=== PATIENT | female | born 1955 | race Caucasian/White ===

== ENCOUNTER 2021-07-24 16:37 | Inpatient (IN) | payer MEDICARE, MEDICAID, SELFPAY ==
[2021-07-24] VITALS (7 sets, daily range): BP systolic 102–121; BP diastolic 60–79; PULSE 76–122; RESP 16–24; TEMP 36.6–37.1; O2SAT 95–99; BMI 30.9
--- NOTE | 2021-07-24 | ECG_ITS ---
Test Reason : CHEST PAIN Blood Pressure : / mmHG Vent. Rate : 113 BPM Atrial Rate : 000 BPM P-R Int : 000 ms QRS Dur : 142 ms QT Int : 312 ms P-R-T Axes : 000 -24 240 degrees QTc Int : 427 ms Atrial fibrillation with rapid ventricular response with premature ventricular or aberrantly conducted complexes Left bundle branch block Abnormal ECG Electronic ventricular pacemaker is no longer evident QRS duration has increased Referred By: Generic ED Physician Electronically Signed By:JENNIFER TUTTLE MD
--- NOTE | ~2021-07-24 | XR_ITS ---
EXAMINATION: XR CHEST CLINICAL INFORMATION: Shortness of breath COMPARISON: 11/29/2016 and priors TECHNIQUE: AP portable upright view of the chest was obtained. FINDINGS: Left 3-lead AICD unchanged. Grossly stable heart and mediastinum. The central vessels are less well-defined than on prior. There are bilateral pleural effusions. Favor mild interstitial edema. There is a more dense right retrocardiac opacity which could represent focal consolidation such as pneumonia. Nonobstructive gas pattern. Stable degenerative spine disease. XR/XR chest 1V IMPRESSION: 1. Suspect pulmonary edema with indistinct prominent central vessels and small bilateral effusions. 2. Abnormal focal opacity in the medial right base, possibly pneumonia.
--- NOTE | 2021-07-24 17:18 | ED.SOB ---
HPI - SOB/Dyspnea General Chief Complaint: Dyspnea Stated Complaint: sob, chest tightness Time Seen by Provider: 07/24/21 17:15 Source: patient Mode of arrival: ambulatory Limitations: no limitations History of Present Illness HPI Narrative: Patient with history of congestive heart failure status post pacemaker placement negative cardiac catheterization few years ago negative stress test 6 months ago with history of atrial fibrillation in 2011 on baby aspirin comes here for 4 days of increased shortness of breath and palpitation with chest tightness noticed to have a heart rate of 122 beats per minute irregular. Patient never had similar complaints in the past denies any increased leg swelling patient does remember that she was told that she had AFib in 2011 when she had a pacemaker placed but she refused to take Eliquis Related Data Home Medications Medication Instructions Recorded Confirmed aspirin 81 mg chewable tablet 81 mg PO DAILY 07/24/21 07/24/21 biotin 125 mg PO DAILY 07/24/21 07/24/21 calcium carbonate 500 mg calcium 500 mg PO DAILY 07/24/21 07/24/21 (1,250 mg) tablet (Calcium 500) carvedilol 25 mg tablet 25 mg PO BID 07/24/21 07/24/21 cholecalciferol (vitamin D3) 125 125 mcg PO BID 07/24/21 07/24/21 mcg (5,000 unit) tablet (Vitamin D3) folic acid 1 mg tablet 1 mg PO SUMOTUTHFRSA 07/24/21 07/24/21 lisinopril 2.5 mg tablet 2.5 mg PO BEDTIME 07/24/21 07/24/21 methotrexate sodium 2.5 mg tablet 5 tab PO WE 07/24/21 07/24/21 multivitamin 1 tab PO DAILY 07/24/21 07/24/21 simvastatin 20 mg tablet 20 mg PO BEDTIME 07/24/21 07/24/21 Allergies Allergy/AdvReac Type Severity Reaction Status Date / Time erythromycin base Allergy Unknown NAUSEA Verified 07/24/21 16:52 [ERYTHROMYCIN BASE] indomethacin [Indomethacin] Allergy Unknown STOMACH Verified 07/24/21 16:52 UPSET & HEADACHE Sulfa (Sulfonamide Allergy Unknown Hives Verified 07/24/21 16:52 Antibiotics) sulfamethoxazole Allergy Unknown HIVES Verified 07/24/21 16:52 [From BACTRIM] trimethoprim [From BACTRIM] Allergy Unknown HIVES Verified 07/24/21 16:52 azithromycin [From Zithromax] AdvReac Unknown NAUSEA & Verified 07/24/21 16:52 VOMITTING Pt states no known food Allergy Unknown Hives Uncoded 07/24/21 16:52 allerg Review of Systems Review of Systems: Yes all other systems are reviewed and are negative [facility] Social History Social History Smoked in Last 30 Days: No Use of substances other than those prescribed or required for medical reasons: No Advance Directives: No Advance Directives Information Provided: No Physical Exam Vital Signs: Vital Signs: Last Vital Signs Temp 98.7 F 07/24/21 19:22 Pulse 121 H 07/24/21 19:51 Resp 17 07/24/21 19:22 BP 102/66 07/24/21 19:51 Pulse Ox 98 07/24/21 19:22 Body Mass Index 30.9 Appearance: Alert. Oriented X3. No acute distress. Eyes: No pallor or icterus ENT: Pharynx normal. Oral Mucosa moist Neck: Normal inspection. Neck supple. CVS: Irregular irregular heart rate no murmur or gallop Pulses normal. Respiratory: No respiratory distress. Equal air entry bilateral, no wheezing/rales/rhonchi Abdomen: Soft and nontender. Bowel sounds are present, no mass palpable, no CVA tenderness Skin: Skin warm and dry. Normal skin color. Normal skin turgor. Extremities: No lower extremity edema. No calf tenderness Neuro: Oriented X 3. No focal deficit MDM - SOB/Dyspnea MDM Narrative Medical decision making narrative: Patient with remote history of atrial fibrillation came with increased shortness of breath with palpitation noticed to be in atrial fibrillation with fast ventricular rate with CHF responded to Cardizem and lasix, 2 sets of cardiac enzymes negative for any delta change will start patient on Eliquis for chads score of 3 will admit patient for further evaluation Lab Data Attestation: I reviewed the patient's lab results. Result diagrams: 07/24/21 17:58 07/24/21 17:58 Labs: Lab Results 07/24/21 07/24/21 07/24/21 Range/Units 17:55 17:58 17:58 WBC 5.4 (4.8-10.8) X10*3/uL RBC 3.51 L (4.20-5.50) X10*6/uL Hgb 10.9 L (12.0-16.0) g/dl Hct 34.1 L (37.0-47.0) % MCV 97.2 (80.0-98.0) fL MCH 31.1 (27.0-33.0) pg MCHC 32.0 (31.0-35.0) g/dl RDW 14.4 (11.0-16.0) % Plt Count 214 (160-400) X10*3/uL MPV 10.5 (9.4-12.3) fL Immature Gran % (Auto) 0.4 (0.0-0.4) % Neut % (Auto) 70.9 (45-73) % Lymph % (Auto) 17.5 L (20-40) % [place] % (Auto) 8.4 (2-11) % Eos % (Auto) 2.2 (0-4) % Baso % (Auto) 0.6 (0-2) % Lymph # (Auto) 0.9 L (1.2-4.9) X10*3/uL [place] # (Auto) 0.5 (0.1-1.2) X10*3/uL Eos # (Auto) 0.1 (0.0-0.4) X10*3/uL Baso # (Auto) 0.0 (0.0-0.2) X10*3/uL Abs Immat Gran (auto) 0.02 (0.00-0.03) X10*3/uL Absolute Neuts (auto) 3.82 (2.0-8.3) x10*3/uL Absolute Nucleated RBC 0.000 (0.0-0.012) X10*3/uL Nucleated RBC % (auto) 0.0 (0.0-0.2) /100WBC PT (9.9-13.0) SEC INR (0.9-1.1) APTT (24.1-38.0) SEC Sodium 138 (135-145) mmol/L Potassium 4.7 (3.3-5.1) mmol/L Chloride 109 H (96-108) mmol/L Carbon Dioxide 22 (22-29) mmol/L Anion Gap 12 (12-20) BUN 17 H (9-16) mg/dL Creatinine 1.02 (0.5-1.4) mg/dL Estim Creat Clear Calc 56.0 Estimated GFR 54 Random Glucose 113 (60-115) mg/dL Calcium 8.8 (8.4-10.2) mg/dL Magnesium 1.9 (1.6-2.6) mg/dL Total Bilirubin 0.9 (0.0-1.0) mg/dL Direct Bilirubin 0.4 (0.0-0.5) mg/dL AST 19 (5-31) U/L ALT 17 (0-31) U/L Alkaline Phosphatase 83 (39-117) U/L Troponin I High Sens (<3.5-17.0) ng/L B-Natriuretic Peptide (<100) pg/mL Total Protein 6.0 L (6.5-8.0) g/dL Albumin 3.6 (3.5-5.0) g/dL COVID-19 (CHIDI) Negative (Negative) COVID-19 Clin Com See Note 07/24/21 07/24/21 07/24/21 Range/Units 17:58 18:22 20:21 WBC (4.8-10.8) X10*3/uL RBC (4.20-5.50) X10*6/uL Hgb (12.0-16.0) g/dl Hct (37.0-47.0) % MCV (80.0-98.0) fL MCH (27.0-33.0) pg MCHC (31.0-35.0) g/dl RDW (11.0-16.0) % Plt Count (160-400) X10*3/uL MPV (9.4-12.3) fL Immature Gran % (Auto) (0.0-0.4) % Neut % (Auto) (45-73) % Lymph % (Auto) (20-40) % [place] % (Auto) (2-11) % Eos % (Auto) (0-4) % Baso % (Auto) (0-2) % Lymph # (Auto) (1.2-4.9) X10*3/uL [place] # (Auto) (0.1-1.2) X10*3/uL Eos # (Auto) (0.0-0.4) X10*3/uL Baso # (Auto) (0.0-0.2) X10*3/uL Abs Immat Gran (auto) (0.00-0.03) X10*3/uL Absolute Neuts (auto) (2.0-8.3) x10*3/uL Absolute Nucleated RBC (0.0-0.012) X10*3/uL Nucleated RBC % (auto) (0.0-0.2) /100WBC PT 15.9 H (9.9-13.0) SEC INR 1.4 H (0.9-1.1) APTT 31.1 (24.1-38.0) SEC Sodium (135-145) mmol/L Potassium (3.3-5.1) mmol/L Chloride (96-108) mmol/L Carbon Dioxide (22-29) mmol/L Anion Gap (12-20) BUN (9-16) mg/dL Creatinine (0.5-1.4) mg/dL Estim Creat Clear Calc Estimated GFR Random Glucose (60-115) mg/dL Calcium (8.4-10.2) mg/dL Magnesium (1.6-2.6) mg/dL Total Bilirubin (0.0-1.0) mg/dL Direct Bilirubin (0.0-0.5) mg/dL AST (5-31) U/L ALT (0-31) U/L Alkaline Phosphatase (39-117) U/L Troponin I High Sens 18.5 H* 20.2 H* (<3.5-17.0) ng/L B-Natriuretic Peptide 603 H (<100) pg/mL Total Protein (6.5-8.0) g/dL Albumin (3.5-5.0) g/dL COVID-19 (CHIDI) (Negative) COVID-19 Clin Com ECG Data Attestation: I personally reviewed and interpreted this ECG as follows: Interpretation: Atrial fibrillation with heart rate 113 beats per minute left bundle branch block unifocal PVCs no acute ischemic event Discharge Plan Discharge Clinical Impression: Atrial fibrillation with RVR Congestive heart failure Qualifiers: Heart failure type: systolic Heart failure chronicity: acute on chronic Qualified Code(s): I50.23 - Acute on chronic systolic (congestive) heart failure Patient Disposition: Admitted As Inpatient
[2021-07-24] MEDS: dilTIAZem HCL 50 MG/10 ML VIAL 10 MG IVPUSH ×2 (18:01→19:48)
[2021-07-24 18:05] LABS: MANUAL DIFF FLAG NO
[2021-07-24 18:19] LABS: COVID-19 Test Negative (Negative); IDNOW Serial# 9DD0AD1C
[2021-07-24 18:21] LABS: Alanine Aminotransferase 17 U/L (0-31); Albumin Level 3.6 g/dL (3.5-5.0); Alkaline Phosphatase 83 U/L (39-117); Anion Gap 12 (12-20); Aspartate Amino Transferase 19 U/L (5-31); Bilirubin Direct 0.4 mg/dL (0.0-0.5); Bilirubin Total 0.9 mg/dL (0.0-1.0); Blood Urea Nitrogen 17 mg/dL (9-16); Calcium 8.8 mg/dL (8.4-10.2); Carbon Dioxide 22 mmol/L (22-29); Chloride 109 mmol/L (96-108); Estimated Glomerular Filt Rate 54; Glucose Random 113 mg/dL (60-115); Magnesium 1.9 mg/dL (1.6-2.6); Potassium 4.7 mmol/L (3.3-5.1); Sodium 138 mmol/L (135-145)
[2021-07-24 18:32] LABS: Basophils Percent Auto 0.6 % (0-2); Eosinophils Absolute Auto 0.1 X10*3/uL (0.0-0.4); Eosinophils Percent Auto 2.2 % (0-4); Hematocrit 34.1 % (37.0-47.0); Hemoglobin 10.9 g/dl (12.0-16.0); Imm Gran Abs Auto 0.02 X10*3/uL (0.00-0.03); Imm Gran Pct Auto 0.4 % (0.0-0.4); Lymphocytes Absolute Auto 0.9 X10*3/uL (1.2-4.9); Lymphocytes Percent Auto 17.5 % (20-40); Mean Corpuscular Hemoglobin 31.1 pg (27.0-33.0); Mean Corpuscular Volume 97.2 fL (80.0-98.0); Mean Platelet Volume 10.5 fL (9.4-12.3); Monocytes Absolute Auto 0.5 X10*3/uL (0.1-1.2); Monocytes Percent Auto 8.4 % (2-11); Neutrophils Absolute Auto 3.82 x10*3/uL (2.0-8.3); Neutrophils Percent Auto 70.9 % (45-73); Platelet Count 214 X10*3/uL (160-400); Red Blood Count 3.51 X10*6/uL (4.20-5.50); Red Cell Distribution Width 14.4 % (11.0-16.0); White Blood Count 5.4 X10*3/uL (4.8-10.8)
[2021-07-24 18:34] LABS: B Type Natriuretic Peptide 603 pg/mL (<100); Troponin-I High Sensitivity 18.5 ng/L (<3.5-17.0)
[2021-07-24] MEDS: Furosemide 20 MG/2 ML VIAL IVPUSH (18:36)
[2021-07-24 18:37] LABS: INTERNATIONAL NORM RATIO 1.4 (0.9-1.1); Prothrombin Time 15.9 SEC (9.9-13.0)
[2021-07-24 18:39] LABS: Partial Thromboplastin Time 31.1 SEC (24.1-38.0)
[2021-07-24] MEDS: Apixaban 5 MG TABLET PO (19:24)
--- NOTE | 2021-07-24 19:25 | PHA.MEDREC ---
Pharmacy Consult ? Medication Reconciliation Pharmacy has completed the medication reconciliation. There are no remarkable issues for provider's attention. Patient had a list of medications that match fill history. Destini Blackburn, CodiD
[2021-07-24] MEDS: dilTIAZem HCL CD 120 MG CAP.ER.DEG PO (19:51)
--- NOTE | 2021-07-24 21:33 | P.HPHOSP_ITS ---
History of Present Illness Date of Service: 07/24/21 Chief Complaint: SOB 66-year-old female with past medical history of CHF, status post defibrillator/pacemaker, history of atrial fibrillation, rheumatoid arthritis who presents to the hospital with complaints of shortness of breath as well as chest pain. Patient reports that she started having symptoms about 5 days ago where she developed dyspnea worsened on exertion, orthopnea, PND, she denies any leg swelling, no cough or sputum production. She also developed left-sided chest pain that is not radiating, chest pain feels like tightness in the chest, constant, midsternal, nonradiating, associated with a lot of activity around the house as the patient is trying to sell her house, 03/31, not relieved by rest. No 6 [place] exacerbate soni. Patient reports that she is selling her house therefore she has been doing a lot of cleaning and moving in going up and down 3 stories of stairs throughout the day and has been feeling a lot of stress lately. She denies any fever or chills, no dizziness, no headache, no palpitations, no nausea or vomiting, no change in vision, no abdominal pain, no diarrhea or constipation, no urinary symptoms. No numbness tingling or weakness Stable with temp of 98.7?, heart rate was found to be around 110 to 120s, r espiratory rate of 17, blood pressure 102/66 on room air Labs are significant for hemoglobin of 10.9, PT of 15.9, INR of 1.4, BUN of 17 with a creatinine of 1.02, troponin of 18.5 with a repeat of 20.2, BNP of 603 Suspect pulmonary edema with indistinct prominent central vessels and small bilateral effusions EKG showed AFib with RVR, LBB, no previous for comparison. reports that she has history of AFib but refused to take anticoagulation as she was afraid of the risks but is willing to start taking anticoagulation now Patient given 1 dose of Eliquis in the ED, Cardizem IV push and will be admitted for further management Review of Systems Review of Systems: Yes all other systems are reviewed and are negative [facility] Medical History (Updated 07/25/21 @ 06:05 by Chloe Dukes MD) Atrial fibrillation Blind left eye CHF (congestive heart failure) H/O cardiac pacemaker Rheumatoid arthritis Pertinent family history: Denies family history Surgical History (Updated 07/25/21 @ 06:05 by Chloe Dukes MD) No pertinent past surgical history Social History Household Members: Significant Other Housing: House Do you presently have visiting nurse or other home services: No Patient Tobacco Use Status: Former Tobacco user Quit Date: 2010 Tobacco use type: Cigarette Cigarette Packs Per Day: 1 Cigarettes Per Day: 20.0 Smoked in Last 30 Days: No Second Hand Smoke Exposure: No Use of substances other than those prescribed or required for medical reasons: No Currently Displaying Signs/Symptoms of Drug Intoxication Withdrawal: No Have you been hit, kicked, punched, or otherwise hurt by someone within the past year? If so, by whom?: No Do you feel safe in your current relationship?: Yes Is there a partner from a previous relationship who is making you feel unsafe now?: No Are you made to feel afraid or neglected: No Advance Directives: No Advance Directives Information Provided: No Do you have thoughts of harming others: None Do you have a plan to hurt others: No Plan Recently lost weight without trying: No Nutrition Risks: No Nutritional Risk Patient : No : No Poor oral hygiene: No Meds Allergies Allergy/AdvReac Type Severity Reaction Status Date / Time erythromycin base Allergy Unknown NAUSEA Verified 07/24/21 16:52 [ERYTHROMYCIN BASE] indomethacin [Indomethacin] Allergy Unknown STOMACH Verified 07/24/21 16:52 UPSET & HEADACHE Sulfa (Sulfonamide Allergy Unknown Hives Verified 07/24/21 16:52 Antibiotics) sulfamethoxazole Allergy Unknown HIVES Verified 07/24/21 16:52 [From BACTRIM] trimethoprim [From BACTRIM] Allergy Unknown HIVES Verified 07/24/21 16:52 azithromycin [From Zithromax] AdvReac Unknown NAUSEA & Verified 07/24/21 16:52 VOMITTING Pt states no known food Allergy Unknown Hives Uncoded 07/24/21 16:52 allerg Active Medications: Current Medications Pharmacy Consult (Consult Rx Perform Med Rec) 1 each MISCELLANE ONCE PRN PRN Reason: Consult order Home Medications Medication Instructions Recorded Confirmed Last Taken Type aspirin 81 mg chewable tablet 81 mg PO DAILY 07/24/21 07/24/21 07/24/21 History biotin 125 mg PO DAILY 07/24/21 07/24/21 07/24/21 History calcium carbonate 500 mg calcium 500 mg PO DAILY 07/24/21 07/24/21 07/24/21 History (1,250 mg) tablet (Calcium 500) carvedilol 25 mg tablet 25 mg PO BID 07/24/21 07/24/21 07/24/21 History cholecalciferol (vitamin D3) 125 125 mcg PO BID 07/24/21 07/24/21 07/24/21 History mcg (5,000 unit) tablet (Vitamin D3) folic acid 1 mg tablet 1 mg PO SUMOTUTHFRSA 07/24/21 07/24/21 07/24/21 History lisinopril 2.5 mg tablet 2.5 mg PO BEDTIME 07/24/21 07/24/21 07/23/21 History methotrexate sodium 2.5 mg tablet 5 tab PO WE 07/24/21 07/24/21 07/18/21 History multivitamin 1 tab PO DAILY 07/24/21 07/24/21 07/24/21 History simvastatin 20 mg tablet 20 mg PO BEDTIME 07/24/21 07/24/21 07/23/21 History Physical Exam Vital Signs and Narrative: Vital Signs: Last Vital Signs Temp 98.7 F 07/24/21 19:22 Pulse 121 H 07/24/21 19:51 Resp 17 07/24/21 19:22 BP 102/66 07/24/21 19:51 Pulse Ox 98 07/24/21 19:22 Body Mass Index 30.9 Const: General: cooperative and no acute distress Orientation/consciousness: patient oriented x3 Eyes: General: appearance normal, both eyes and all related structures Pupils: Equal, round and reactive pupils present Resp: Effort & Inspection: normal respiratory effort Auscultation: clear to auscultation bilaterally Cardio: Other: Tachycardia, irregular rhythm GI: Palpation (GI): Soft to palpation Auscultation: normal bowel sounds Skin: General skin exam: no rashes or lesions noted Neuro: General: patient oriented x3 Cranial nerves: Yes Equal, round and reactive pupils present Cognition (Neuro): normal cognition Extrem: General: Yes normal to inspection and Yes no pedal edema Results Labs CBC and Chem 7: 07/24/21 17:58 07/24/21 17:58 Labs: Laboratory Results - last 24 hr 07/24/21 07/24/21 07/24/21 17:55 17:58 17:58 MCV 97.2 MCH 31.1 MCHC 32.0 RDW 14.4 Plt Count 214 MPV 10.5 Immature Gran % (Auto) 0.4 Neut % (Auto) 70.9 Lymph % (Auto) 17.5 L [place] % (Auto) 8.4 Eos % (Auto) 2.2 Baso % (Auto) 0.6 Lymph # (Auto) 0.9 L [place] # (Auto) 0.5 Eos # (Auto) 0.1 Baso # (Auto) 0.0 Abs Immat Gran (auto) 0.02 Absolute Neuts (auto) 3.82 Absolute Nucleated RBC 0.000 Nucleated RBC % (auto) 0.0 PT INR APTT Anion Gap 12 Estim Creat Clear Calc 56.0 Estimated GFR 54 Random Glucose 113 Calcium 8.8 Magnesium 1.9 Total Bilirubin 0.9 Direct Bilirubin 0.4 AST 19 ALT 17 Alkaline Phosphatase 83 Troponin I High Sens B-Natriuretic Peptide Total Protein 6.0 L Albumin 3.6 COVID-19 (CHIDI) Negative COVID-19 Clin Com See Note 07/24/21 07/24/21 07/24/21 17:58 18:22 20:21 MCV MCH MCHC RDW Plt Count MPV Immature Gran % (Auto) Neut % (Auto) Lymph % (Auto) [place] % (Auto) Eos % (Auto) Baso % (Auto) Lymph # (Auto) [place] # (Auto) Eos # (Auto) Baso # (Auto) Abs Immat Gran (auto) Absolute Neuts (auto) Absolute Nucleated RBC Nucleated RBC % (auto) PT 15.9 H INR 1.4 H APTT 31.1 Anion Gap Estim Creat Clear Calc Estimated GFR Random Glucose Calcium Magnesium Total Bilirubin Direct Bilirubin AST ALT Alkaline Phosphatase Troponin I High Sens 18.5 H* 20.2 H* B-Natriuretic Peptide 603 H Total Protein Albumin COVID-19 (CHIDI) COVID-19 Clin Com ECG Interpretation: AFib with RVR with LBBB Imaging Radiologist's Impressions: Impressions Chest X-Ray 07/24/21 17:42 IMPRESSION: 1. Suspect pulmonary edema with indistinct prominent central vessels and small bilateral effusions. 2. Abnormal focal opacity in the medial right base, possibly pneumonia. Assessment and Plan (1) CHF exacerbation: Status: Acute (2) Atrial fibrillation with RVR: Status: Acute (3) Chest pain: Status: Acute (4) Elevated troponin: Status: Acute This is a 66-year-old female with past medical history of congestive heart failure as well as AFib who presents to the hospital with shortness of breath found to have CHF exacerbation and AFib with RVR # dyspnea - most likely secondary to CHF exacerbation, unlikely to be secondary to pneumonia, or PE - chest x-ray shows pulmonary edema with possible consolidation - patient has no leukocytosis, afebrile, tachycardia in the setting of AFib with RVR, no tachypnea and no other evidence of infection - will treat CHF as below - at this time will hold off on starting antibiotics as the x-ray finding of foci opacity most likely secondary to pulmonary congestion on less likely to be infectious unless patient develops fever or has leukocytosis # acute CHF exacerbation - patient has history of CHF but denies being on any diuretic - no hypoxia, has elevated BNP, chest x-ray evidence of pulmonary edema - will start on Lasix 40 IV b.i.d. - strict I&O, low-sodium diet, daily weight - echocardiogram - cardiology consult - trend troponin # AFib with RVR - ChadSVASc score of 3 - metoprolol IV push p.r.n. for heart rate above 110 - resume carvedilol - start on Eliquis # chest pain with elevated troponin - possibly type 2 in the setting of AFib with RVR as well as CHF - no EKG changes suggestive of ACS although has LBBB with no previous EKG for comparison - at this time will trend troponin - echocardiogram - consult cardiology # rheumatoid arthritis - continue methotrexate # HLD - continue statin DVT prophylaxis: Eliquis Quality Stroke Does the patient have a stroke diagnosis?: No VTE Prior VTE?: No VTE Risk Level:: Medical - moderate - high VTE Device Contraindication: Treatment Not Indicated VTE Drug Contraindication: N/A - Med Ordered
[2021-07-25] VITALS (12 sets, daily range): BP systolic 91–137; BP diastolic 52–74; PULSE 76–110; RESP 18–19; TEMP 35.9–37.1; O2SAT 91–97; BMI 32.3; BMI 32.4
[2021-07-25] MEDS: carvediloL 25 MG TABLET PO (01:10)
[2021-07-25] MEDS: 0.9 % Sodium Chloride Flush 3 ML SYRINGE IVFLUSH ×4 (01:10→20:22)
[2021-07-25] MEDS: Furosemide 40 MG/4 ML VIAL IVPUSH ×2 (06:15→17:12)
[2021-07-25 06:42] LABS: MANUAL DIFF FLAG NO
[2021-07-25 06:46] LABS: Basophils Percent Auto 0.2 % (0-2); Eosinophils Absolute Auto 0.3 X10*3/uL (0.0-0.4); Eosinophils Percent Auto 8.1 % (0-4); Hematocrit 32.1 % (37.0-47.0); Hemoglobin 10.4 g/dl (12.0-16.0); Imm Gran Abs Auto 0.01 X10*3/uL (0.00-0.03); Imm Gran Pct Auto 0.2 % (0.0-0.4); Lymphocytes Absolute Auto 1.1 X10*3/uL (1.2-4.9); Lymphocytes Percent Auto 26.4 % (20-40); Mean Corpuscular HGB Conc 32.4 g/dl (31.0-35.0); Mean Corpuscular Hemoglobin 30.4 pg (27.0-33.0); Mean Corpuscular Volume 93.9 fL (80.0-98.0); Mean Platelet Volume 10.3 fL (9.4-12.3); Monocytes Absolute Auto 0.4 X10*3/uL (0.1-1.2); Monocytes Percent Auto 10.2 % (2-11); Neutrophils Absolute Auto 2.31 x10*3/uL (2.0-8.3); Neutrophils Percent Auto 54.9 % (45-73); Platelet Count 191 X10*3/uL (160-400); Red Blood Count 3.42 X10*6/uL (4.20-5.50); White Blood Count 4.2 X10*3/uL (4.8-10.8)
[2021-07-25 07:11] LABS: Anion Gap 9 (12-20); Blood Urea Nitrogen 17 mg/dL (9-16); Calcium 8.5 mg/dL (8.4-10.2); Carbon Dioxide 27 mmol/L (22-29); Chloride 106 mmol/L (96-108); Creatinine Clr Calc Pharmacy 63.7; Estimated Glomerular Filt Rate > 60; Glucose Random 99 mg/dL (60-115); Potassium 4.3 mmol/L (3.3-5.1); Sodium 138 mmol/L (135-145)
[2021-07-25 07:41] LABS: Troponin-I High Sensitivity 19.5 ng/L (<3.5-17.0)
[2021-07-25] MEDS: Aspirin 81 MG TAB.CHEW PO (08:51)
[2021-07-25] MEDS: Apixaban 5 MG TABLET PO ×2 (08:51→20:22)
[2021-07-25] MEDS: Multivitamin TABLET 1 TAB PO (08:51)
[2021-07-25] MEDS: Cholecalciferol (Vitamin D3) 25 MCG TABLET 125 MCG PO ×2 (08:51→20:22)
[2021-07-25] MEDS: metHOTREXate sodium 2.5 MG TABLET 12.5 MG PO (08:52)
--- NOTE | 2021-07-25 10:55 | P.CONCA_ITS ---
History of Present Illness History of Present Illness Date of Service: 07/25/21 Requesting physician: [facility] Consult reason: atrial fibrillation and congestive heart failure Chief complaint: A Fib w RVR, CHF Narrative: I was requested to see Naz in cardiology consultation today for congestive heart failure as well as atrial fibrillation. She is a pleasant 66-year-old woman, however not very well aware of her prior cardiac history. 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 She had a left bundle-branch block and at that time was seen by EPS for evaluation for biventricular ICD. However subsequent to that she switched her care to Cardiology in [facility]. She had a [employer] biventricular ICD placed in . She is not very aware of further history including her most recent LV ejection fraction. However she says she was diagnosed with congestive heart failure in 2010 and subsequently had led to the diagnosis of cardiomyopathy and coronary artery disease. She has never required revascularization for coronary artery disease and has not had myocardial infarction as per her. Recently her tube turner's office has been recommending her to be on Eliquis, she was not sure as to why but on further questioning said that she this was probably for atrial fibrillation. Not sure with the patient persistent atrial fibrillation or intermittent paroxysmal atrial fibrillation, however this was detected only on the device as per her. She did not have any symptoms of palpitation. For about few weeks she has been very stressed as she is planning to move to [place] as in the process of selling her house. She was cleaning her house and having ataxia and was very busy last got acutely short of breath, and blamed it on stress and may be over exertion. However she continued to get progressively worse with shortness of breath minimal activity as well as orthopnea as well as leg edema. Eventually she decided to come to the emergency room yesterday. She was noted in pulmonary edema in a BNP was elevated in the 600 range. She was also noted to be in atrial fibrillation with rapid ventricular response. She does not recall in the near past that she had admission for heart failure. She has been taking all medications including carvedilol, lisinopril, aspirin, simvastatin. She is extremely active for her age and her diagnosis of rheumatoid arthritis as per her maintains activity of daily living without any restriction. She says she feels a lot better compared to when she came in the hospital. She was also noted to have minimal troponin elevation. EKG shows atrial fibrillation with left bundle-branch block, monitor shows atrial fibrillation which is persistent with intermittent pacing now that her heart rate is better controlled. Review of Systems Constitutional: Constitutional: Reports no additional constitutional complaints Eyes: Eyes: Reports no additional eye complaints Cardiovascular: Cardiovascular: Denies chest pain, Reports leg edema, Denies lightheadedness, Denies Loss of Consciousness, Denies palpitations, Reports dyspnea on exertion, Reports orthopnea and Reports paroxysmal nocturnal dyspnea Respiratory: Respiratory: Reports no additional respiratory complaints and Reports dyspnea on exertion Gastrointestinal: Gastrointestinal: Reports no additional gastrointestinal complaints Genitourinary: Genitourinary: Reports no additional female genitourinary complaints Musculoskeletal: Musculoskeletal: Reports no additional musculoskeletal complaints Integumentary/Breasts: Skin/Breast: Reports system reviewed and no additional complaints, except as docu Neurologic: Reports system reviewed and no additional complaints, except as documented Psychiatric: Psychiatric: Reports no additional psychiatric complaints Endocrine: Endocrine: Reports no additional endocrine complaints and Denies palpitations Hematologic/Lymphatic: Hematologic/Lymphatic: Reports no additional hematologic/lymphatic complaints Allergic/Immunologic: Allergic/Immunologic: Reports no additional allergic/immunologic complaints [facility] Past Medical History Medical History (Updated 07/25/21 @ 11:07 by Chris Saxena MD) Atrial fibrillation Biventricular ICD (implantable cardioverter-defibrillator) in place Blind left eye CAD (coronary artery disease) CHF (congestive heart failure) H/O cardiac pacemaker Nonischemic cardiomyopathy Rheumatoid arthritis Surgical History Surgical History No pertinent past surgical history Social History Social History Household Members: Significant Other Housing: House Do you presently have visiting nurse or other home services: No Patient Tobacco Use Status: Former Tobacco user Quit Date: 2010 Tobacco use type: Cigarette Cigarette Packs Per Day: 1 Cigarettes Per Day: 20.0 Smoked in Last 30 Days: No Second Hand Smoke Exposure: No Use of substances other than those prescribed or required for medical reasons: No Currently Displaying Signs/Symptoms of Drug Intoxication Withdrawal: No Have you been hit, kicked, punched, or otherwise hurt by someone within the past year? If so, by whom?: No Do you feel safe in your current relationship?: Yes Is there a partner from a previous relationship who is making you feel unsafe now?: No Are you made to feel afraid or neglected: No Advance Directives: No Advance Directives Information Provided: No Do you have thoughts of harming others: None Do you have a plan to hurt others: No Plan Recently lost weight without trying: No Nutrition Risks: No Nutritional Risk Patient : No : No Poor oral hygiene: No Meds Allergies Allergy/AdvReac Type Severity Reaction Status Date / Time erythromycin base Allergy Unknown NAUSEA Verified 07/24/21 16:52 [ERYTHROMYCIN BASE] indomethacin [Indomethacin] Allergy Unknown STOMACH Verified 07/24/21 16:52 UPSET & HEADACHE Sulfa (Sulfonamide Allergy Unknown Hives Verified 07/24/21 16:52 Antibiotics) sulfamethoxazole Allergy Unknown HIVES Verified 07/24/21 16:52 [From BACTRIM] trimethoprim [From BACTRIM] Allergy Unknown HIVES Verified 07/24/21 16:52 azithromycin [From Zithromax] AdvReac Unknown NAUSEA & Verified 07/24/21 16:52 VOMITTING Pt states no known food Allergy Unknown Hives Uncoded 07/24/21 16:52 allerg Active Medications: Current Medications Acetaminophen (Acetaminophen 325 Mg Tablet) 650 mg PO Q6H PRN PRN Reason: Pain, Mild (Pain Scale 1-3) Apixaban (Apixaban 5 Mg Tablet) 5 mg PO BID [facility] Last Admin: 07/25/21 08:51 Dose: 5 mg Documented by: Aspirin (Aspirin 81 Mg Tab.Chew) 81 mg PO DAILY [facility] Last Admin: 07/25/21 08:51 Dose: 81 mg Documented by: Atorvastatin Calcium (Atorvastatin Calcium 10 Mg Tablet) 10 mg PO BEDTIME [facility] Carvedilol (Carvedilol 25 Mg Tablet) 25 mg PO BID [facility]; Protocol Last Admin: 07/25/21 08:52 Dose: Not Given Documented by: Docusate Sodium (Docusate Sodium 100 Mg Capsule) 100 mg PO DAILY PRN PRN Reason: Constipation Folic Acid (Folic Acid 1 Mg Tablet) 1 mg [facility] Last Admin: 07/25/21 00:30 Dose: Not Given Documented by: Furosemide (Furosemide 40 Mg/4 Ml Vial) 40 mg IVPUSH Q12H [facility]; Protocol Last Admin: 07/25/21 06:15 Dose: 40 mg Documented by: Lisinopril (Lisinopril 2.5 Mg Tablet) 2.5 mg PO BEDTIME [facility]; Protocol Methotrexate (Methotrexate Sodium 2.5 Mg Tablet) 12.5 mg PO We@0900 [facility] Last Admin: 07/25/21 08:52 Dose: 12.5 mg Documented by: Metoprolol Tartrate (Metoprolol Tartrate 5 Mg/5 Ml Vial) 2.5 mg IVPUSH Q6H PRN PRN Reason: HR>110 Multivitamins/Vitamin C (Multivitamin Tablet) 1 tab PO DAILY [facility] Last Admin: 07/25/21 08:51 Dose: 1 tab Documented by: Ondansetron HCl (Ondansetron Hcl 4 Mg/2 Ml Vial) 4 mg IVPUSH Q8H PRN PRN Reason: Nausea and Vomiting Pharmacy Consult (Consult Rx Perform Med Rec) 1 each MISCELLANE ONCE PRN PRN Reason: Consult order Sodium Chloride (0.9 % Sodium Chloride Flush 3 Ml Syringe) 3 ml IVFLUSH QSHIFT [facility] Last Admin: 07/25/21 08:52 Dose: 3 ml Documented by: Vitamin D (Cholecalciferol (Vitamin D3) 25 Mcg Tablet) 125 mcg PO BID [facility] Last Admin: 07/25/21 08:51 Dose: 125 mcg Documented by: Home Medications Medication Instructions Recorded Confirmed Last Taken Type aspirin 81 mg chewable tablet 81 mg PO DAILY 07/24/21 07/24/21 07/24/21 History biotin 125 mg PO DAILY 07/24/21 07/24/21 07/24/21 History calcium carbonate 500 mg calcium 500 mg PO DAILY 07/24/21 07/24/21 07/24/21 History (1,250 mg) tablet (Calcium 500) carvedilol 25 mg tablet 25 mg PO BID 07/24/21 07/24/21 07/24/21 History cholecalciferol (vitamin D3) 125 125 mcg PO BID 07/24/21 07/24/21 07/24/21 History mcg (5,000 unit) tablet (Vitamin D3) folic acid 1 mg tablet 1 mg PO SUMOTUTHFRSA 07/24/21 07/24/21 07/24/21 History lisinopril 2.5 mg tablet 2.5 mg PO BEDTIME 07/24/21 07/24/21 07/23/21 History methotrexate sodium 2.5 mg tablet 5 tab PO WE 07/24/21 07/24/21 07/18/21 History multivitamin 1 tab PO DAILY 07/24/21 07/24/21 07/24/21 History simvastatin 20 mg tablet 20 mg PO BEDTIME 07/24/21 07/24/21 07/23/21 History Physical Exam Vital Signs: Vital Signs: Last Vital Signs Temp 96.6 F L 07/25/21 07:10 Pulse 76 07/25/21 08:52 Resp 18 07/25/21 07:10 BP 91/56 L 07/25/21 08:52 Pulse Ox 95 07/25/21 07:10 Body Mass Index 32.4 Const: General: cooperative, comfortable, no acute distress, alert and awake Nutritional Appearance: overweight Orientation/consciousness: patient oriented x3 Limitations: no limitations HENMT: Head: Yes normocephalic and Yes atraumatic Neck: Neck: Yes trachea midline, Yes supple and Yes JVD Resp: Effort & Inspection: normal respiratory effort Auscultation: rales bilateral 1/[address] up Cardio: Jugular venous distension: JVD Rate: regular rate Rhythm: abnormal rhythm irregularly irregular Heart sounds: S1 normal heart sound present, S2 normal heart sound present, no click, no gallops, no murmurs and no rubs GI: Auscultation: normal bowel sounds Skin: General skin exam: no rashes or lesions noted Neuro: General: patient oriented x3 and no focal motor deficits Extrem: General: No clubbing, No cyanosis and Yes edema Psych: Appearance: grossly normal Results Labs and Meds Result diagrams: 07/25/21 06:37 07/25/21 06:37 Lab results: Laboratory Results - last 24 hr 07/24/21 07/24/21 07/24/21 17:55 17:58 17:58 WBC 5.4 RBC 3.51 L Hgb 10.9 L Hct 34.1 L MCV 97.2 MCH 31.1 MCHC 32.0 RDW 14.4 Plt Count 214 MPV 10.5 Immature Gran % (Auto) 0.4 Neut % (Auto) 70.9 Lymph % (Auto) 17.5 L [place] % (Auto) 8.4 Eos % (Auto) 2.2 Baso % (Auto) 0.6 Lymph # (Auto) 0.9 L [place] # (Auto) 0.5 Eos # (Auto) 0.1 Baso # (Auto) 0.0 Abs Immat Gran (auto) 0.02 Absolute Neuts (auto) 3.82 Absolute Nucleated RBC 0.000 Nucleated RBC % (auto) 0.0 PT INR APTT Sodium 138 Potassium 4.7 Chloride 109 H Carbon Dioxide 22 Anion Gap 12 BUN 17 H Creatinine 1.02 Estim Creat Clear Calc 56.0 Estimated GFR 54 Random Glucose 113 Calcium 8.8 Magnesium 1.9 Total Bilirubin 0.9 Direct Bilirubin 0.4 AST 19 ALT 17 Alkaline Phosphatase 83 Troponin I High Sens B-Natriuretic Peptide Total Protein 6.0 L Albumin 3.6 COVID-19 (CHIDI) Negative COVID-19 Clin Com See Note 07/24/21 07/24/21 07/24/21 17:58 18:22 20:21 WBC RBC Hgb Hct MCV MCH MCHC RDW Plt Count MPV Immature Gran % (Auto) Neut % (Auto) Lymph % (Auto) [place] % (Auto) Eos % (Auto) Baso % (Auto) Lymph # (Auto) [place] # (Auto) Eos # (Auto) Baso # (Auto) Abs Immat Gran (auto) Absolute Neuts (auto) Absolute Nucleated RBC Nucleated RBC % (auto) PT 15.9 H INR 1.4 H APTT 31.1 Sodium Potassium Chloride Carbon Dioxide Anion Gap BUN Creatinine Estim Creat Clear Calc Estimated GFR Random Glucose Calcium Magnesium Total Bilirubin Direct Bilirubin AST ALT Alkaline Phosphatase Troponin I High Sens 18.5 H* 20.2 H* B-Natriuretic Peptide 603 H Total Protein Albumin COVID-19 (CHIDI) COVID-19 Clin Com 07/25/21 07/25/21 07/25/21 06:37 06:37 06:37 WBC 4.2 L RBC 3.42 L Hgb 10.4 L Hct 32.1 L MCV 93.9 MCH 30.4 MCHC 32.4 RDW 14.0 Plt Count 191 MPV 10.3 Immature Gran % (Auto) 0.2 Neut % (Auto) 54.9 Lymph % (Auto) 26.4 [place] % (Auto) 10.2 Eos % (Auto) 8.1 H Baso % (Auto) 0.2 Lymph # (Auto) 1.1 L [place] # (Auto) 0.4 Eos # (Auto) 0.3 Baso # (Auto) 0.0 Abs Immat Gran (auto) 0.01 Absolute Neuts (auto) 2.31 Absolute Nucleated RBC 0.000 Nucleated RBC % (auto) 0.0 PT INR APTT Sodium 138 Potassium 4.3 Chloride 106 Carbon Dioxide 27 Anion Gap 9 L BUN 17 H Creatinine 0.92 Estim Creat Clear Calc 63.7 Estimated GFR > 60 Random Glucose 99 Calcium 8.5 Magnesium Total Bilirubin Direct Bilirubin AST ALT Alkaline Phosphatase Troponin I High Sens 19.5 H* B-Natriuretic Peptide Total Protein Albumin COVID-19 (CHIDI) COVID-19 Clin Com Imaging Radiologist's impression: Impressions Chest X-Ray 07/24/21 17:42 IMPRESSION: 1. Suspect pulmonary edema with indistinct prominent central vessels and small bilateral effusions. 2. Abnormal focal opacity in the medial right base, possibly pneumonia. Assessment and Plan (1) CHF exacerbation: Status: Acute Acute onset congestive heart failure in this middle-aged woman with prior history of nonischemic cardiomyopathy as well as coronary artery disease with biventricular ICD in place, suspect related to development of persistent atrial fibrillation with loss of AV synchrony. Clinically still in heart failure with bilateral rales. Continue IV diuresis. Will evaluate her echocardiogram which was already done. Continue carvedilol therapy. Avoid Cardizem therapy due to her low ejection fraction. If need be for rate control use p.r.n. metoprolol and also can use IV digoxin. See below for further management of atrial fibrillation. Will switch her lisinopril to valsartan therapy and eventually switch to Entresto therapy. Also will add Aldactone 12.5 mg to her regimen. Strict intake and output chart needs to be pursued. Trend BMP. Replace electrolytes as needed. (2) Atrial fibrillation with RVR: Status: Acute Persistent atrial fibrillation rapid ventricular response, most likely cause for her decompensation. I think she would benefit with rhythm control approach. Will evaluate her echocardiogram and biatrial chamber size. However given unknown duration of atrial fibrillation will require JEREMI guided cardioversion. This was discussed with her. She is agreeable to this management plan. This will be scheduled once her heart failure is better compensated. Probably in 2 days. Continue carvedilol meanwhile for rate control. If rate becomes difficult control can use digoxin therapy as well. CHADSVASc score of at least 4. Strongly recommend oral anticoagulation therapy. Sanchez is a good choice. She is agreeable to continue this in the long run. (3) Elevated troponin: Status: Acute Elevated troponin which is most likely due to decompensated heart failure setting of AFib with rapid ventricular response and underlying coronary artery disease. Not suggestive acute coronary syndrome. No need for additional treatment. (4) Biventricular ICD (implantable cardioverter-defibrillator) in place: Status: Acute Biventricular ICD in place. Working well but under sensing her atrial fibrillation. This will need to be reprogrammed 1 she has converted to sinus rhythm. She is also close to [facility], may need pulse generator replacement in the near future prior to her moving to [place] (5) CAD (coronary artery disease): Status: Acute Known history of CAD with prior RCA occlusion with collaterals. Not sure if she has progressive coronary artery disease causing her congestive heart failure. This may be evaluated with ischemic testing, can probably done as outpatient. Continue statin therapy would consider switching her to atorvastatin 80 mg. She is now on full oral anticoagulation and aspirin can be discontinued to reduce bleeding risk. Spent greater than 45 minutes in managing her care. Thank you for allowing me to partake in her care Procedures Date of Service Date of Service: 07/25/21 Cardiac Device Check Cardiac Device Check Details: [employer] biventricular ICD in place. Noted to be in atrial fibrillation, however this was not detected by the device due to undersensing of atrial fibrillation. RV and LV pacing thresholds were not evaluated on this study. Biventricular pacing 87% of the time. Battery life is at MARIA D. Pacing and shock lead impedance is stable. Noted on impedance monitoring significantly lowering impedance for about 2 weeks consistent with her symptoms [id number]-AM Cardiac Device Check, multi lead implantable defibrillator Procedure code (CPT) selection complete
--- NOTE | 2021-07-25 11:14 | MHC.CM.PN ---
pt lives in a home c her s.o. , she reports that she is independent in her care. her s.o. can help her c any needs she may have, this will include a ride home at dc. pt denies the need for vna at dc. dc plan is home no svcs. cm to cont. to follow.
[2021-07-25] MEDS: Spironolactone 25 MG TABLET 12.5 MG PO (12:11)
--- NOTE | 2021-07-25 12:26 | HO.PM.IMPN ---
Subjective Subjective Date of Service: 07/25/21 Interval History: f/u on afib, heart failure .. she seems better, still sob some, no palpitation Review of Systems no fever sob Physical Exam Vital Signs: Vital Signs: Last Vital Signs Temp 97.4 F 07/25/21 11:01 Pulse 87 07/25/21 12:11 Resp 18 07/25/21 11:01 BP 103/53 L 07/25/21 12:11 Pulse Ox 93 07/25/21 11:01 Body Mass Index 32.4 General: AO X 3, no acute distress Resp: CTA bilateral CVS: S1,S2, iregular iregualr GI: +BS, NT, no distention Skin: No rash Neuro: motor grossly intact Psych: appropriate affect Objective Data Active Medications Acetaminophen (Acetaminophen 325 Mg Tablet) 650 mg PO Q6H PRN PRN Reason: Pain, Mild (Pain Scale 1-3) Apixaban (Apixaban 5 Mg Tablet) 5 mg PO BID [facility] Atorvastatin Calcium (Atorvastatin Calcium 10 Mg Tablet) 10 mg PO BEDTIME [facility] Carvedilol (Carvedilol 25 Mg Tablet) 25 mg PO BID [facility]; Protocol Last Admin: 07/25/21 08:52 Dose: Not Given Documented by: RODO Non-Admin Reason: Patient Condition Contraindication Docusate Sodium (Docusate Sodium 100 Mg Capsule) 100 mg PO DAILY PRN PRN Reason: Constipation Folic Acid (Folic Acid 1 Mg Tablet) 1 mg PO SUMOTUTHFRSA [facility] Last Admin: 07/25/21 00:30 Dose: Not Given Documented by: ÁLVARO Non-Admin Reason: Not In Room Furosemide (Furosemide 40 Mg/4 Ml Vial) 40 mg IVPUSH Q12H [facility]; Protocol Last Admin: 07/25/21 06:15 Dose: 40 mg Documented by: ÁLVARO Methotrexate (Methotrexate Sodium 2.5 Mg Tablet) 12.5 mg PO We@0900 [facility] Last Admin: 07/25/21 08:52 Dose: 12.5 mg Documented by: RODO Metoprolol Tartrate (Metoprolol Tartrate 5 Mg/5 Ml Vial) 2.5 mg IVPUSH Q6H PRN PRN Reason: HR>110 Multivitamins/Vitamin C (Multivitamin Tablet) 1 tab PO DAILY [facility] Last Admin: 07/25/21 08:51 Dose: 1 tab Documented by: RODO Ondansetron HCl (Ondansetron Hcl 4 Mg/2 Ml Vial) 4 mg IVPUSH Q8H PRN PRN Reason: Nausea and Vomiting Pharmacy Consult (Consult Rx Perform Med Rec) 1 each MISCELLANE ONCE PRN PRN Reason: Consult order Sodium Chloride (0.9 % Sodium Chloride Flush 3 Ml Syringe) 3 ml IVFLUSH QSHIFT [facility] Last Admin: 07/25/21 08:52 Dose: 3 ml Documented by: RODO Spironolactone (Spironolactone 25 Mg Tablet) 12.5 mg PO DAILY [facility]; Protocol Last Admin: 07/25/21 12:11 Dose: 12.5 mg Documented by: RODO Valsartan (Valsartan 40 Mg Tablet) 20 mg PO BID [facility]; Protocol Vitamin D (Cholecalciferol (Vitamin D3) 25 Mcg Tablet) 125 mcg PO BID [facility] Last Admin: 07/25/21 08:51 Dose: 125 mcg Documented by: RODO Labs CBC & Chem 7: 07/25/21 06:37 07/25/21 06:37 Labs: Laboratory Results - last 24 hr 07/24/21 07/24/21 07/24/21 17:55 17:58 17:58 MCV 97.2 MCH 31.1 MCHC 32.0 RDW 14.4 Plt Count 214 MPV 10.5 Immature Gran % (Auto) 0.4 Neut % (Auto) 70.9 Lymph % (Auto) 17.5 L [place] % (Auto) 8.4 Eos % (Auto) 2.2 Baso % (Auto) 0.6 Lymph # (Auto) 0.9 L [place] # (Auto) 0.5 Eos # (Auto) 0.1 Baso # (Auto) 0.0 Abs Immat Gran (auto) 0.02 Absolute Neuts (auto) 3.82 Absolute Nucleated RBC 0.000 Nucleated RBC % (auto) 0.0 PT INR APTT Anion Gap 12 Estim Creat Clear Calc 56.0 Estimated GFR 54 Random Glucose 113 Calcium 8.8 Magnesium 1.9 Total Bilirubin 0.9 Direct Bilirubin 0.4 AST 19 ALT 17 Alkaline Phosphatase 83 Troponin I High Sens B-Natriuretic Peptide Total Protein 6.0 L Albumin 3.6 COVID-19 (CHIDI) Negative COVID-Clinical Ink See Note 07/24/21 07/24/21 07/24/21 17:58 18:22 20:21 MCV MCH MCHC RDW Plt Count MPV Immature Gran % (Auto) Neut % (Auto) Lymph % (Auto) [place] % (Auto) Eos % (Auto) Baso % (Auto) Lymph # (Auto) [place] # (Auto) Eos # (Auto) Baso # (Auto) Abs Immat Gran (auto) Absolute Neuts (auto) Absolute Nucleated RBC Nucleated RBC % (auto) PT 15.9 H INR 1.4 H APTT 31.1 Anion Gap Estim Creat Clear Calc Estimated GFR Random Glucose Calcium Magnesium Total Bilirubin Direct Bilirubin AST ALT Alkaline Phosphatase Troponin I High Sens 18.5 H* 20.2 H* B-Natriuretic Peptide 603 H Total Protein Albumin COVID-19 (CHIDI) gamigo 07/25/21 07/25/21 07/25/21 06:37 06:37 06:37 MCV 93.9 MCH 30.4 MCHC 32.4 RDW 14.0 Plt Count 191 MPV 10.3 Immature Gran % (Auto) 0.2 Neut % (Auto) 54.9 Lymph % (Auto) 26.4 [place] % (Auto) 10.2 Eos % (Auto) 8.1 H Baso % (Auto) 0.2 Lymph # (Auto) 1.1 L [place] # (Auto) 0.4 Eos # (Auto) 0.3 Baso # (Auto) 0.0 Abs Immat Gran (auto) 0.01 Absolute Neuts (auto) 2.31 Absolute Nucleated RBC 0.000 Nucleated RBC % (auto) 0.0 PT INR APTT Anion Gap 9 L Estim Creat Clear Calc 63.7 Estimated GFR > 60 Random Glucose 99 Calcium 8.5 Magnesium Total Bilirubin Direct Bilirubin AST ALT Alkaline Phosphatase Troponin I High Sens 19.5 H* B-Natriuretic Peptide Total Protein Albumin COVID-19 (CHIDI) [email or web address] Assessment and Plan (1) CHF exacerbation: Status: Acute (2) Atrial fibrillation with RVR: Status: Acute Assessment and Plan: ?a 66-year-old female with past medical history of congestive heart failure as well as AFib who presents to the hospital with shortness of breath found to have CHF exacerbation and AFib with RVR # Dyspena d/t heart failure, better # acute CHF exacerbation--EF is unknown at this point unbable to further classify -probably decompensated d/t AFIB with RVR -continue IV Lasix, monitor I/O, treated underlying AFIB per cardio guidance -Echo to assess EF -continue coreg, aldactone,diovan # AFib with RVR--rate is better - ChadSVASc score of 3 -continue coreg -continue eliquis -Cardiology is planning cardioversion proably tomorrow # chest pain with mild elevated troponin--no evidence of acute ischemica, likely demand myocardial injury from afib with RVR # rheumatoid arthritis - continue methotrexate # HLD #CAD/ischemic cardiomyopathy has AICD, statin, BB, no ASA d/t eliquis - continue statin Quality Stroke Does the patient have a stroke diagnosis?: No VTE Prior VTE?: No VTE Risk Level:: Medical - moderate - high VTE Device Contraindication: Treatment Not Indicated VTE Drug Contraindication: N/A - Med Ordered
[2021-07-25] MEDS: Atorvastatin Calcium 10 MG TABLET PO (20:22)
--- NOTE | 2021-07-25 23:44 | CA_ITS ---
Transthoracic Echocardiogram Patient (Last, First, Middle): Naz Barrios, Gender: Female Date of : 1955 Age: 66 Procedure Date: 07/25/2021 Procedure Type: Transthoracic Echocardiogram Location: [facility] [place] Height: 162.56 cm Weight: 85.28 kg BSA: 1.91 m2 Heart Rate: bpm BP: 103 / 56 mmHg Revenue Field Agent: Referring MD: Chloe Dukes MD Etl Analyst: Chris Saxena MD Symptoms: CHF, A fib Study Quality: Fair ECG Rhythm: Atrial Fibrillation Conclusions: - 1. Severe LV systolic dysfunction with LVEF of 20-25% with restrictive filling pattern 2. Severely dilated left atrium 3. Mild aortic regurgitation 4. [id number] mitral regurgitation 5. Normal RV systolic pressure with mildly elevated right atrial pressures 6. No gross pericardial effusion Findings Procedure Information Contrast agent, definity, is being given per protocol without apparent complications. Left Ventricle Normal left ventricular cavity size. There is normal left ventricular wall thickness. The left ventricular systolic function is severely decreased. The visually estimated ejection fraction is between 20-25%. There is severe global hypokinesis. There is paradoxical septal motion consistent with a left bundle branch block. Spectral Doppler is indicative of a restrictive filling pattern. Right Ventricle Normal right ventricular cavity size. There is low normal right ventricular systolic function. There is an ICD wire seen in the right ventricle. Atria The left atrium is severely dilated. There is no evidence of interatrial shunt. The right atrium is mildly dilated. Aortic Valve Normal aortic valve structure and function. There is no aortic valve stenosis. There is mild aortic valve regurgitation. Mitral Valve There is mild anterior and posterior mitral leaflet thickening. There is mild to moderate mitral valve regurgitation. There is no mitral valve stenosis. Tricuspid Valve Likely normal tricuspid valve structure and function. There is mild to moderate tricuspid valve regurgitation. The right ventricular systolic pressure is 28 mmHg. Mildly elevated right atrial pressure. There is no evidence of pulmonary hypertension. Great Vessels All visible segments of the aorta are normal in size. The pulmonary artery was not well visualized. Venous The inferior vena cava is moderately dilated and collapses less than 50% with inspiration. Pericardium/Pleural There is no evidence of pericardial effusion. Prior Study Comparison No previous study in the last 5 years for comparison Measurements 2D Linear Measurements IVSd: 1.06 0.6-0.9/0.6-1.0 cm LVIDd: 5.14 3.9-5.3/4.2-5.9 cm LVIDd Index: 2.69 2.4-3.2/2.2-3.1 cm/m2 LVIDs: 4.47 2.0-3.6 cm LVPWd: 1.02 0.7-1.1 cm Ao Root: 3.60 2.1-3.5 cm LA Diam: 4.30 2.7-3.8/3.0-4.0 cm LAIDs Index: 2.25 1.5-2.3 cm/m2 LV Mass: 250.19 67-162/88-224 g LV Mass Index: 130.99 43-95/49-115 g/m2 LVOT Diam: 2.30 3.0+(-)1.3 cm 2D Systolic Function EF 4C: 14.40 >55% EF 2C: 26.20 >55% EF BiP: 20.90 >55% Mitral Valve MV Pk E: 1.20 MV Decel Time: 260.00 E'Lateral: 14.10 E'Medial: 6.20 E/E' Med: 19.40 E/E' Lat: 8.50 PHT: 76.00 MVA PHT: 2.89 Decel [place]: 4.64 MR Vol - PW Dopp: 48.67 MR VTI: 1.57 MR ERO: 31.00 MR Alias Richardson: 0.60 MR RAD: 0.60 Aortic Valve AoV Pk Richardson: 1.31 AoV Mn Richardson: 0.87 AoV VTI: 0.26 AoV Pk Grad: 7.00 Aov Mn Grad: 4.00 VALENTINO Cont.VTI: 2.48 AI Pk Richardson: 3.70 AI [place]: 1.65 LVOT LVOT Pk Richardson: 0.75 LVOT Mn Richardson: 0.49 LVOT VTI: 0.16 LVOT Pk Grad: 2.00 LVOT Mn Grad: 1.00 LVOT Diam: 2.30 LVOT Area: 4.15 Diastolic Function MV Pk E: 1.20 E'Medial: 6.20 E/E' Med: 19.40 E' Laterial: 14.10 E/E' Lat: 8.50 Tricuspid Valve TR Pk Richardson: 2.21 TR Pk Grad: 20.00 RA Press: 8.00 RVSP: 28.00 Great Vessels Aorta Ao Root-2D: 3.60 2.0-3.7 cm Ao Asc: 3.30 2.1-3.4 cm Pulmonary Valve PV Pk Richardson: 0.92 Peak PV Grad: 3.00 Updated in Other Vendor System with Status of Final Chris Saxena MD electronically signed on 07/25/2021 12:19:35 PM with status of Final
[2021-07-26] VITALS (14 sets, daily range): BP systolic 83–110; BP diastolic 51–70; PULSE 71–140; RESP 16–18; TEMP 36.6–37.2; O2SAT 91–98; BMI 32.1
[2021-07-26] MEDS: Furosemide 40 MG/4 ML VIAL IVPUSH (06:14)
[2021-07-26] MEDS: 0.9 % Sodium Chloride Flush 3 ML SYRINGE IVFLUSH ×2 (09:08→14:46)
[2021-07-26] MEDS: Apixaban 5 MG TABLET PO ×2 (09:08→19:37)
[2021-07-26] MEDS: Cholecalciferol (Vitamin D3) 25 MCG TABLET 125 MCG PO ×2 (09:08→19:37)
[2021-07-26] MEDS: Folic Acid 1 MG TABLET PO (09:11)
[2021-07-26] MEDS: Multivitamin TABLET 1 TAB PO (09:20)
--- NOTE | 2021-07-26 10:00 | PM.PNCARD ---
Subjective Subjective Date of Service: 07/26/21 Principal diagnosis: Congestive heart failure, atrial fibrillation Interval history: Patient says today she is not feeling as well. Feeling more tired and short of breath. Noted to be in atrial fibrillation with rapid ventricular response this morning while doing minimal activity. Denies palpitations, lightheadedness. Blood pressure is on the lower side. Review of Systems Constitutional: Reports no additional constitutional complaints Cardiovascular: Denies chest pain, Reports rapid heart rate, Denies lightheadedness, Denies palpitations, Reports dyspnea and Reports dyspnea on exertion Respiratory: Reports no additional respiratory complaints, Reports dyspnea and Reports dyspnea on exertion Gastrointestinal: Reports no additional gastrointestinal complaints Genitourinary: Reports no additional female genitourinary complaints Skin/Breast: Reports system reviewed and no additional complaints, except as docu Reports system reviewed and no additional complaints, except as documented Psychiatric: Reports no additional psychiatric complaints Endocrine: Reports no additional endocrine complaints and Denies palpitations Hematologic/Lymphatic: Reports no additional hematologic/lymphatic complaints Allergic/Immunologic: Reports no additional allergic/immunologic complaints Physical Exam Vital Signs: Last Vital Signs Temp 98.8 F 07/26/21 07:50 Pulse 98 07/26/21 07:50 Resp 18 07/26/21 07:50 BP 94/56 L 07/26/21 09:53 Pulse Ox 94 07/26/21 07:50 Body Mass Index 32.1 Const General: cooperative, comfortable, in distress mild and respiratory and anxious Nutritional Appearance: overweight Orientation/consciousness: patient oriented x3 Neck Neck: Yes trachea midline, Yes supple and Yes JVD Resp Effort & Inspection: normal respiratory effort Auscultation: rales and diminished lung sounds Cardio Jugular venous distension: JVD Rate: tachycardic Rhythm: abnormal rhythm irregularly irregular Heart sounds: S1 normal heart sound present, S2 normal heart sound present, no click and no gallops GI Auscultation: normal bowel sounds Skin General skin exam: no rashes or lesions noted Neuro General: patient oriented x3 and no focal motor deficits Extrem General: Yes no clubbing, cyanosis or edema Results Labs and Meds Result diagrams: 07/25/21 06:37 07/25/21 06:37 Progress Note: A&P Assessment and plan (1) CHF exacerbation: Status: Acute Assessment and Plan: Patient with persistent significant symptoms and heart failure. Responding therapy with lead to IV Lasix. Will switch to Lasix drip at 10 mg an hour. Better rate control, see below. Continue carvedilol therapy. Given her low blood pressure will hold her spironolactone and valsartan today. Will definitely benefit from rhythm control and attempt at synchronized cardioversion, see below. Strict intake and output chart needs to be pursued. Continue oxygen replacement therapy. (2) Atrial fibrillation with RVR: Status: Acute Assessment and Plan: Atrial fibrillation rapid ventricular response, difficult control. Continue carvedilol therapy. Will add digoxin load for rate control 0.25 mg x 3 doses every 6 hours. Adequate CHF management of CHF is better controlled by tomorrow will perform JEREMI guided cardioversion. Discussed with the patient the risks, benefits, alternatives 2nd opinion procedure. She understands and agrees. Will follow with you Fall Risk Details Current Medications: Current Medications Acetaminophen (Acetaminophen 325 Mg Tablet) 650 mg PO Q6H PRN PRN Reason: Pain, Mild (Pain Scale 1-3) Apixaban (Apixaban 5 Mg Tablet) 5 mg PO BID [facility] Last Admin: 07/26/21 09:08 Dose: 5 mg Documented by: Atorvastatin Calcium (Atorvastatin Calcium 10 Mg Tablet) 10 mg PO BEDTIME [facility] Last Admin: 07/25/21 20:22 Dose: 10 mg Documented by: Carvedilol (Carvedilol 25 Mg Tablet) 25 mg PO BID [facility]; Protocol Last Admin: 07/26/21 09:19 Dose: Not Given Documented by: Docusate Sodium (Docusate Sodium 100 Mg Capsule) 100 mg PO DAILY PRN PRN Reason: Constipation Folic Acid (Folic Acid 1 Mg Tablet) [facility] Last Admin: 07/26/21 09:11 Dose: 1 mg Documented by: Furosemide (Furosemide 40 Mg/4 Ml Vial) 40 mg IVPUSH Q12H [facility]; Protocol Last Admin: 07/26/21 06:14 Dose: 40 mg Documented by: Methotrexate (Methotrexate Sodium 2.5 Mg Tablet) 12.5 mg PO We@0900 [facility] Last Admin: 07/25/21 08:52 Dose: 12.5 mg Documented by: Metoprolol Tartrate (Metoprolol Tartrate 5 Mg/5 Ml Vial) 2.5 mg IVPUSH Q6H PRN PRN Reason: HR>110 Multivitamins/Vitamin C (Multivitamin Tablet) 1 tab PO DAILY [facility] Last Admin: 07/26/21 09:20 Dose: 1 tab Documented by: Ondansetron HCl (Ondansetron Hcl 4 Mg/2 Ml Vial) 4 mg IVPUSH Q8H PRN PRN Reason: Nausea and Vomiting Pharmacy Consult (Consult Rx Perform Med Rec) 1 each MISCELLANE ONCE PRN PRN Reason: Consult order Sodium Chloride (0.9 % Sodium Chloride Flush 3 Ml Syringe) 3 ml IVFLUSH QSHIFT [facility] Last Admin: 07/26/21 09:08 Dose: 3 ml Documented by: Spironolactone (Spironolactone 25 Mg Tablet) 12.5 mg PO DAILY [facility]; Protocol Last Admin: 07/26/21 09:20 Dose: Not Given Documented by: Valsartan (Valsartan 40 Mg Tablet) 20 mg PO BID [facility]; Protocol Last Admin: 07/26/21 09:21 Dose: Not Given Documented by: Vitamin D (Cholecalciferol (Vitamin D3) 25 Mcg Tablet) 125 mcg PO BID [facility] Last Admin: 07/26/21 09:08 Dose: 125 mcg Documented by: Time Spent With Patient Time: Total time spent is greater than 50% in coordination of care (as documented) at patient's floor/unit and/or counseling patient: Time with patient: 25 - 35 minutes Progress Note: Quality Stroke Does the patient have a stroke diagnosis?: No Procedures Date of Service Date of Service: 07/26/21
--- NOTE | 2021-07-26 10:47 | P.PNIM_ITS ---
Subjective Subjective Date of Service: 07/26/21 Interval History: f/u on afib, heart failure .. still sob, feels tired, BP was in 80s and improved shortly thereafter, remains in RVR, hold divovan and aldactone Review of Systems no fever sob Physical Exam Vital Signs: Vital Signs: Last Vital Signs Temp 98.8 F 07/26/21 07:50 Pulse 98 07/26/21 07:50 Resp 18 07/26/21 07:50 BP 94/56 L 07/26/21 09:53 Pulse Ox 94 07/26/21 07:50 Body Mass Index 32.1 Const: Other: General: AO X 3, no acute distress Resp: rales at bases CVS: iregular, tachy GI: +BS, NT, no distention Skin: No rash Neuro: motor grossly intact Psych: appropriate affect Objective Data Active Medications Acetaminophen (Acetaminophen 325 Mg Tablet) 650 mg PO Q6H PRN PRN Reason: Pain, Mild (Pain Scale 1-3) Apixaban (Apixaban 5 Mg Tablet) 5 mg PO BID [facility] Last Admin: 07/26/21 09:08 Dose: 5 mg Documented by: RODO Atorvastatin Calcium (Atorvastatin Calcium 10 Mg Tablet) 10 mg PO BEDTIME [facility] Last Admin: 07/25/21 20:22 Dose: 10 mg Documented by: MARTHA Carvedilol (Carvedilol 25 Mg Tablet) 25 mg PO BID [facility]; Protocol Last Admin: 07/26/21 09:19 Dose: Not Given Documented by: RODO Non-Admin Reason: LOW BP Docusate Sodium (Docusate Sodium 100 Mg Capsule) 100 mg PO DAILY PRN PRN Reason: Constipation Folic Acid (Folic Acid 1 Mg Tablet) 1 mg PO SUMOTUTHFRSA [facility] Last Admin: 07/26/21 09:11 Dose: 1 mg Documented by: RODO Furosemide 200 mg/ Sodium (Chloride) 100 mls @ 5 mls/hr IVCONT .Q20H [facility] Methotrexate (Methotrexate Sodium 2.5 Mg Tablet) 12.5 mg PO We@0900 [facility] Last Admin: 07/25/21 08:52 Dose: 12.5 mg Documented by: RODO Metoprolol Tartrate (Metoprolol Tartrate 5 Mg/5 Ml Vial) 2.5 mg IVPUSH Q6H PRN PRN Reason: HR>110 Multivitamins/Vitamin C (Multivitamin Tablet) 1 tab PO DAILY [facility] Last Admin: 07/26/21 09:20 Dose: 1 tab Documented by: RODO Ondansetron HCl (Ondansetron Hcl 4 Mg/2 Ml Vial) 4 mg IVPUSH Q8H PRN PRN Reason: Nausea and Vomiting Pharmacy Consult (Consult Rx Perform Med Rec) 1 each MISCELLANE ONCE PRN PRN Reason: Consult order Sodium Chloride (0.9 % Sodium Chloride Flush 3 Ml Syringe) 3 ml IVFLUSH QSHIFT [facility] Last Admin: 07/26/21 09:08 Dose: 3 ml Documented by: RODO Spironolactone (Spironolactone 25 Mg Tablet) 12.5 mg PO DAILY [facility]; Protocol Last Admin: 07/26/21 09:20 Dose: Not Given Documented by: RODO Non-Admin Reason: LOW BP Valsartan (Valsartan 40 Mg Tablet) 20 mg PO BID [facility]; Protocol Last Admin: 07/26/21 09:21 Dose: Not Given Documented by: RODO Non-Admin Reason: LOW BP Vitamin D (Cholecalciferol (Vitamin D3) 25 Mcg Tablet) 125 mcg PO BID [facility] Last Admin: 07/26/21 09:08 Dose: 125 mcg Documented by: RODO Labs CBC & Chem 7: 07/25/21 06:37 07/25/21 06:37 Assessment and Plan (1) CHF exacerbation: Status: Acute (2) Atrial fibrillation with RVR: Status: Acute Assessment and Plan: ?a 66-year-old female with past medical history of congestive heart failure as well as AFib who presents to the hospital with shortness of breath found to have CHF exacerbation and AFib with RVR # Dyspena d/t heart failure, better but not optimal # Acute HFrEF---LVEF of 20-25% ? ? +posistive fluid balance ? -remains decompensated d/t AFIB with RVR -changing to IV Lasix drip toay 07/26, -continue coreg, holding aldactone and diovan b/c of low BP -check BNP, BMP tomorrow # AFib with RVR--persistent - ChadSVASc score of 3 -continue coreg -continue eliquis -Cardiology is planning cardioversion once heart failure improves # chest pain with mild elevated troponin--no evidence of acute ischemica, likely demand myocardial injury from afib with RVR # rheumatoid arthritis - continue methotrexate # HLD #CAD/ischemic cardiomyopathy has AICD, statin, BB, no ASA d/t eliquis - continue statin DVT p, eliquis Quality Stroke Does the patient have a stroke diagnosis?: No VTE Prior VTE?: No VTE Risk Level:: Medical - moderate - high VTE Device Contraindication: Treatment Not Indicated VTE Drug Contraindication: N/A - Med Ordered
[2021-07-26] MEDS: Furosemide 200 MG in 0.9 % Sodium Chloride 80 ML IVCONT (11:56)
--- NOTE | 2021-07-26 12:45 | MHC.CM.PN ---
Per ROUNDS discussion, a Lasix Drip will be started today, and Patient is not yet medically cleared for dc. Home is the goal for dc and CM will follow for possible need to adjust the dc plan.
[2021-07-26] MEDS: Metoprolol Tartrate 5 MG/5 ML VIAL 2.5 MG IVPUSH (13:02)
[2021-07-26] MEDS: Digoxin 0.5 MG/2 ML AMPUL 0.25 MG IVPUSH ×2 (14:46→19:38)
[2021-07-26] MEDS: carvediloL 25 MG TABLET PO (17:32)
--- NOTE | 2021-07-26 18:17 | PC.NURSE ---
Patient's BP medications held this AM per hospitalist d/t BP in the 80s systolically. Patient's HR began to increase to 120s/130s, occasionally increasing to 160s. Patient reports feeling slight fluttering in her chest, otherwise stable. Hospitalist notified, PRN IVP metoprolol given with minimal effect. Digoxin ordered and administered with minimal effect. PM dose of carveidolol given early per inventory planner with minimal effect. 2nd dose of digoxin due to be given around 1999. Patient also scheduled for JEREMI cardioversion tomorrow. Will pass to oncoming RN.
[2021-07-26] MEDS: Atorvastatin Calcium 10 MG TABLET PO (19:37)
--- NOTE | 2021-07-26 21:09 | PC.NURSE ---
Pt's HR 120's(afib). Gave HS medications (including cardiac meds) early with good effect. Rate now 90's. Will continue to monitor.
[2021-07-27] VITALS (12 sets, daily range): BP systolic 83–126; BP diastolic 33–74; PULSE 78–94; RESP 14–20; TEMP 36.4–36.7; O2SAT 92–99; BMI 26.7
[2021-07-27] MEDS: Furosemide 200 MG in 0.9 % Sodium Chloride 80 ML IVCONT ×2 (03:16→23:49)
--- NOTE | 2021-07-27 05:30 | PC.NURSE ---
Pt states she slept comfortably. VSS, BP remains soft. Telemetry Afib with BBB-rate controlled. Lasix drip infusing as ordered. No c/o pain/sob. Plan: NPO for JEREMI cardioversion. Will continue to monitor.
[2021-07-27 06:52] LABS: Anion Gap 14 (12-20); Blood Urea Nitrogen 17 mg/dL (9-16); Carbon Dioxide 32 mmol/L (22-29); Chloride 97 mmol/L (96-108); Creatinine Clr Calc Pharmacy 49.8; Estimated Glomerular Filt Rate 51; Glucose Random 104 mg/dL (60-115); Potassium 3.4 mmol/L (3.3-5.1); Sodium 140 mmol/L (135-145)
[2021-07-27] MEDS: Multivitamin TABLET 1 TAB PO (08:24)
[2021-07-27] MEDS: Cholecalciferol (Vitamin D3) 25 MCG TABLET 125 MCG PO ×2 (08:24→21:43)
[2021-07-27] MEDS: carvediloL 25 MG TABLET PO ×2 (08:24→21:44)
[2021-07-27] MEDS: Apixaban 5 MG TABLET PO ×2 (08:25→21:44)
[2021-07-27] MEDS: Folic Acid 1 MG TABLET PO (08:34)
--- NOTE | 2021-07-27 10:02 | P.PNIM_ITS ---
Subjective Subjective Date of Service: 07/27/21 Interval History: f/u on afib, heart failure .. she is feeling much better today, less sob, HR is better controlled, still in AFib, for cardioversion at 11.30 Review of Systems no fever sob Physical Exam Vital Signs: Vital Signs: Last Vital Signs Temp 97.6 F 07/27/21 07:37 Pulse 86 07/27/21 08:24 Resp 18 07/27/21 07:37 BP 99/54 L 07/27/21 08:24 Pulse Ox 94 07/27/21 07:37 Body Mass Index 26.7 Const: Other: General: AO X 3, no acute distress Resp: rales at bases CVS: iregular, tachy GI: +BS, NT, no distention Skin: No rash Neuro: motor grossly intact Psych: appropriate affect Objective Data Active Medications Acetaminophen (Acetaminophen 325 Mg Tablet) 650 mg PO Q6H PRN PRN Reason: Pain, Mild (Pain Scale 1-3) Apixaban (Apixaban 5 Mg Tablet) 5 mg PO BID [facility] Last Admin: 07/27/21 08:25 Dose: 5 mg Documented by: OC Atorvastatin Calcium (Atorvastatin Calcium 10 Mg Tablet) 10 mg PO BEDTIME [facility] Last Admin: 07/26/21 19:37 Dose: 10 mg Documented by: KASEY Carvedilol (Carvedilol 25 Mg Tablet) 25 mg PO BID [facility]; Protocol Last Admin: 07/27/21 08:24 Dose: 25 mg Documented by: OC Docusate Sodium (Docusate Sodium 100 Mg Capsule) 100 mg PO DAILY PRN PRN Reason: Constipation Folic Acid (Folic Acid 1 Mg Tablet) 1 mg PO SUMOTUTHFRSA [facility] Last Admin: 07/27/21 08:34 Dose: 1 mg Documented by: OC Furosemide 200 mg/ Sodium (Chloride) 100 mls @ 5 mls/hr IVCONT .Q20H [facility] Last Admin: 07/27/21 03:16 Dose: 10 mg/hr, 5 mls/hr Documented by: KASEY Methotrexate (Methotrexate Sodium 2.5 Mg Tablet) 12.5 mg PO We@0900 [facility] Last Admin: 07/25/21 08:52 Dose: 12.5 mg Documented by: RODO Metoprolol Tartrate (Metoprolol Tartrate 5 Mg/5 Ml Vial) 2.5 mg IVPUSH Q6H PRN PRN Reason: HR>110 Last Admin: 07/26/21 13:02 Dose: 2.5 mg Documented by: RODO Multivitamins/Vitamin C (Multivitamin Tablet) 1 tab PO DAILY [facility] Last Admin: 07/27/21 08:24 Dose: 1 tab Documented by: OC Ondansetron HCl (Ondansetron Hcl 4 Mg/2 Ml Vial) 4 mg IVPUSH Q8H PRN PRN Reason: Nausea and Vomiting Pharmacy Consult (Consult Rx Perform Med Rec) 1 each MISCELLANE ONCE PRN PRN Reason: Consult order Sodium Chloride (0.9 % Sodium Chloride Flush 3 Ml Syringe) 3 ml IVFLUSH QSHIFT [facility] Last Admin: 07/27/21 08:28 Dose: Not Given Documented by: OC Non-Admin Reason: IV Running Spironolactone (Spironolactone 25 Mg Tablet) 12.5 mg PO DAILY [facility]; Protocol Last Admin: 07/26/21 09:20 Dose: Not Given Documented by: RODO Non-Admin Reason: LOW BP Valsartan (Valsartan 40 Mg Tablet) 20 mg PO BID [facility]; Protocol Last Admin: 07/26/21 09:21 Dose: Not Given Documented by: RODO Non-George Reason: LOW BP Vitamin D (Cholecalciferol (Vitamin D3) 25 Mcg Tablet) 125 mcg PO BID [facility] Last Admin: 07/27/21 08:24 Dose: 125 mcg Documented by: OC Labs CBC & Chem 7: 07/25/21 06:37 07/27/21 05:44 Labs: Laboratory Results - last 24 hr 07/27/21 05:44 Anion Gap 14 Estim Creat Clear Calc 49.8 Estimated GFR 51 Random Glucose 104 Calcium 9.0 Assessment and Plan (1) CHF exacerbation: Status: Acute (2) Atrial fibrillation with RVR: Status: Acute Assessment and Plan: ?a 66-year-old female with past medical history of congestive heart failure as well as AFib who presents to the hospital with shortness of breath found to have CHF exacerbation and AFib with RVR # Dyspena d/t heart failure, better but not optimal # Acute HFrEF---LVEF of 20-25% ? ? +still posistive fluid balance ? -remains decompensated d/t AFIB with RVR -continue IV Lasix drip -continue coreg, holding aldactone and diovan b/c of low BP -check BNP, BMP tomorrow # AFib with RVR--persistent - ChadSVASc score of 3 -continue coreg -continue eliquis -Cardiology is planning cardioversion today # chest pain with mild elevated troponin--no evidence of acute ischemica, likely demand myocardial injury from afib with RVR # rheumatoid arthritis - continue methotrexate # HLD #CAD/ischemic cardiomyopathy has AICD, statin, BB, no ASA d/t eliquis - continue statin DVT p, eliquis Quality Stroke Does the patient have a stroke diagnosis?: No VTE Prior VTE?: No VTE Risk Level:: Medical - moderate - high VTE Device Contraindication: Treatment Not Indicated VTE Drug Contraindication: N/A - Med Ordered
--- NOTE | 2021-07-27 11:00 | CA_ITS ---
Transesophageal Echocardiogram Patient (Last, First, Middle): Naz Barrios, Gender: Female Date of : 1955 Age: 66 Procedure Date: 07/27/2021 Procedure Type: Transesophageal Echocardiogram Location: [facility] [place] Height: 170.18 cm Weight: kg Preservative Filler Machine Operator: OLENA Referring MD: Chris Saxena MD Business Case Analyst: Chris Saxena MD Symptoms: Pre cardioversion for AFib Conclusion: ??? 1. Severe LV systolic dysfunction with LVEF of around 20% 2. No intracardiac masses, thrombi or vegetations 3. Severely dilated left atrium 4. Mild aortic and mitral regurgitation 5. [id number] tricuspid regurgitation 6. Small amount of pericardial effusion on the left atrium and the right atrium and trivial around the left ventricle 7. Normal ascending aortic size Findings Procedure Information Consent was obtained prior to the procedure. Pre JEREMI oral cavity was checked and revealed no overcrowding. The adult 3D probe was passed with no difficulty. Left Ventricle Mildly increased left ventricular cavity size. There is normal left ventricular wall thickness. The left ventricular systolic function is severely decreased. The visually estimated ejection fraction is between 15 20%. There is severe global hypokinesis. Diastolic function is indeterminate on the basis of available data. Right Ventricle Mildly increased right ventricular cavity size. There is borderline right ventricular systolic function. There is an ICD wire seen in the right ventricle. Atria The left atrium is severely dilated. There is no evidence of interatrial shunt. There is no evidence of a patent foramen ovale. There is no evidence of thrombus or mass in the left atrium. Left atrial appendage was identified in multiple views and including explain. Due to small pericardial effusion the transverse sinus as well as around the left atrial appendage, there was a question about left atrial appendage thrombus. We then used definity contrast to identify for any filling defect. Definity contrast completely OPC for I had the left atrial appendage and there was no filling defects consistent with thrombus. The left atrial appendage velocity is significantly reduced. The smoke formation seen with the left atrium as well as the left atrial appendage. The left upper, right upper and right lower pulmonary veins were draining normally into the left atrium. The right atrium is mildly dilated. A pacemaker wire is identified in the right atrium. There is no evidence of thrombus or mass in the right atrium. The IVC and SVC drain normally into the right atrium. Aortic Valve There is mild calcification of the aortic valve. There is no aortic valve stenosis. There is no evidence of a mass on the aortic valve. There is mild aortic valve regurgitation. Mitral Valve There is mild anterior and posterior mitral leaflet thickening. There is no mitral valve prolapse. There is mild mitral valve regurgitation. There is no mitral valve stenosis. There is no mass noted on the mitral valve. Pulmonic Valve The pulmonic valve is likely normal. There is trace pulmonic valve regurgitation. Tricuspid Valve Normal tricuspid valve structure. There is mild to moderate tricuspid valve regurgitation. Great Vessels All visible segments of the aorta are normal in size. The pulmonary artery was not well visualized. Pericardium/Pleural There is a small loculated pericardial effusion overlying the left atrium and right atrium. Updated by Chris Saxena on 03:43 PM with Status of Final Chris Saxena MD electronically signed on 07/27/2021 3:43:11 PM with status of Final
--- NOTE | 2021-07-27 11:34 | MHC.CM.PN ---
Per ROUNDS discussion, Patient is not yet medically clear for dc (Cardioversion today). Home is the goal for dc and CM will follow for possible need to adjust the dc plan.
[2021-07-27] MEDS: Lactated Ringers 1,000 ML 50 ML IVCONT (12:30)
--- NOTE | 2021-07-27 12:42 | P.CONAN_ITS ---
Documented by User: Amarilis Siddiqui MD 07/27/21 12:43 HPI - Anesthesia Eval Consult details Narrative: 66 yo female patient for JEREMI, Cardioversion PMF Active Problems Active Problems: All Active Problems (Updated 07/25/21 @ 11:07 by Chris Saxena MD) CAD (coronary artery disease) (Acute) Nonischemic cardiomyopathy (Acute) Biventricular ICD (implantable cardioverter-defibrillator) in place (Acute) Elevated troponin (Acute) Elevated troponin (Acute) Chest pain (Acute) CHF exacerbation (Acute) Congestive heart failure (Acute) Atrial fibrillation with RVR (Acute) Past Medical History Medical History Atrial fibrillation Biventricular ICD (implantable cardioverter-defibrillator) in place Blind left eye CAD (coronary artery disease) CHF (congestive heart failure) H/O cardiac pacemaker Nonischemic cardiomyopathy Rheumatoid arthritis Surgical History Surgical History No pertinent past surgical history Social History Social History Household Members: Significant Other Housing: House Do you presently have visiting nurse or other home services: No Patient Tobacco Use Status: Former Tobacco user Quit Date: 2010 Tobacco use type: Cigarette Cigarette Packs Per Day: 1 Cigarettes Per Day: 20.0 Smoked in Last 30 Days: No Second Hand Smoke Exposure: No Use of substances other than those prescribed or required for medical reasons: No Currently Displaying Signs/Symptoms of Drug Intoxication Withdrawal: No Have you been hit, kicked, punched, or otherwise hurt by someone within the past year? If so, by whom?: No Do you feel safe in your current relationship?: Yes Is there a partner from a previous relationship who is making you feel unsafe now?: No Are you made to feel afraid or neglected: No Are you DNR?: No Advance Directives: No Advance Directives Information Provided: No Do you have thoughts of harming others: None Do you have a plan to hurt others: No Plan Recently lost weight without trying: No Nutrition Risks: No Nutritional Risk Patient : No : No Poor oral hygiene: No service: No Current occupational status: retired Meds Allergies Allergy/AdvReac Type Severity Reaction Status Date / Time erythromycin base Allergy Unknown NAUSEA Verified 07/24/21 16:52 [ERYTHROMYCIN BASE] indomethacin Allergy Unknown STOMACH Verified 07/24/21 16:52 [Indomethacin] UPSET & HEADACHE Sulfa (Sulfonamide Allergy Unknown Hives Verified 07/24/21 16:52 Antibiotics) sulfamethoxazole Allergy Unknown HIVES Verified 07/24/21 16:52 [From BACTRIM] trimethoprim [From Allergy Unknown HIVES Verified 07/24/21 16:52 BACTRIM] azithromycin [From AdvReac Unknown NAUSEA & Verified 07/24/21 16:52 Zithromax] VOMITTING Pt states no known food Allergy Unknown Hives Uncoded 07/24/21 16:52 allerg Active Medications: Current Medications Acetaminophen (Acetaminophen 325 Mg Tablet) 650 mg PO Q6H PRN PRN Reason: Pain, Mild (Pain Scale 1-3) Apixaban (Apixaban 5 Mg Tablet) 5 mg PO BID [facility] Last Admin: 07/27/21 08:25 Dose: 5 mg Documented by: Atorvastatin Calcium (Atorvastatin Calcium 10 Mg Tablet) 10 mg PO BEDTIME [facility] Last Admin: 07/26/21 19:37 Dose: 10 mg Documented by: Carvedilol (Carvedilol 25 Mg Tablet) 25 mg PO BID [facility]; Protocol Last Admin: 07/27/21 08:24 Dose: 25 mg Documented by: Docusate Sodium (Docusate Sodium 100 Mg Capsule) 100 mg PO DAILY PRN PRN Reason: Constipation Folic Acid (Folic Acid 1 Mg Tablet) 1 [facility] Last Admin: 07/27/21 08:34 Dose: 1 mg Documented by: Furosemide 200 mg/ Sodium (Chloride) 100 mls @ 5 mls/hr IVCONT .Q20H [facility] Last Admin: 07/27/21 03:16 Dose: 10 mg/hr, 5 mls/hr Documented by: Lactated Ringer's (Lr) 1,000 mls @ 50 mls/hr IVCONT .Q20H [facility] Methotrexate (Methotrexate Sodium 2.5 Mg Tablet) 12.5 mg PO We@0900 [facility] Last Admin: 07/25/21 08:52 Dose: 12.5 mg Documented by: Metoprolol Tartrate (Metoprolol Tartrate 5 Mg/5 Ml Vial) 2.5 mg IVPUSH Q6H PRN PRN Reason: HR>110 Last Admin: 07/26/21 13:02 Dose: 2.5 mg Documented by: Multivitamins/Vitamin C (Multivitamin Tablet) 1 tab PO DAILY [facility] Last Admin: 07/27/21 08:24 Dose: 1 tab Documented by: Ondansetron HCl (Ondansetron Hcl 4 Mg/2 Ml Vial) 4 mg IVPUSH Q8H PRN PRN Reason: Nausea and Vomiting Pharmacy Consult (Consult Rx Perform Med Rec) 1 each MISCELLANE ONCE PRN PRN Reason: Consult order Sodium Chloride (0.9 % Sodium Chloride Flush 3 Ml Syringe) 3 ml IVFLUSH QSHIFT [facility] Last Admin: 07/27/21 11:15 Dose: Not Given Documented by: Spironolactone (Spironolactone 25 Mg Tablet) 12.5 mg PO DAILY [facility]; Protocol Last Admin: 07/26/21 09:20 Dose: Not Given Documented by: Valsartan (Valsartan 40 Mg Tablet) 20 mg PO BID [facility]; Protocol Last Admin: 07/26/21 09:21 Dose: Not Given Documented by: Vitamin D (Cholecalciferol (Vitamin D3) 25 Mcg Tablet) 125 mcg PO BID [facility] Last Admin: 07/27/21 08:24 Dose: 125 mcg Documented by: Home Medications Medication Instructions Recorded Confirmed Last Taken Type aspirin 81 mg 81 mg PO DAILY 07/24/21 07/24/21 07/24/21 History chewable tablet biotin 125 mg PO DAILY 07/24/21 07/24/21 07/24/21 History calcium carbonate 500 mg PO DAILY 07/24/21 07/24/21 07/24/21 History 500 mg calcium (1,250 mg) tablet (Calcium 500) carvedilol 25 mg 25 mg PO BID 07/24/21 07/24/21 07/24/21 History tablet cholecalciferol 125 mcg PO BID 07/24/21 07/24/21 07/24/21 History (vitamin D3) 125 mcg (5,000 unit) tablet (Vitamin D3) folic acid 1 mg 1 mg PO 07/24/21 07/24/21 07/24/21 History tablet SUMOTUTHFRSA lisinopril 2.5 mg 2.5 mg PO 07/24/21 07/24/21 07/23/21 History tablet BEDTIME methotrexate 5 tab PO WE 07/24/21 07/24/21 07/18/21 History sodium 2.5 mg tablet multivitamin 1 tab PO DAILY 07/24/21 07/24/21 07/24/21 History simvastatin 20 mg 20 mg PO BEDTIME 07/24/21 07/24/21 07/23/21 History tablet Exam Exam Date and Time: July 27, 2021 1242 Height,Weight and Vital Signs: Height 5 ft 4 in Weight 70.7 kg Last Vital Signs Temp 98.0 F 07/27/21 12:12 Pulse 94 07/27/21 12:12 Resp 16 07/27/21 12:12 BP 99/74 07/27/21 12:12 Pulse Ox 95 07/27/21 12:12 Pertinent Lab Results Pertinent Lab Results: Laboratory Tests 07/24/21 07/24/21 07/24/21 17:55 17:58 17:58 WBC 5.4 RBC 3.51 L Hgb 10.9 L Hct 34.1 L MCV 97.2 MCH 31.1 MCHC 32.0 RDW 14.4 Plt Count 214 MPV 10.5 Immature Gran % (Auto) 0.4 Neut % (Auto) 70.9 Lymph % (Auto) 17.5 L [place] % (Auto) 8.4 Eos % (Auto) 2.2 Baso % (Auto) 0.6 Lymph # (Auto) 0.9 L [place] # (Auto) 0.5 Eos # (Auto) 0.1 Baso # (Auto) 0.0 Abs Immat Gran (auto) 0.02 Absolute Neuts (auto) 3.82 Absolute Nucleated RBC 0.000 Nucleated RBC % (auto) 0.0 PT INR APTT Sodium 138 Potassium 4.7 Chloride 109 H Carbon Dioxide 22 Anion Gap 12 BUN 17 H Creatinine 1.02 Estim Creat Clear Calc 56.0 Estimated GFR 54 Random Glucose 113 Calcium 8.8 Magnesium 1.9 Total Bilirubin 0.9 Direct Bilirubin 0.4 AST 19 ALT 17 Alkaline Phosphatase 83 Troponin I High Sens B-Natriuretic Peptide Total Protein 6.0 L Albumin 3.6 COVID-19 ([facility]) Negative COVID-19 Clin Com See Note 07/24/21 07/24/21 07/24/21 17:58 18:22 20:21 WBC RBC Hgb Hct MCV MCH MCHC RDW Plt Count MPV Immature Gran % (Auto) Neut % (Auto) Lymph % (Auto) [place] % (Auto) Eos % (Auto) Baso % (Auto) Lymph # (Auto) [place] # (Auto) Eos # (Auto) Baso # (Auto) Abs Immat Gran (auto) Absolute Neuts (auto) Absolute Nucleated RBC Nucleated RBC % (auto) PT 15.9 H INR 1.4 H APTT 31.1 Sodium Potassium Chloride Carbon Dioxide Anion Gap BUN Creatinine Estim Creat Clear Calc Estimated GFR Random Glucose Calcium Magnesium Total Bilirubin Direct Bilirubin AST ALT Alkaline Phosphatase Troponin I High Sens 18.5 H* 20.2 H* B-Natriuretic Peptide 603 H Total Protein Albumin COVID-19 ([facility]) [facility] 07/25/21 07/25/21 07/25/21 06:37 06:37 06:37 WBC 4.2 L RBC 3.42 L Hgb 10.4 L Hct 32.1 L MCV 93.9 MCH 30.4 MCHC 32.4 RDW 14.0 Plt Count 191 MPV 10.3 Immature Gran % (Auto) 0.2 Neut % (Auto) 54.9 Lymph % (Auto) 26.4 [place] % (Auto) 10.2 Eos % (Auto) 8.1 H Baso % (Auto) 0.2 Lymph # (Auto) 1.1 L [place] # (Auto) 0.4 Eos # (Auto) 0.3 Baso # (Auto) 0.0 Abs Immat Gran (auto) 0.01 Absolute Neuts (auto) 2.31 Absolute Nucleated RBC 0.000 Nucleated RBC % (auto) 0.0 PT INR APTT Sodium 138 Potassium 4.3 Chloride 106 Carbon Dioxide 27 Anion Gap 9 L BUN 17 H Creatinine 0.92 Estim Creat Clear Calc 63.7 Estimated GFR > 60 Random Glucose 99 Calcium 8.5 Magnesium Total Bilirubin Direct Bilirubin AST ALT Alkaline Phosphatase Troponin I High Sens 19.5 H* B-Natriuretic Peptide Total Protein Albumin COVID-19 ([facility]) [facility] 07/27/21 05:44 WBC RBC Hgb Hct MCV MCH MCHC RDW Plt Count MPV Immature Gran % (Auto) Neut % (Auto) Lymph % (Auto) [place] % (Auto) Eos % (Auto) Baso % (Auto) Lymph # (Auto) [place] # (Auto) Eos # (Auto) Baso # (Auto) Abs Immat Gran (auto) Absolute Neuts (auto) Absolute Nucleated RBC Nucleated RBC % (auto) PT INR APTT Sodium 140 Potassium 3.4 D Chloride 97 Carbon Dioxide 32 H Anion Gap 14 BUN 17 H Creatinine 1.07 Estim Creat Clear Calc 49.8 Estimated GFR 51 Random Glucose 104 Calcium 9.0 Magnesium Total Bilirubin Direct Bilirubin AST ALT Alkaline Phosphatase Troponin I High Sens B-Natriuretic Peptide Total Protein Albumin COVID-19 ([facility]) COVID-19 Clin Com Documented by User: Ebony Keller MD 07/27/21 13:17 ON LICENSE OF [facility] Past Medical History Medical History Atrial fibrillation Biventricular ICD (implantable cardioverter-defibrillator) in place Blind left eye CAD (coronary artery disease) CHF (congestive heart failure) H/O cardiac pacemaker Nonischemic cardiomyopathy Rheumatoid arthritis Family History Family history of problems with anesthesia: No Surgical History Surgical History No pertinent past surgical history History of Problems with Anesthesia: No Social History Social History Household Members: Significant Other Housing: House Do you presently have visiting nurse or other home services: No Patient Tobacco Use Status: Former Tobacco user Quit Date: 2010 Tobacco use type: Cigarette Cigarette Packs Per Day: 1 Cigarettes Per Day: 20.0 Smoked in Last 30 Days: No Second Hand Smoke Exposure: No Use of substances other than those prescribed or required for medical reasons: No Currently Displaying Signs/Symptoms of Drug Intoxication Withdrawal: No Have you been hit, kicked, punched, or otherwise hurt by someone within the past year? If so, by whom?: No Do you feel safe in your current relationship?: Yes Is there a partner from a previous relationship who is making you feel unsafe now?: No Are you made to feel afraid or neglected: No Are you DNR?: No Advance Directives: No Advance Directives Information Provided: No Do you have thoughts of harming others: None Do you have a plan to hurt others: No Plan Recently lost weight without trying: No Nutrition Risks: No Nutritional Risk Patient : No : No Poor oral hygiene: No service: No Current occupational status: retired Meds Allergies Allergy/AdvReac Type Severity Reaction Status Date / Time erythromycin base Allergy Unknown NAUSEA Verified 07/24/21 16:52 [ERYTHROMYCIN BASE] indomethacin Allergy Unknown STOMACH Verified 07/24/21 16:52 [Indomethacin] UPSET & HEADACHE Sulfa (Sulfonamide Allergy Unknown Hives Verified 07/24/21 16:52 Antibiotics) sulfamethoxazole Allergy Unknown HIVES Verified 07/24/21 16:52 [From BACTRIM] trimethoprim [From Allergy Unknown HIVES Verified 07/24/21 16:52 BACTRIM] azithromycin [From AdvReac Unknown NAUSEA & Verified 07/24/21 16:52 Zithromax] VOMITTING Pt states no known food Allergy Unknown Hives Uncoded 07/24/21 16:52 allerg Home Medications Medication Instructions Recorded Confirmed Last Taken Type aspirin 81 mg 81 mg PO DAILY 07/24/21 07/24/21 07/24/21 History chewable tablet biotin 125 mg PO DAILY 07/24/21 07/24/21 07/24/21 History calcium carbonate 500 mg PO DAILY 07/24/21 07/24/21 07/24/21 History 500 mg calcium (1,250 mg) tablet (Calcium 500) carvedilol 25 mg 25 mg PO BID 07/24/21 07/24/21 07/24/21 History tablet cholecalciferol 125 mcg PO BID 07/24/21 07/24/21 07/24/21 History (vitamin D3) 125 mcg (5,000 unit) tablet (Vitamin D3) folic acid 1 mg 1 mg PO 07/24/21 07/24/21 07/24/21 History tablet SUMOTUTHFRSA lisinopril 2.5 mg 2.5 mg PO 07/24/21 07/24/21 07/23/21 History tablet BEDTIME methotrexate 5 tab PO WE 07/24/21 07/24/21 07/18/21 History sodium 2.5 mg tablet multivitamin 1 tab PO DAILY 07/24/21 07/24/21 07/24/21 History simvastatin 20 mg 20 mg PO BEDTIME 07/24/21 07/24/21 07/23/21 History tablet Exam Airway Mallampati Class: III TM Dist: >3cm Neck ROM: Full Heart: irreg Lungs: cta Assessment and Plan Assessment Anesthesia Assessment: Anesthesia Plan Discussed and Chart Reviewed Final Anesthetic Review Family History of Problems with Anesthesia: No History of Problems with Anesthesia: No NPO: Yes ASA Class: III Final Preanesthetic Review: No Changes in Pt Med Stat, Meds/Allgs Chart Reviewed and Consent Obtained/Reviewed Patient Risk: Intermediate Procedure Risk: Intermediate Anesthetic Plan Anesthetic Plan: MAC: Disposition: Standard PACU Documented by User: Genia Minor MD 07/28/21 11:53 ON LICENSE OF [facility] Past Medical History Medical History Atrial fibrillation Biventricular ICD (implantable cardioverter-defibrillator) in place Blind left eye CAD (coronary artery disease) CHF (congestive heart failure) H/O cardiac pacemaker Nonischemic cardiomyopathy Rheumatoid arthritis Functional capacity: independent ambulation Patient : No Surgical History Surgical History No pertinent past surgical history Social History Social History Household Members: Significant Other Housing: House Do you presently have visiting nurse or other home services: No Patient Tobacco Use Status: Former Tobacco user Quit Date: 2010 Tobacco use type: Cigarette Cigarette Packs Per Day: 1 Cigarettes Per Day: 20.0 Smoked in Last 30 Days: No Second Hand Smoke Exposure: No Use of substances other than those prescribed or required for medical reasons: No Currently Displaying Signs/Symptoms of Drug Intoxication Withdrawal: No Have you been hit, kicked, punched, or otherwise hurt by someone within the past year? If so, by whom?: No Do you feel safe in your current relationship?: Yes Is there a partner from a previous relationship who is making you feel unsafe now?: No Are you made to feel afraid or neglected: No Are you DNR?: No Advance Directives: No Advance Directives Information Provided: No Do you have thoughts of harming others: None Do you have a plan to hurt others: No Plan Recently lost weight without trying: No Nutrition Risks: No Nutritional Risk Patient : No : No Poor oral hygiene: No service: No Current occupational status: retired Meds Allergies Allergy/AdvReac Type Severity Reaction Status Date / Time erythromycin base Allergy Unknown NAUSEA Verified 07/24/21 16:52 [ERYTHROMYCIN BASE] indomethacin Allergy Unknown STOMACH Verified 07/24/21 16:52 [Indomethacin] UPSET & HEADACHE Sulfa (Sulfonamide Allergy Unknown Hives Verified 07/24/21 16:52 Antibiotics) sulfamethoxazole Allergy Unknown HIVES Verified 07/24/21 16:52 [From BACTRIM] trimethoprim [From Allergy Unknown HIVES Verified 07/24/21 16:52 BACTRIM] azithromycin [From AdvReac Unknown NAUSEA & Verified 07/24/21 16:52 Zithromax] VOMITTING Pt states no known food Allergy Unknown Hives Uncoded 07/24/21 16:52 allerg Home Medications Medication Instructions Recorded Confirmed Last Taken Type aspirin 81 mg 81 mg PO DAILY 07/24/21 07/24/21 07/24/21 History chewable tablet biotin 125 mg PO DAILY 07/24/21 07/24/21 07/24/21 History calcium carbonate 500 mg PO DAILY 07/24/21 07/24/21 07/24/21 History 500 mg calcium (1,250 mg) tablet (Calcium 500) carvedilol 25 mg 25 mg PO BID 07/24/21 07/24/21 07/24/21 History tablet cholecalciferol 125 mcg PO BID 07/24/21 07/24/21 07/24/21 History (vitamin D3) 125 mcg (5,000 unit) tablet (Vitamin D3) folic acid 1 mg 1 mg PO 07/24/21 07/24/21 07/24/21 History tablet SUMOTUTHFRSA lisinopril 2.5 mg 2.5 mg PO 07/24/21 07/24/21 07/23/21 History tablet BEDTIME methotrexate 5 tab PO WE 07/24/21 07/24/21 07/18/21 History sodium 2.5 mg tablet multivitamin 1 tab PO DAILY 07/24/21 07/24/21 07/24/21 History simvastatin 20 mg 20 mg PO BEDTIME 07/24/21 07/24/21 07/23/21 History tablet
--- NOTE | 2021-07-27 12:55 | P.PNCA_ITS ---
Subjective Subjective Date of Service: 07/27/21 Principal diagnosis: Congestive heart failure, atrial fibrillation Interval history: Patient feeling a lot better today. Has diuresed overnight. Again output charts are not adequately maintained. Heart rate is much better control today after getting her Coreg yesterday. Blood pressure is still in the 90s. No lightheadedness, syncope. Review of Systems Constitutional: Reports no additional constitutional complaints Cardiovascular: Reports no additional cardiovascular complaints Respiratory: Reports no additional respiratory complaints Gastrointestinal: Reports no additional gastrointestinal complaints Genitourinary: Reports no additional female genitourinary complaints Musculoskeletal: Reports no additional musculoskeletal complaints Skin/Breast: Reports system reviewed and no additional complaints, except as docu Reports system reviewed and no additional complaints, except as documented Psychiatric: Reports no additional psychiatric complaints Endocrine: Reports no additional endocrine complaints Physical Exam Vital Signs: Last Vital Signs Temp 98.0 F 07/27/21 12:12 Pulse 94 07/27/21 12:12 Resp 16 07/27/21 12:12 BP 99/74 07/27/21 12:12 Pulse Ox 95 07/27/21 12:12 Body Mass Index 26.7 Const General: cooperative, comfortable, no acute distress, alert and awake Nutritional Appearance: average body habitus Orientation/consciousness: patient oriented x3 Limitations: no limitations Neck Neck: Yes trachea midline, Yes supple and Yes no JVD Resp Effort & Inspection: normal respiratory effort Auscultation: clear to auscultation bilaterally Cardio Jugular venous distension: no JVD Rhythm: abnormal rhythm irregularly irregular Heart sounds: S1 normal heart sound present, S2 normal heart sound present, no click, no gallops and no murmurs GI Auscultation: normal bowel sounds Skin General skin exam: no rashes or lesions noted Neuro General: patient oriented x3 and no focal motor deficits Extrem General: Yes no clubbing, cyanosis or edema Results Labs and Meds Result diagrams: 07/25/21 06:37 07/27/21 05:44 Lab results: Laboratory Results - last 24 hr 07/27/21 05:44 Sodium 140 Potassium 3.4 D Chloride 97 Carbon Dioxide 32 H Anion Gap 14 BUN 17 H Creatinine 1.07 Estim Creat Clear Calc 49.8 Estimated GFR 51 Random Glucose 104 Calcium 9.0 Progress Note: A&P Assessment and plan (1) CHF exacerbation: Status: Acute Assessment and Plan: Congestive heart failure exacerbation due to persistent and rapid atrial fibrillation. Rate is better controlled. Symptoms have improved with IV Lasix drip. Continue IV Lasix drip for 1 more day. Continue strict intake and output chart. Unfortunately this has not been well maintained. Continue neurohormonal modulation with carvedilol. Her valsartan and Aldactone are withheld currently due to lower blood pressure. Will continue to monitor post cardioversion to see if he can add these vital neurohormonal modulation prior to discharge. (2) Atrial fibrillation with RVR: Status: Acute Assessment and Plan: Atrial fibrillation rapid ventricular response on admission. Doing much better with digoxin load. Continue carvedilol therapy. Plan for rhythm control after JEREMI guided cardioversion later this afternoon. Risks and benefits were discussed with her. She understands agrees. Continue Eliquis therapy. May require antiarrhythmic drug. Will follow with the patient Fall Risk Details Current Medications: Current Medications Acetaminophen (Acetaminophen 325 Mg Tablet) 650 mg PO Q6H PRN PRN Reason: Pain, Mild (Pain Scale 1-3) Apixaban (Apixaban 5 Mg Tablet) 5 mg PO BID [facility] Last Admin: 07/27/21 08:25 Dose: 5 mg Documented by: Atorvastatin Calcium (Atorvastatin Calcium 10 Mg Tablet) 10 mg PO BEDTIME [facility] Last Admin: 07/26/21 19:37 Dose: 10 mg Documented by: Carvedilol (Carvedilol 25 Mg Tablet) 25 mg PO BID [facility]; Protocol Last Admin: 07/27/21 08:24 Dose: 25 mg Documented by: Docusate Sodium (Docusate Sodium 100 Mg Capsule) 100 mg PO DAILY PRN PRN Reason: Constipation Folic Acid (Folic Acid 1 Mg Tablet) 1 mg PO SUMOTUTHFRSA [facility] Last Admin: 07/27/21 08:34 Dose: 1 mg Documented by: Furosemide 200 mg/ Sodium (Chloride) 100 mls @ 5 mls/hr IVCONT .Q20H [facility] Last Admin: 07/27/21 03:16 Dose: 10 mg/hr, 5 mls/hr Documented by: Lactated Ringer's (Lr) 1,000 mls @ 50 mls/hr IVCONT .Q20H [facility] Methotrexate (Methotrexate Sodium 2.5 Mg Tablet) 12.5 mg PO We@0900 [facility] Last Admin: 07/25/21 08:52 Dose: 12.5 mg Documented by: Metoprolol Tartrate (Metoprolol Tartrate 5 Mg/5 Ml Vial) 2.5 mg IVPUSH Q6H PRN PRN Reason: HR>110 Last Admin: 07/26/21 13:02 Dose: 2.5 mg Documented by: Multivitamins/Vitamin C (Multivitamin Tablet) 1 tab PO DAILY [facility] Last Admin: 07/27/21 08:24 Dose: 1 tab Documented by: Ondansetron HCl (Ondansetron Hcl 4 Mg/2 Ml Vial) 4 mg IVPUSH Q8H PRN PRN Reason: Nausea and Vomiting Pharmacy Consult (Consult Rx Perform Med Rec) 1 each MISCELLANE ONCE PRN PRN Reason: Consult order Sodium Chloride (0.9 % Sodium Chloride Flush 3 Ml Syringe) 3 ml IVFLUSH QSHIFT [facility] Last Admin: 07/27/21 11:15 Dose: Not Given Documented by: Spironolactone (Spironolactone 25 Mg Tablet) 12.5 mg PO DAILY [facility]; Protocol Last Admin: 07/26/21 09:20 Dose: Not Given Documented by: Valsartan (Valsartan 40 Mg Tablet) 20 mg PO BID [facility]; Protocol Last Admin: 07/26/21 09:21 Dose: Not Given Documented by: Vitamin D (Cholecalciferol (Vitamin D3) 25 Mcg Tablet) 125 mcg PO BID [facility] Last Admin: 07/27/21 08:24 Dose: 125 mcg Documented by: Time Spent With Patient Time: Total time spent is greater than 50% in coordination of care (as documented) at patient's floor/unit and/or counseling patient: Time with patient: 25 - 35 minutes Progress Note: Quality Stroke Does the patient have a stroke diagnosis?: No Procedures Date of Service Date of Service: 07/27/21
--- NOTE | 2021-07-27 14:57 | HO.CARDIVERS ---
Cardioversion Procedure Note Cardioversion Date of Procedure: 07/27/2021 Ordering Provider: Myself Performing Provider: Myself Indication for Procedure: Persistent atrial fibrillation with heart failure Pre-Op Diagnosis: Same Post-Op Diagnosis: Persistent atrial fibrillation Performed with Transesophageal Echo: Yes JEREMI findings (if JEREMI Performed): No left atrial appendage clot. Reduced left atrial appendage velocity. Smoke formation seen with the left atrium. Left atrium is significantly enlarged. LV is severely depressed History: See my consult Consent: Verbal and Written consent was obtained from the patient before starting and confirming oral anticoagulant use The patient was made aware of the risk of synchronized cardioversion including risks, benefits, alternatives and 2nd opinion to procedure. Procedure: After consent obtained, cardioversion pads were attached AP configuration and the patient was sedated by the anesthesia team. Once adequate sedation achieved, patient was delivered 200 joules of biphasic synchronized energy in anteroposterior configuration. This was done 2 times Complications: None Impression: Failed synchronized cardioversion Recommendations: 1. Start IV amiodarone drip with loading dose of 150 mg over 10 minutes 2. Plan synchronized cardioversion after adequate loading tomorrow again 3. ICD was reprogrammed to VVIR to prevent inappropriate atrial pacing 4. Continue oral anticoagulation
[2021-07-27] MEDS: Amiodarone HCL 900 MG in 0.9 % Sodium Chloride 500 ML 34.53 MG IVCONT (17:04)
[2021-07-27] MEDS: Atorvastatin Calcium 10 MG TABLET PO (21:44)
[2021-07-28] VITALS (19 sets, daily range): BP systolic 89–105; BP diastolic 35–64; PULSE 73–88; RESP 15–20; TEMP 36.2–36.8; O2SAT 92–988; BMI 29.7
--- NOTE | 2021-07-28 04:09 | PC.NURSE ---
CARE ASSUMED 23:15...AWAKE..ALERT..ORIENTED X3...REMAINS ATRIAL FIB WITH RARE PACED BEATS...AMIODARONE DRIP 0.5 MG.MIN...LASIX DRIP 10 MG/HR....OOB TO BR TO VOID BUT EITHER WILL NOT UTILIZE HAT TO MEASURE AND/OR EMPTIES DESPITE INSTRUCTIONS...SBP SOFT BUT ASYMPTOMATIC..DENIES DIZZYNESS...RESTFUL OVERNIGHT...DENIES/OFFERS NO COMPLAINTS
[2021-07-28] MEDS: carvediloL 25 MG TABLET PO ×2 (08:06→20:23)
[2021-07-28] MEDS: Multivitamin TABLET 1 TAB PO (08:06)
[2021-07-28] MEDS: Cholecalciferol (Vitamin D3) 25 MCG TABLET 125 MCG PO ×2 (08:06→20:20)
[2021-07-28] MEDS: Apixaban 5 MG TABLET PO ×2 (08:06→20:23)
[2021-07-28 08:07] LABS: Anion Gap 16 (12-20); Blood Urea Nitrogen 19 mg/dL (9-16); Calcium 8.9 mg/dL (8.4-10.2); Carbon Dioxide 31 mmol/L (22-29); Chloride 95 mmol/L (96-108); Creatinine Clr Calc Pharmacy 47.9; Estimated Glomerular Filt Rate 46; Glucose Random 95 mg/dL (60-115); Potassium 3.4 mmol/L (3.3-5.1); Sodium 139 mmol/L (135-145)
[2021-07-28] MEDS: Folic Acid 1 MG TABLET PO (08:07)
[2021-07-28] MEDS: 0.9 % Sodium Chloride Flush 3 ML SYRINGE IVFLUSH ×3 (08:08→20:24)
--- NOTE | 2021-07-28 12:16 | HO.ANESPROP2 ---
[facility] Active Problems Active Problems: All Active Problems (Updated 07/25/21 @ 11:07 by Chris Saxena MD) CAD (coronary artery disease) (Acute) Nonischemic cardiomyopathy (Acute) Biventricular ICD (implantable cardioverter-defibrillator) in place (Acute) Elevated troponin (Acute) Elevated troponin (Acute) Chest pain (Acute) CHF exacerbation (Acute) Congestive heart failure (Acute) Atrial fibrillation with RVR (Acute) Past Medical History Medical History Atrial fibrillation Biventricular ICD (implantable cardioverter-defibrillator) in place Blind left eye CAD (coronary artery disease) CHF (congestive heart failure) H/O cardiac pacemaker Nonischemic cardiomyopathy Rheumatoid arthritis Functional capacity: independent ambulation Family History Family history of problems with anesthesia: No Surgical History Surgical History No pertinent past surgical history History of Problems with Anesthesia: No Social History Social History Household Members: Significant Other Housing: House Do you presently have visiting nurse or other home services: No Patient Tobacco Use Status: Former Tobacco user Quit Date: 2010 Tobacco use type: Cigarette Cigarette Packs Per Day: 1 Cigarettes Per Day: 20.0 Smoked in Last 30 Days: No Second Hand Smoke Exposure: No Use of substances other than those prescribed or required for medical reasons: No Currently Displaying Signs/Symptoms of Drug Intoxication Withdrawal: No Have you been hit, kicked, punched, or otherwise hurt by someone within the past year? If so, by whom?: No Do you feel safe in your current relationship?: Yes Is there a partner from a previous relationship who is making you feel unsafe now?: No Are you made to feel afraid or neglected: No Are you DNR?: No Advance Directives: No Advance Directives Information Provided: No Do you have thoughts of harming others: None Do you have a plan to hurt others: No Plan Recently lost weight without trying: No Nutrition Risks: No Nutritional Risk Patient : No : No Poor oral hygiene: No service: No Current occupational status: retired Meds Allergies Allergy/AdvReac Type Severity Reaction Status Date / Time erythromycin base Allergy Unknown NAUSEA Verified 07/24/21 16:52 [ERYTHROMYCIN BASE] indomethacin [Indomethacin] Allergy Unknown STOMACH Verified 07/24/21 16:52 UPSET & HEADACHE Sulfa (Sulfonamide Allergy Unknown Hives Verified 07/24/21 16:52 Antibiotics) sulfamethoxazole Allergy Unknown HIVES Verified 07/24/21 16:52 [From BACTRIM] trimethoprim [From BACTRIM] Allergy Unknown HIVES Verified 07/24/21 16:52 azithromycin [From Zithromax] AdvReac Unknown NAUSEA & Verified 07/24/21 16:52 VOMITTING Pt states no known food Allergy Unknown Hives Uncoded 07/24/21 16:52 allerg Active Medications: Current Medications Acetaminophen (Acetaminophen 325 Mg Tablet) 650 mg PO Q6H PRN PRN Reason: Pain, Mild (Pain Scale 1-3) Apixaban (Apixaban 5 Mg Tablet) 5 mg PO BID [facility] Last Admin: 07/28/21 08:06 Dose: 5 mg Documented by: Atorvastatin Calcium (Atorvastatin Calcium 10 Mg Tablet) 10 mg PO BEDTIME [facility] Last Admin: 07/27/21 21:44 Dose: 10 mg Documented by: Carvedilol (Carvedilol 25 Mg Tablet) 25 mg PO BID [facility]; Protocol Last Admin: 07/28/21 08:06 Dose: 25 mg Documented by: Docusate Sodium (Docusate Sodium 100 Mg Capsule) 100 mg PO DAILY PRN PRN Reason: Constipation Folic Acid (Folic Acid 1 Mg Tablet) 1 mg PO SUMOTUTHFRSA [facility] Last Admin: 07/28/21 08:07 Dose: 1 mg Documented by: Furosemide (Furosemide 40 Mg Tablet) 40 mg PO BID@0900,1800 [facility]; Protocol Amiodarone HCl 900 mg/ Sodium (Chloride) 518 mls @ 34.533 mls/hr IVCONT .Q15H1M [facility]; Protocol Last Admin: 07/28/21 06:25 Dose: Not Given Documented by: Methotrexate (Methotrexate Sodium 2.5 Mg Tablet) 12.5 mg PO We@0900 [facility] Last Admin: 07/25/21 08:52 Dose: 12.5 mg Documented by: Metoprolol Tartrate (Metoprolol Tartrate 5 Mg/5 Ml Vial) 2.5 mg IVPUSH Q6H PRN PRN Reason: HR>110 Last Admin: 07/26/21 13:02 Dose: 2.5 mg Documented by: Multivitamins/Vitamin C (Multivitamin Tablet) 1 tab PO DAILY [facility] Last Admin: 07/28/21 08:06 Dose: 1 tab Documented by: Ondansetron HCl (Ondansetron Hcl 4 Mg/2 Ml Vial) 4 mg IVPUSH Q8H PRN PRN Reason: Nausea and Vomiting Pharmacy Consult (Consult Rx Perform Med Rec) 1 each MISCELLANE ONCE PRN PRN Reason: Consult order Sodium Chloride (0.9 % Sodium Chloride Flush 3 Ml Syringe) 3 ml IVFLUSH QSHIFT [facility] Last Admin: 07/28/21 08:08 Dose: 3 ml Documented by: Spironolactone (Spironolactone 25 Mg Tablet) 12.5 mg PO DAILY [facility]; Protocol Last Admin: 07/26/21 09:20 Dose: Not Given Documented by: Valsartan (Valsartan 40 Mg Tablet) 20 mg PO BID [facility]; Protocol Last Admin: 07/26/21 09:21 Dose: Not Given Documented by: Vitamin D (Cholecalciferol (Vitamin D3) 25 Mcg Tablet) 125 mcg PO BID [facility] Last Admin: 07/28/21 08:06 Dose: 125 mcg Documented by: Home Medications Medication Instructions Recorded Confirmed Last Taken Type aspirin 81 mg chewable tablet 81 mg PO DAILY 07/24/21 07/24/21 07/24/21 History biotin 125 mg PO DAILY 07/24/21 07/24/21 07/24/21 History calcium carbonate 500 mg calcium 500 mg PO DAILY 07/24/21 07/24/21 07/24/21 History (1,250 mg) tablet (Calcium 500) carvedilol 25 mg tablet 25 mg PO BID 07/24/21 07/24/21 07/24/21 History cholecalciferol (vitamin D3) 125 125 mcg PO BID 07/24/21 07/24/21 07/24/21 History mcg (5,000 unit) tablet (Vitamin D3) folic acid 1 mg tablet 1 mg PO SUMOTUTHFRSA 07/24/21 07/24/21 07/24/21 History lisinopril 2.5 mg tablet 2.5 mg PO BEDTIME 07/24/21 07/24/21 07/23/21 History methotrexate sodium 2.5 mg tablet 5 tab PO WE 07/24/21 07/24/21 07/18/21 History multivitamin 1 tab PO DAILY 07/24/21 07/24/21 07/24/21 History simvastatin 20 mg tablet 20 mg PO BEDTIME 07/24/21 07/24/21 07/23/21 History Exam Exam Date and Time: July 28, 2021 1216 Height,Weight and Vital Signs: Height 5 ft 4 in Weight 78.5 kg Last Vital Signs Temp 97.2 F 07/28/21 11:09 Pulse 76 07/28/21 11:09 Resp 15 07/28/21 11:09 BP 98/53 L 07/28/21 11:09 Pulse Ox 94 07/28/21 11:09 Pertinent Lab Results Pertinent Lab Results: Laboratory Tests 07/24/21 07/24/21 07/24/21 17:55 17:58 17:58 WBC 5.4 RBC 3.51 L Hgb 10.9 L Hct 34.1 L MCV 97.2 MCH 31.1 MCHC 32.0 RDW 14.4 Plt Count 214 MPV 10.5 Immature Gran % (Auto) 0.4 Neut % (Auto) 70.9 Lymph % (Auto) 17.5 L [place] % (Auto) 8.4 Eos % (Auto) 2.2 Baso % (Auto) 0.6 Lymph # (Auto) 0.9 L [place] # (Auto) 0.5 Eos # (Auto) 0.1 Baso # (Auto) 0.0 Abs Immat Gran (auto) 0.02 Absolute Neuts (auto) 3.82 Absolute Nucleated RBC 0.000 Nucleated RBC % (auto) 0.0 PT INR APTT Sodium 138 Potassium 4.7 Chloride 109 H Carbon Dioxide 22 Anion Gap 12 BUN 17 H Creatinine 1.02 Estim Creat Clear Calc 56.0 Estimated GFR 54 Random Glucose 113 Calcium 8.8 Magnesium 1.9 Total Bilirubin 0.9 Direct Bilirubin 0.4 AST 19 ALT 17 Alkaline Phosphatase 83 Troponin I High Sens B-Natriuretic Peptide Total Protein 6.0 L Albumin 3.6 COVID-19 (CHIDI) Negative COVID-19 Clin Com See Note 07/24/21 07/24/21 07/24/21 17:58 18:22 20:21 WBC RBC Hgb Hct MCV MCH MCHC RDW Plt Count MPV Immature Gran % (Auto) Neut % (Auto) Lymph % (Auto) [place] % (Auto) Eos % (Auto) Baso % (Auto) Lymph # (Auto) [place] # (Auto) Eos # (Auto) Baso # (Auto) Abs Immat Gran (auto) Absolute Neuts (auto) Absolute Nucleated RBC Nucleated RBC % (auto) PT 15.9 H INR 1.4 H APTT 31.1 Sodium Potassium Chloride Carbon Dioxide Anion Gap BUN Creatinine Estim Creat Clear Calc Estimated GFR Random Glucose Calcium Magnesium Total Bilirubin Direct Bilirubin AST ALT Alkaline Phosphatase Troponin I High Sens 18.5 H* 20.2 H* B-Natriuretic Peptide 603 H Total Protein Albumin COVID-19 (CH[facility]I) COVID-19 [employer] 07/25/21 07/25/21 07/25/21 06:37 06:37 06:37 WBC 4.2 L RBC 3.42 L Hgb 10.4 L Hct 32.1 L MCV 93.9 MCH 30.4 MCHC 32.4 RDW 14.0 Plt Count 191 MPV 10.3 Immature Gran % (Auto) 0.2 Neut % (Auto) 54.9 Lymph % (Auto) 26.4 [place] % (Auto) 10.2 Eos % (Auto) 8.1 H Baso % (Auto) 0.2 Lymph # (Auto) 1.1 L [place] # (Auto) 0.4 Eos # (Auto) 0.3 Baso # (Auto) 0.0 Abs Immat Gran (auto) 0.01 Absolute Neuts (auto) 2.31 Absolute Nucleated RBC 0.000 Nucleated RBC % (auto) 0.0 PT INR APTT Sodium 138 Potassium 4.3 Chloride 106 Carbon Dioxide 27 Anion Gap 9 L BUN 17 H Creatinine 0.92 Estim Creat Clear Calc 63.7 Estimated GFR > 60 Random Glucose 99 Calcium 8.5 Magnesium Total Bilirubin Direct Bilirubin AST ALT Alkaline Phosphatase Troponin I High Sens 19.5 H* B-Natriuretic Peptide Total Protein Albumin COVID-19 ([facility]I) COVID-19 [employer] 07/27/21 07/28/21 05:44 07:01 WBC RBC Hgb Hct MCV MCH MCHC RDW Plt Count MPV Immature Gran % (Auto) Neut % (Auto) Lymph % (Auto) [place] % (Auto) Eos % (Auto) Baso % (Auto) Lymph # (Auto) [place] # (Auto) Eos # (Auto) Baso # (Auto) Abs Immat Gran (auto) Absolute Neuts (auto) Absolute Nucleated RBC Nucleated RBC % (auto) PT INR APTT Sodium 140 139 Potassium 3.4 D 3.4 Chloride 97 95 L Carbon Dioxide 32 H 31 H Anion Gap 14 16 BUN 17 H 19 H Creatinine 1.07 1.17 Estim Creat Clear Calc 49.8 47.9 Estimated GFR 51 46 Random Glucose 104 95 Calcium 9.0 8.9 Magnesium Total Bilirubin Direct Bilirubin AST ALT Alkaline Phosphatase Troponin I High Sens B-Natriuretic Peptide Total Protein Albumin COVID-19 ([facility]I) COVID-19 Clin Com Airway Mallampati Class: II TM Dist: >3cm Heart: irregular Lungs: cTA Assessment and Plan Final Anesthetic Review Family History of Problems with Anesthesia: No History of Problems with Anesthesia: No ASA Class: III and Emergency Final Preanesthetic Review: No Changes in Pt Med Stat Patient Risk: Intermediate Procedure Risk: Intermediate Anesthetic Plan Anesthetic Plan: GA Disposition: Standard PACU
--- NOTE | 2021-07-28 12:20 | HO.PM.IMPN ---
Subjective Subjective Date of Service: 07/28/21 Interval History: Being followed for atrial fibrillation and heart failure, patient sitting comfortably on bed denies chest pain, no shortness of breath, offers no acute complaints, no issues overnight. Review of Systems General no headache, no dizziness no fever chills. CVS no chest pain, no palpitation. Respiratory no cough, no sob. Gastrointestinal no nausea no vomiting, no abdominal pain Review of Systems: Yes all other systems are reviewed and are negative Physical Exam Vital Signs: Vital Signs: Last Vital Signs Temp 97.2 F 07/28/21 11:09 Pulse 76 07/28/21 11:09 Resp 15 07/28/21 11:09 BP 98/53 L 07/28/21 11:09 Pulse Ox 94 07/28/21 11:09 Body Mass Index 29.7 General: AX O X 3, no acute distress Neck no JVD Resp:? Lungs clear to auscultation, no crackles no rhonchi no respiratory distress CVS: irregular, GI: +BS, NT, no distention Skin: No rash Extremities no edema Neuro:? motor grossly intact Psych: appropriate affect, appropriate insight ? Objective Data Active Medications Acetaminophen (Acetaminophen 325 Mg Tablet) 650 mg PO Q6H PRN PRN Reason: Pain, Mild (Pain Scale 1-3) Apixaban (Apixaban 5 Mg Tablet) 5 mg PO BID [facility] Last Admin: 07/28/21 08:06 Dose: 5 mg Documented by: MADISON Atorvastatin Calcium (Atorvastatin Calcium 10 Mg Tablet) 10 mg PO BEDTIME [facility] Last Admin: 07/27/21 21:44 Dose: 10 mg Documented by: LYNNE Carvedilol (Carvedilol 25 Mg Tablet) 25 mg PO BID [facility]; Protocol Last Admin: 07/28/21 08:06 Dose: 25 mg Documented by: MADISON Docusate Sodium (Docusate Sodium 100 Mg Capsule) 100 mg PO DAILY PRN PRN Reason: Constipation Folic Acid (Folic Acid 1 Mg Tablet) [address] [facility] [facility] Last Admin: 07/28/21 08:07 Dose: 1 mg Documented by: MADISON Furosemide (Furosemide 40 Mg Tablet) 40 mg PO BID@0900,1800 [facility]; Protocol Amiodarone HCl 900 mg/ Sodium (Chloride) 518 mls @ 34.533 mls/hr IVCONT .Q15H1M [facility]; Protocol Last Admin: 07/28/21 06:25 Dose: Not Given Documented by: SONA Non-Admin Reason: IV Running Methotrexate (Methotrexate Sodium 2.5 Mg Tablet) 12.5 mg PO We@0900 [facility] Last Admin: 07/25/21 08:52 Dose: 12.5 mg Documented by: RODO Metoprolol Tartrate (Metoprolol Tartrate 5 Mg/5 Ml Vial) 2.5 mg IVPUSH Q6H PRN PRN Reason: HR>110 Last Admin: 07/26/21 13:02 Dose: 2.5 mg Documented by: RODO Multivitamins/Vitamin C (Multivitamin Tablet) 1 tab PO DAILY [facility] Last Admin: 07/28/21 08:06 Dose: 1 tab Documented by: MADISON Ondansetron HCl (Ondansetron Hcl 4 Mg/2 Ml Vial) 4 mg IVPUSH Q8H PRN PRN Reason: Nausea and Vomiting Pharmacy Consult (Consult Rx Perform Med Rec) 1 each MISCELLANE ONCE PRN PRN Reason: Consult order Sodium Chloride (0.9 % Sodium Chloride Flush 3 Ml Syringe) 3 ml IVFLUSH QSHIFT [facility] Last Admin: 07/28/21 08:08 Dose: 3 ml Documented by: MADISON Spironolactone (Spironolactone 25 Mg Tablet) 12.5 mg PO DAILY [facility]; Protocol Last Admin: 07/26/21 09:20 Dose: Not Given Documented by: RODO Non-Admin Reason: LOW BP Valsartan (Valsartan 40 Mg Tablet) 20 mg PO BID [facility]; Protocol Last Admin: 07/26/21 09:21 Dose: Not Given Documented by: RODO Non-Admin Reason: LOW BP Vitamin D (Cholecalciferol (Vitamin D3) 25 Mcg Tablet) 125 mcg PO BID [facility] Last Admin: 07/28/21 08:06 Dose: 125 mcg Documented by: MADISON Labs CBC & Chem 7: 07/25/21 06:37 07/28/21 07:01 Labs: Laboratory Results - last 24 hr 07/28/21 07:01 Anion Gap 16 Estim Creat Clear Calc 47.9 Estimated GFR 46 Random Glucose 95 Calcium 8.9 Assessment and Plan (1) CAD (coronary artery disease): Status: Acute (2) Nonischemic cardiomyopathy: Status: Acute (3) Biventricular ICD (implantable cardioverter-defibrillator) in place: Status: Acute (4) Congestive heart failure: Status: Acute (5) Atrial fibrillation with RVR: Status: Acute Assessment and Plan: 66-year-old female with past medical history of congestive heart failure as well as AFib who presents to the hospital with shortness of breath found to have CHF exacerbation and AFib with RVR # Acute HFrEF---LVEF of 20-25%? ? ? Clinically appears euvolemic, despite positive fluid balance ? Will DC IV Lasix drip and placed on Lasix 40 mg by mouth b.i.d., continue Coreg Continue to hold Aldactone and Diovan, BP borderline low BNP 603, renal function stable mild increase in bicarb Will follow BNP/BMP tomorrow # AFib with RVR- Stable ventricular rate, ChadSVASc score of 3,continue coreg and eliquis Status post cardioversion yesterday failed to convert, will have repeat cardioversion today after being loaded with IV amiodarone # chest pain with mild elevated troponin--no evidence of acute ischemica, likely demand myocardial injury from afib with RVR # rheumatoid arthritis, continue methotrexate # HLD continue Lipitor #CAD/ischemic cardiomyopathy has AICD, statin, BB, no ASA d/t eliquis - continue statin DVT p, eliquis Quality Stroke Does the patient have a stroke diagnosis?: No VTE Prior VTE?: No VTE Risk Level:: Medical - moderate - high VTE Device Contraindication: Treatment Not Indicated VTE Drug Contraindication: N/A - Med Ordered
--- NOTE | 2021-07-28 12:38 | MHC.SHP ---
Pre-Procedural Eval Section A Date of Service: 07/28/21 The patient is an INPATIENT: Yes Changes since office visit: Yes Patient answered all questions; No Cold of Flu in the past 2 weeks, No New Medical Problems and No Changes in Medication The History & Physical has been completed within 30 days and I have reviewed it.: Yes Section B Chief Complaint: A Fib w RVR, CHF Allergies: Allergies Allergy/AdvReac Type Severity Reaction Status Date / Time erythromycin base Allergy Unknown NAUSEA Verified 07/24/21 16:52 [ERYTHROMYCIN BASE] indomethacin [Indomethacin] Allergy Unknown STOMACH Verified 07/24/21 16:52 UPSET & HEADACHE Sulfa (Sulfonamide Allergy Unknown Hives Verified 07/24/21 16:52 Antibiotics) sulfamethoxazole Allergy Unknown HIVES Verified 07/24/21 16:52 [From BACTRIM] trimethoprim [From BACTRIM] Allergy Unknown HIVES Verified 07/24/21 16:52 azithromycin [From Zithromax] AdvReac Unknown NAUSEA & Verified 07/24/21 16:52 VOMITTING Pt states no known food Allergy Unknown Hives Uncoded 07/24/21 16:52 allerg Plan I have reviewed the history and physical and performed a pertinent physical examination on my patient. No changes have occurred unless specified.
--- NOTE | 2021-07-28 13:12 | PM.PNCARD ---
Subjective Subjective Date of Service: 07/28/21 Principal diagnosis: Congestive heart failure, atrial fibrillation Interval history: Patient failed cardioversion yesterday. Was started on amiodarone drip which she is tolerating well. Remains in atrial fibrillation. Again underwent repeat attempt at cardioversion. Failed again. Patient remains in atrial fibrillation. ICD was programmed in VVIR mode. Heart failure symptoms have significantly improved. Heart rate is improved. Review of Systems Review of Systems Yes all other systems are reviewed and are negative Physical Exam Vital Signs: Last Vital Signs Temp 97.4 F 07/28/21 12:50 Pulse 80 07/28/21 13:00 Resp 16 07/28/21 13:00 BP 94/37 L 07/28/21 13:00 Pulse Ox 94 07/28/21 13:00 Body Mass Index 29.7 Const General: cooperative, comfortable and no acute distress Nutritional Appearance: average body habitus Orientation/consciousness: patient oriented x3 Limitations: no limitations Neck Neck: Yes trachea midline, Yes supple and Yes no JVD Resp Effort & Inspection: normal respiratory effort Auscultation: clear to auscultation bilaterally Cardio Jugular venous distension: no JVD Palpation: abnormal PMI displaced PMI Rate: regular rate Rhythm: abnormal rhythm irregularly irregular Heart sounds: S1 normal heart sound present, S2 normal heart sound present, no click, no gallops and no murmurs GI Auscultation: normal bowel sounds Skin General skin exam: no rashes or lesions noted Neuro General: patient oriented x3 and no focal motor deficits Extrem General: Yes no clubbing, cyanosis or edema Results Labs and Meds Result diagrams: 07/25/21 06:37 07/28/21 07:01 Lab results: Laboratory Results - last 24 hr 07/28/21 07:01 Sodium 139 Potassium 3.4 Chloride 95 L Carbon Dioxide 31 H Anion Gap 16 BUN 19 H Creatinine 1.17 Estim Creat Clear Calc 47.9 Estimated GFR 46 Random Glucose 95 Calcium 8.9 Progress Note: A&P Assessment and plan (1) CHF exacerbation: Status: Acute Assessment and Plan: Present with acute CHF exacerbation, doing extremely well. Switch to p.o. Lasix. Continue carvedilol therapy. Will still benefit from rhythm control approach, see below. Due to low blood pressure will hold off on resuming valsartan and Aldactone therapy at this point time. Tomorrow for blood pressure is reasonable may start low-dose valsartan therapy on discharge. Follow up as outpatient. She would like to now carry on follow-up more locally and will give her a follow-up in the clinic. (2) Persistent atrial fibrillation: Status: Acute Assessment and Plan: Persistent and resistant atrial fibrillation to cardioversion. She has significant left atrial enlargement and her duration of atrial fibrillation may be underestimated. ICD was reprogrammed to VVIR mode to avoid inappropriate sensing of the atrial activity and pacing. Continue amiodarone loading, will switch to p.o. loading 400 mg b.i.d.. Follow up in the clinic in 10 days time and will check her ICD function at that point time. If remains in persistent atrial fibrillation will plan for synchronized cardioversion after adequate loading in 2 weeks time. Continue full oral anticoagulation with Eliquis. Will follow with you Fall Risk Details Current Medications: Current Medications Acetaminophen (Acetaminophen 325 Mg Tablet) 650 mg PO Q6H PRN PRN Reason: Pain, Mild (Pain Scale 1-3) Amiodarone HCl (Amiodarone Hcl 200 Mg Tablet) 400 mg PO BID [facility] Apixaban (Apixaban 5 Mg Tablet) 5 mg PO BID [facility] Last Admin: 07/28/21 08:06 Dose: 5 mg Documented by: Atorvastatin Calcium (Atorvastatin Calcium 10 Mg Tablet) 10 mg PO BEDTIME [facility] Last Admin: 07/27/21 21:44 Dose: 10 mg Documented by: Carvedilol (Carvedilol 25 Mg Tablet) 25 mg PO BID [facility]; Protocol Last Admin: 07/28/21 08:06 Dose: 25 mg Documented by: Docusate Sodium (Docusate Sodium 100 Mg Capsule) 100 mg PO DAILY PRN PRN Reason: Constipation Folic Acid (Folic Acid 1 Mg Tablet) 1 mg PO SUMOTUTHFRSA [facility] Last Admin: 07/28/21 08:07 Dose: 1 mg Documented by: Furosemide (Furosemide 40 Mg Tablet) 40 mg PO BID@0900,1800 [facility]; Protocol Methotrexate (Methotrexate Sodium 2.5 Mg Tablet) 12.5 mg PO We@0900 [facility] Last Admin: 07/25/21 08:52 Dose: 12.5 mg Documented by: Metoprolol Tartrate (Metoprolol Tartrate 5 Mg/5 Ml Vial) 2.5 mg IVPUSH Q6H PRN PRN Reason: HR>110 Last Admin: 07/26/21 13:02 Dose: 2.5 mg Documented by: Multivitamins/Vitamin C (Multivitamin Tablet) 1 tab PO DAILY [facility] Last Admin: 07/28/21 08:06 Dose: 1 tab Documented by: Ondansetron HCl (Ondansetron Hcl 4 Mg/2 Ml Vial) 4 mg IVPUSH Q8H PRN PRN Reason: Nausea and Vomiting Pharmacy Consult (Consult Rx Perform Med Rec) 1 each MISCELLANE ONCE PRN PRN Reason: Consult order Silver Sulfadiazine (Silver Sulfadiazine 1 % Cream 20 Gm Tube) 1 appl TOPICAL BID [facility] Sodium Chloride (0.9 % Sodium Chloride Flush 3 Ml Syringe) 3 ml IVFLUSH QSHIFT [facility] Last Admin: 07/28/21 08:08 Dose: 3 ml Documented by: Spironolactone (Spironolactone 25 Mg Tablet) 12.5 mg PO DAILY [facility]; Protocol Last Admin: 07/26/21 09:20 Dose: Not Given Documented by: Valsartan (Valsartan 40 Mg Tablet) 20 mg PO BID [facility]; Protocol Last Admin: 07/26/21 09:21 Dose: Not Given Documented by: Vitamin D (Cholecalciferol (Vitamin D3) 25 Mcg Tablet) 125 mcg PO BID [facility] Last Admin: 07/28/21 08:06 Dose: 125 mcg Documented by: Time Spent With Patient Time: Total time spent is greater than 50% in coordination of care (as documented) at patient's floor/unit and/or counseling patient: Time with patient: 25 - 35 minutes Progress Note: Quality Stroke Does the patient have a stroke diagnosis?: No Procedures Date of Service Date of Service: 07/28/21
[2021-07-28] MEDS: Amiodarone HCL 200 MG TABLET 400 MG PO ×2 (13:31→20:22)
[2021-07-28] MEDS: Furosemide 40 MG TABLET PO (17:37)
[2021-07-28] MEDS: Atorvastatin Calcium 10 MG TABLET PO (20:23)
[2021-07-28] MEDS: Silver Sulfadiazine 1 % Cream 20 GM TUBE 1 APPL TOPICAL (20:28)
[2021-07-29 03:27] VITALS: BP 96/50; PULSE 69; RESP 18; TEMP 36.6; O2SAT 94
[2021-07-29 07:10] LABS: Anion Gap 12 (12-20); Blood Urea Nitrogen 21 mg/dL (9-16); Calcium 8.9 mg/dL (8.4-10.2); Carbon Dioxide 34 mmol/L (22-29); Chloride 96 mmol/L (96-108); Creatinine Clr Calc Pharmacy 48.3; Estimated Glomerular Filt Rate 47; Glucose Random 91 mg/dL (60-115); Potassium 3.4 mmol/L (3.3-5.1); Sodium 139 mmol/L (135-145)
[2021-07-29 07:13] LABS: B Type Natriuretic Peptide 166 pg/mL (<100)
[2021-07-29 07:25] VITALS: BP 93/59; PULSE 77; RESP 18; TEMP 36.4; O2SAT 96
[2021-07-29 08:08] VITALS: BP 110/70; PULSE 84
[2021-07-29] MEDS: 0.9 % Sodium Chloride Flush 3 ML SYRINGE IVFLUSH (08:08)
[2021-07-29] MEDS: Amiodarone HCL 200 MG TABLET 400 MG PO (08:08)
[2021-07-29 08:09] VITALS: BP 110/70; PULSE 84
[2021-07-29] MEDS: carvediloL 25 MG TABLET PO (08:09)
[2021-07-29] MEDS: Furosemide 40 MG TABLET PO (08:09)
[2021-07-29] MEDS: Cholecalciferol (Vitamin D3) 25 MCG TABLET 125 MCG PO (08:09)
[2021-07-29] MEDS: Apixaban 5 MG TABLET PO (08:09)
[2021-07-29] MEDS: Multivitamin TABLET 1 TAB PO (08:09)
[2021-07-29] MEDS: Silver Sulfadiazine 1 % Cream 20 GM TUBE 1 APPL TOPICAL (08:13)
[2021-07-29] MEDS: Folic Acid 1 MG TABLET PO (08:20)
--- NOTE | 2021-07-29 10:44 | MHC.CM.PN ---
PT CLEARED TO DC HOME TODAY WITH NO SERVICES PT TO ARRANGE TRANSPORT
--- NOTE | 2021-07-29 10:45 | MHC.CM.PN ---
order for home, self care. CM acknowledge.
--- NOTE | 2021-07-29 11:02 | PM.DS ---
DS: Providers Provider Date of Service: 07/29/21 Date of admission: 07/24/21 21:32 Primary care physician: Oumar Atkinson MD Consults: 07/24/21 23:44 Consult to Cardiology Routine Consulting Provider: Chris Saxena Reason for consultation: CHF, A fib w RVR Has provider been notified: No DS: Diagnosis Discharge Diagnosis (1) CHF exacerbation: Status: Acute (2) Persistent atrial fibrillation: Status: Acute DS: Summary Hospital Course Hospital Course: History of presenting illness Chief Complaint: SOB 66-year-old female with past medical history of CHF, status post defibrillator/pacemaker, history of atrial fibrillation, rheumatoid arthritis who presents to the hospital with complaints of shortness of breath as well as chest pain.? Patient reports that she started having symptoms about 5 days ago where she developed dyspnea worsened on exertion, orthopnea, PND, she denies any leg swelling, no cough or sputum production.? She also developed left-sided chest pain that is not radiating, chest pain feels like tightness in the chest, constant, midsternal, nonradiating, associated with a lot of activity around the house as the patient is trying to sell her house, 03/31, not relieved by rest.? No 6 [place] exacerbate soni.? Patient reports that she is selling her house therefore she has been doing a lot of cleaning and moving in going up and down 3 stories of stairs throughout the day and has been feeling a lot of stress lately. ?She denies any fever or chills, no dizziness, no headache, no palpitations, no nausea or vomiting, no change in vision, no abdominal pain, no diarrhea or constipation, no urinary symptoms.? No numbness tingling or weakness Stable with temp of 98.7?, heart rate was found to be around 110 to 120s, respiratory rate of 17, blood pressure 102/66 on room air Labs are significant for hemoglobin of 10.9, PT of 15.9, INR of 1.4, BUN of 17 with a creatinine of 1.02, troponin of 18.5 with a repeat of 20.2, BNP of 603 Suspect pulmonary edema with indistinct prominent central vessels and small bilateral effusions EKG showed AFib with RVR, LBB, no previous for comparison.? reports that she has history of AFib but refused to take anticoagulation as she was afraid of the risks but is willing to start taking anticoagulation now Patient given 1 dose of Eliquis in the ED, Cardizem IV push and will be admitted for further management 66-year-old female with past medical history of congestive heart failure as well as persistent AFib who presents to the hospital with shortness of breath found to have CHF exacerbation and AFib with RVR, patient admitted to telemetry with diagnosis of Acute systolic heart failure with EF 20-25%, patient treated with IV Lasix drip subsequently transitioned to by mouth Lasix patient currently appears euvolemic, it was felt that patient will benefit from rhythm control, therefore cardioversion was attempted twice but failed, patient treated with IV amiodarone loading, subsequently transition to by mouth amiodarone loading,ICD was reprogrammed to VVIR to prevent inappropriate atrial pacing, patient ventricular rate is stable she remains in atrial fibrillation she is being discharged home on amiodarone 400 mg twice daily for 2 weeks followed by amiodarone 200 mg daily she has been continued on Coreg and Eliquis, started on low-dose valsartan, she is recommended to have outpatient follow-up with Dr. Vasquez in 1 week time. Patient noted to have elevated troponin, EKG showed no evidence of acute ischemia likely demand myocardial injury from AFib with RVR further workup as per Cardiology In regard to a chronic medical issues including hyperlipidemia, rheumatoid arthritis she has been continued on methotrexate and Lipitor. Time Spent with Patient Time attestation: Total time spent providing and/or coordinating discharge services: Discharge coordination time: Greater than 30 minutes Quality: Stroke Does the patient have a stroke diagnosis?: No Physical Exam Vital Signs: Vital Signs: Last Vital Signs Temp 97.6 F 07/29/21 07:25 Pulse 84 07/29/21 08:09 Resp 18 07/29/21 07:25 BP 110/70 07/29/21 08:09 Pulse Ox 96 07/29/21 07:25 Body Mass Index 29.7 General: A X O X 3, no acute distress Neck no JVD Resp:? Lungs clear to auscultation, no crackles no rhonchi no respiratory distress CVS: irregular, GI: +BS, NT, no distention Skin: No rash Extremities no edema Neuro:? motor grossly intact Psych: appropriate affect, appropriate insight DS: Data Data Completed and Pending Labs on day of discharge: Laboratory Results - last 24 hr 07/29/21 07/29/21 06:31 06:31 Sodium 139 Potassium 3.4 Chloride 96 Carbon Dioxide 34 H Anion Gap 12 BUN 21 H Creatinine 1.16 Estim Creat Clear Calc 48.3 Estimated GFR 47 Random Glucose 91 Calcium 8.9 B-Natriuretic Peptide 166 H Discharge Plan Discharge Patient Disposition: Home, Self-Care Discharge Diagnosis: Acute Systolic congestive heart failure Persistent AFib with RVR Elevated troponin Referrals: Oumar Atkinson MD [Primary Care Provider] - 1 Week Discharge Medications: New Eliquis 5 mg Tablet 5 mg PO BID Qty: 60 RF: 0 furosemide 40 mg Tablet 40 mg PO BID@0900,1800 Qty: 60 RF: 0 valsartan 40 mg Tablet 20 mg PO BID Qty: 60 RF: 0 amiodarone 400 mg tablet 400 mg PO BID Qty: 28 RF: 0 amiodarone 200 mg tablet 200 mg PO DAILY Qty: 30 RF: 0 Continued multivitamin Tablet 1 tab PO DAILY RF: 0 carvedilol 25 mg tablet 25 mg PO BID RF: 0 calcium carbonate [Calcium 500] 500 mg calcium (1,250 mg) Tablet 500 mg PO DAILY RF: 0 methotrexate sodium 2.5 mg tablet 5 tab PO WE RF: 0 simvastatin 20 mg tablet 20 mg PO BEDTIME RF: 0 folic acid 1 mg tablet 1 mg PO SUMOTUTHFR RF: 0 cholecalciferol (vitamin D3) [Vitamin D3] 125 mcg (5,000 unit) Tablet 125 mcg PO BID RF: 0 biotin 125 mg PO DAILY RF: 0 Discontinued aspirin 81 mg Tablet,Chewable 81 mg PO DAILY RF: 0 lisinopril 2.5 mg tablet 2.5 mg PO BEDTIME RF: 0 Discharge Orders: Discharge Order (Routine); Ordered 07/29/21 Ordered By: Jerald Quinones Diet: low fat, low cholesterol Activity on Discharge: As tolerated Stand Alone Forms: Patient Portal Discharge page Care Plan Goals: Take amiodarone 400 mg 1 tablet twice daily for 2 weeks, then start taking amiodarone 200 mg 1 tablet by mouth daily. Return to check with chest pain, palpitation lightheadedness dizziness or shortness of breath Health Concerns: Continue all medications as prescribed Plan of Treatment: Outpatient follow-up with casing material weigher Dr. Vasquez in 7-10 days call to make an appointment, outpatient follow-up with primary care physician in next 1-2 weeks Assessment: As above
--- NOTE | 2021-07-29 11:07 | P.PNCA_ITS ---
Subjective Subjective Date of Service: 07/29/21 Principal diagnosis: Congestive heart failure, atrial fibrillation Interval history: Patient feeling a lot better. Failed to cardiovert again today. Switch to p.o. amiodarone. Tolerating that well. Heart rate is well controlled. Review of Systems Review of Systems Yes all other systems are reviewed and are negative Physical Exam Vital Signs: Last Vital Signs Temp 97.6 F 07/29/21 07:25 Pulse 84 07/29/21 08:09 Resp 18 07/29/21 07:25 BP 110/70 07/29/21 08:09 Pulse Ox 96 07/29/21 07:25 Body Mass Index 29.7 Const General: cooperative, comfortable, no acute distress, alert and awake Nutritional Appearance: average body habitus Orientation/consciousness: patient oriented x3 Neck Neck: Yes trachea midline, Yes supple and Yes no JVD Resp Effort & Inspection: normal respiratory effort Auscultation: clear to auscultation bilaterally Cardio Jugular venous distension: no JVD Palpation: abnormal PMI displaced PMI Rate: regular rate Rhythm: abnormal rhythm irregularly irregular Heart sounds: S1 normal heart sound present and S2 normal heart sound present GI Auscultation: normal bowel sounds Neuro General: patient oriented x3 and no focal motor deficits Extrem General: Yes no clubbing, cyanosis or edema Results Labs and Meds Result diagrams: 07/25/21 06:37 07/29/21 06:31 Lab results: Laboratory Results - last 24 hr 07/29/21 07/29/21 06:31 06:31 Sodium 139 Potassium 3.4 Chloride 96 Carbon Dioxide 34 H Anion Gap 12 BUN 21 H Creatinine 1.16 Estim Creat Clear Calc 48.3 Estimated GFR 47 Random Glucose 91 Calcium 8.9 B-Natriuretic Peptide 166 H Progress Note: A&P Assessment and plan (1) CHF exacerbation: Status: Acute Assessment and Plan: Congestive heart failure doing well. Continue oral diuretic with Lasix 40 mg b.i.d.. Heart failure education needs to be provided. Daily weight monitoring and avoidance of salt loading. Additional diuretics if needed. Continue carvedilol. Add valsartan 40 mg daily. Hold off on Aldactone addition, will pursue as outpatient. Continue to manage atrial fibrillation aggressively, continue amiodarone loading, see below. (2) Persistent atrial fibrillation: Status: Acute Assessment and Plan: Persistent atrial fibrillation with failed to conversion with IV amiodarone loading. Will switch to p.o. amiodarone loading for total of 2 weeks. Will see her in the clinic in 10 days and check her ICD as well as perform EKG. If still in atrial fibrillation will schedule for synchronized cardioversion after full loading for 14 days. Continue full oral anticoagulation with Eliquis. Continue carvedilol therapy. We discussed in detail about management of atrial fibrillation including if she failed to convert to sinus rhythm. Fall Risk Details Current Medications: Current Medications Acetaminophen (Acetaminophen 325 Mg Tablet) 650 mg PO Q6H PRN PRN Reason: Pain, Mild (Pain Scale 1-3) Amiodarone HCl (Amiodarone Hcl 200 Mg Tablet) 400 mg PO BID [facility] Last Admin: 07/29/21 08:08 Dose: 400 mg Documented by: Apixaban (Apixaban 5 Mg Tablet) 5 mg PO BID [facility] Last Admin: 07/29/21 08:09 Dose: 5 mg Documented by: Atorvastatin Calcium (Atorvastatin Calcium 10 Mg Tablet) 10 mg PO BEDTIME [facility] Last Admin: 07/28/21 20:23 Dose: 10 mg Documented by: Carvedilol (Carvedilol 25 Mg Tablet) 25 mg PO BID [facility]; Protocol Last Admin: 07/29/21 08:09 Dose: 25 mg Documented by: Docusate Sodium (Docusate Sodium 100 Mg Capsule) 100 mg PO DAILY PRN PRN Reason: Constipation Folic Acid (Folic Acid 1 Mg Tablet) 1 mg PO SUMOTUTHFRSA [facility] Last Admin: 07/29/21 08:20 Dose: 1 mg Documented by: Furosemide (Furosemide 40 Mg Tablet) 40 mg PO BID@0900,1800 [facility]; Protocol Last Admin: 07/29/21 08:09 Dose: 40 mg Documented by: Methotrexate (Methotrexate Sodium 2.5 Mg Tablet) 12.5 mg PO We@0900 [facility] Last Admin: 07/25/21 08:52 Dose: 12.5 mg Documented by: Metoprolol Tartrate (Metoprolol Tartrate 5 Mg/5 Ml Vial) 2.5 mg IVPUSH Q6H PRN PRN Reason: HR>110 Last Admin: 07/26/21 13:02 Dose: 2.5 mg Documented by: Multivitamins/Vitamin C (Multivitamin Tablet) 1 tab PO DAILY [facility] Last Admin: 07/29/21 08:09 Dose: 1 tab Documented by: Ondansetron HCl (Ondansetron Hcl 4 Mg/2 Ml Vial) 4 mg IVPUSH Q8H PRN PRN Reason: Nausea and Vomiting Pharmacy Consult (Consult Rx Perform Med Rec) 1 each MISCELLANE ONCE PRN PRN Reason: Consult order Silver Sulfadiazine (Silver Sulfadiazine 1 % Cream 20 Gm Tube) 1 appl TOPICAL BID [facility] Last Admin: 07/29/21 08:13 Dose: 1 appl Documented by: Sodium Chloride (0.9 % Sodium Chloride Flush 3 Ml Syringe) 3 ml IVFLUSH QSHIFT [facility] Last Admin: 07/29/21 08:08 Dose: 3 ml Documented by: Spironolactone (Spironolactone 25 Mg Tablet) 12.5 mg PO DAILY [facility]; Protocol Last Admin: 07/26/21 09:20 Dose: Not Given Documented by: Valsartan (Valsartan 40 Mg Tablet) 20 mg PO BID [facility]; Protocol Last Admin: 07/26/21 09:21 Dose: Not Given Documented by: Vitamin D (Cholecalciferol (Vitamin D3) 25 Mcg Tablet) 125 mcg PO BID [facility] Last Admin: 07/29/21 08:09 Dose: 125 mcg Documented by: Time Spent With Patient Time: Total time spent is greater than 50% in coordination of care (as documented) at patient's floor/unit and/or counseling patient: Time with patient: 25 - 35 minutes Progress Note: Quality Stroke Does the patient have a stroke diagnosis?: No Procedures Date of Service Date of Service: 07/29/21
[2021-07-29 11:31] VITALS: BP 90/53; PULSE 74; RESP 18; TEMP 36.5; O2SAT 96
[2021-07-29 11:52] VITALS: O2SAT 96
[2021-07-30 15:41] LABS: Troponin-I High Sensitivity 20.2 ng/L (<3.5-17.0)
== END 2021-07-29 01:30 | disposition home or self-care (01) | DRG 308 ==
LOC: HO.ED 20:15 → HO.EDOVER 21:44 → HO.IMC 23:22
PROVIDERS: Internal Medicine; Internal Medicine Cardiovascular Disease; Admitting Provider Internal Medicine; Emergency Provider Internal Medicine; PCP Internal Medicine; Visit Provider Hospitalist
PROC: 5A2204Z Restoration of Cardiac Rhythm, Single (ICD-10-PCS; principal; 2021-07-27 12:50)
DX: I48.19 Other persistent atrial fibrillation (principal); I50.23 Acute on chronic systolic (congestive) heart failure; E78.5 Hyperlipidemia, unspecified; I25.10 Atherosclerotic heart disease of native coronary artery without angina pectoris; I44.7 Left bundle-branch block, unspecified; I25.5 Ischemic cardiomyopathy; M06.9 Rheumatoid arthritis, unspecified; Z20.822 Contact with and (suspected) exposure to COVID-19; Z95.810 Presence of automatic (implantable) cardiac defibrillator; Z87.891 Personal history of nicotine dependence; Z88.2 Allergy status to sulfonamides; Z79.01 Long term (current) use of anticoagulants; Z79.899 Other long term (current) drug therapy
CPT/HCPCS: 36415; 71045; 80048; 80076; 83735; 83880; 84484; 85025; 85610; 85730; 87635; 92960; 93005; 93284; 93306; 93312; 96374; 96375; 96376; 99285; J0171; J0282; J0461; J1160; J1940; J2370; Q9957

== ENCOUNTER → 2021-08-08 10:53 | Outpatient (BNVA) | payer MEDICARE, MEDICAID, SELFPAY | PROVIDERS: PCP Internal Medicine; Referring Provider Internal Medicine; Visit Provider Internal Medicine Cardiovascular Disease | DX: Z45.02 Encounter for adjustment and management of automatic implantable cardiac defibrillator (principal); I48.19 Other persistent atrial fibrillation; I50.9 Heart failure, unspecified | CPT/HCPCS: 93005; 99212 ==

== ENCOUNTER 2021-08-10 11:52 | Day surgery (SDC) | payer MEDICARE, MEDICAID, SELFPAY ==
--- NOTE | 2021-08-09 15:26 | HO.ANESPROP2 ---
HPI - Anesthesia Eval Consult details Narrative: 66yo F for Cardioversion *Multiple Med Allergies* s/p JEREMI/Cardioversion 07/28/21 with TIVA then repeat cardioversion with GA-mask same day ICD in situ Eliquis for afib PMFSH Active Problems Active Problems: All Active Problems (Updated 08/08/21 @ 13:50 by Chris Saxena MD) CHF (congestive heart failure) (Acute) Biventricular ICD (implantable cardioverter-defibrillator) in place (Acute) Persistent atrial fibrillation (Acute) Past Medical History Medical History Atrial fibrillation with RVR Biventricular ICD (implantable cardioverter-defibrillator) in place Blind left eye CAD (coronary artery disease) CHF (congestive heart failure) Congestive heart failure H/O cardiac pacemaker Nonischemic cardiomyopathy Persistent atrial fibrillation Rheumatoid arthritis Family History Family history of problems with anesthesia: No Surgical History Surgical History No pertinent past surgical history History of Problems with Anesthesia: No Social History Social History Household Members: Significant Other Housing: House Do you presently have visiting nurse or other home services: No Patient Tobacco Use Status: Former Tobacco user Quit Date: 2010 Tobacco use type: Cigarette Cigarette Packs Per Day: 1 Cigarettes Per Day: 20.0 Second Hand Smoke Exposure: No service: No Current occupational status: retired Meds Allergies Allergy/AdvReac Type Severity Reaction Status Date / Time erythromycin base Allergy Unknown NAUSEA Verified 07/24/21 16:52 [ERYTHROMYCIN BASE] indomethacin [Indomethacin] Allergy Unknown STOMACH Verified 07/24/21 16:52 UPSET & HEADACHE Sulfa (Sulfonamide Allergy Unknown Hives Verified 07/24/21 16:52 Antibiotics) sulfamethoxazole Allergy Unknown HIVES Verified 07/24/21 16:52 [From BACTRIM] trimethoprim [From BACTRIM] Allergy Unknown HIVES Verified 07/24/21 16:52 azithromycin [From Zithromax] AdvReac Unknown NAUSEA & Verified 07/24/21 16:52 VOMITTING Pt states no known food Allergy Unknown Hives Uncoded 07/24/21 16:52 allerg Home Medications Medication Instructions Recorded Confirmed Last Taken Type biotin 125 mg PO DAILY 1108/23/21 07/24/21 History calcium carbonate 500 mg calcium 500 mg PO DAILY 07/24/21 08/23/21 07/24/21 History (1,250 mg) tablet (Calcium 500) cholecalciferol (vitamin D3) 125 125 mcg PO BID 07/24/21 08/23/21 07/24/21 History mcg (5,000 unit) tablet (Vitamin D3) folic acid 1 mg tablet 1 mg PO SUMOTUTHFRSA 07/24/21 08/23/21 07/24/21 History methotrexate sodium 2.5 mg tablet 5 tab PO WE 07/24/21 08/23/21 07/18/21 History multivitamin 1 tab PO DAILY 07/24/21 08/23/21 07/24/21 History Exam Exam Date and Time: August 09, 2021 1526 Pertinent Lab Results Pertinent Lab Results: Laboratory Tests 07/25/21 07/29/21 06:37 06:31 WBC 4.2 L Hgb 10.4 L Hct 32.1 L Plt Count 191 Sodium 139 Potassium 3.4 Chloride 96 Carbon Dioxide 34 H BUN 21 H Creatinine 1.16 Narrative Narrative: EKG 07/2021 Atrial fibrillation with left bundle-branch block at 91 beats per minute Cardiac Device Check 07/2021 Details: Biventricular [employer] ICD in place.? Battery life is at 2.8 months.? Programmed in VVIR.? Noted underlying atrial fibrillation, however atrial activity is much more prominent.? Biventricular pacing is reduced.? Pacing and shock lead impedance is stable. ECHO 07/2021 Conclusion: ? 1. Severe LV systolic dysfunction with LVEF of around 20%? ? 2. No intracardiac masses, thrombi or vegetations? 3. Severely dilated left atrium? 4. Mild aortic and mitral regurgitation? 5. [id number] tricuspid regurgitation? 6. Small amount of pericardial effusion on the left atrium and ? the right atrium and trivial around the left ventricle ? 7. Normal ascending aortic size? Assessment and Plan Assessment Anesthesia Assessment: Chart Reviewed Final Anesthetic Review Family History of Problems with Anesthesia: No History of Problems with Anesthesia: No
--- NOTE | 2021-08-10 12:15 | MHC.SHP ---
Pre-Procedural Eval Section A Date of Service: 08/10/21 The patient is an INPATIENT: No Changes since office visit: Yes Patient answered all questions; No Cold of Flu in the past 2 weeks, No New Medical Problems and No Changes in Medication The History & Physical has been completed within 30 days and I have reviewed it.: Yes Section B Chief Complaint: A-Fib Allergies: Allergies Allergy/AdvReac Type Severity Reaction Status Date / Time erythromycin base Allergy Unknown NAUSEA Verified 07/24/21 16:52 [ERYTHROMYCIN BASE] indomethacin [Indomethacin] Allergy Unknown STOMACH Verified 07/24/21 16:52 UPSET & HEADACHE Sulfa (Sulfonamide Allergy Unknown Hives Verified 07/24/21 16:52 Antibiotics) sulfamethoxazole Allergy Unknown HIVES Verified 07/24/21 16:52 [From BACTRIM] trimethoprim [From BACTRIM] Allergy Unknown HIVES Verified 07/24/21 16:52 azithromycin [From Zithromax] AdvReac Unknown NAUSEA & Verified 07/24/21 16:52 VOMITTING Pt states no known food Allergy Unknown Hives Uncoded 07/24/21 16:52 allerg Plan I have reviewed the history and physical and performed a pertinent physical examination on my patient. No changes have occurred unless specified.
[2021-08-10 12:59] VITALS: BMI 28.1
[2021-08-10 13:01] VITALS: BP 117/72; PULSE 87; RESP 16; TEMP 36.2; O2SAT 100
--- NOTE | 2021-08-10 13:16 | HO.ANESPROP2 ---
[facility] Active Problems Active Problems: All Active Problems (Updated 08/08/21 @ 13:50 by Chris Saxena MD) CHF (congestive heart failure) (Acute) Biventricular ICD (implantable cardioverter-defibrillator) in place (Acute) Persistent atrial fibrillation (Acute) Past Medical History Medical History (Updated 08/08/21 @ 13:50 by Chris Saxena MD) Atrial fibrillation with RVR Biventricular ICD (implantable cardioverter-defibrillator) in place Blind left eye CAD (coronary artery disease) CHF (congestive heart failure) Congestive heart failure H/O cardiac pacemaker Nonischemic cardiomyopathy Persistent atrial fibrillation Rheumatoid arthritis Family History Family history of problems with anesthesia: No Surgical History Surgical History No pertinent past surgical history History of Problems with Anesthesia: No Social History Social History Household Members: Significant Other Housing: House Do you presently have visiting nurse or other home services: No Patient Tobacco Use Status: Former Tobacco user Quit Date: 2010 Tobacco use type: Cigarette Cigarette Packs Per Day: 1 Cigarettes Per Day: 20.0 Second Hand Smoke Exposure: No Use of substances other than those prescribed or required for medical reasons: No Are you DNR?: No Advance Directives: No Advance Directives Information Provided: Yes Advance Directives on File: No service: No Current occupational status: retired Meds Allergies Allergy/AdvReac Type Severity Reaction Status Date / Time erythromycin base Allergy Unknown NAUSEA Verified 07/24/21 16:52 [ERYTHROMYCIN BASE] indomethacin [Indomethacin] Allergy Unknown STOMACH Verified 07/24/21 16:52 UPSET & HEADACHE Sulfa (Sulfonamide Allergy Unknown Hives Verified 07/24/21 16:52 Antibiotics) sulfamethoxazole Allergy Unknown HIVES Verified 07/24/21 16:52 [From BACTRIM] trimethoprim [From BACTRIM] Allergy Unknown HIVES Verified 07/24/21 16:52 azithromycin [From Zithromax] AdvReac Unknown NAUSEA & Verified 07/24/21 16:52 VOMITTING Pt states no known food Allergy Unknown Hives Uncoded 07/24/21 16:52 allerg Active Medications: Current Medications Lactated Ringer's (Lr) 1,000 mls @ 0 mls/hr IVCONT .Q0M CAR Sodium Chloride (0.9 % Sodium Chloride Flush 3 Ml Syringe) 3 ml IVFLUSH QSHIFT [facility] Home Medications Medication Instructions Recorded Confirmed Last Taken Type biotin 125 mg PO DAILY 07/24/21 08/08/21 07/24/21 History calcium carbonate 500 mg calcium 500 mg PO DAILY 07/24/21 08/08/21 07/24/21 History (1,250 mg) tablet (Calcium 500) cholecalciferol (vitamin D3) 125 125 mcg PO BID 07/24/21 08/08/21 07/24/21 History mcg (5,000 unit) tablet (Vitamin D3) folic acid 1 mg tablet 1 mg PO SUMOTUTHFRSA 07/24/21 08/08/21 07/24/21 History methotrexate sodium 2.5 mg tablet 5 tab PO WE 07/24/21 08/08/21 07/18/21 History multivitamin 1 tab PO DAILY 07/24/21 08/08/21 07/24/21 History simvastatin 20 mg tablet 20 mg PO BEDTIME 07/24/21 08/08/21 07/23/21 History Exam Exam Date and Time: August 10, 2021 1316 Height,Weight and Vital Signs: Height 5 ft 5 in Weight 76.657 kg Last Vital Signs Temp 97.1 F 08/10/21 13:01 Pulse 87 08/10/21 13:01 Resp 16 08/10/21 13:01 BP 117/72 08/10/21 13:01 Pulse Ox 100 08/10/21 13:01 Airway Mallampati Class: I TM Dist: >3cm Loose/Missing/Broken Teeth: No Heart: RRR Lungs: CTA Assessment and Plan Assessment Anesthesia Assessment: Anesthesia Plan Discussed and Chart Reviewed Final Anesthetic Review Family History of Problems with Anesthesia: No History of Problems with Anesthesia: No NPO: Yes ASA Class: III Final Preanesthetic Review: No Changes in Pt Med Stat, Meds/Allgs Chart Reviewed, Consent Obtained/Reviewed and Anes Risks/Benef Reviewed Patient Risk: Intermediate Procedure Risk: Low Anesthetic Plan Anesthetic Plan: MAC: Disposition: Standard PACU
[2021-08-10] MEDS: Lactated Ringers 1,000 ML 10 ML IVCONT (13:37)
[2021-08-10 14:06] VITALS: BP 96/49; PULSE 75; RESP 16; TEMP 36.8; O2SAT 100
--- NOTE | 2021-08-10 14:07 | ECG_ITS ---
Test Reason : s/p cardioversion Blood Pressure : / mmHG Vent. Rate : 060 BPM Atrial Rate : 060 BPM P-R Int : 144 ms QRS Dur : 166 ms QT Int : 550 ms P-R-T Axes : 000 -66 084 degrees QTc Int : 550 ms AV dual-paced rhythm Abnormal ECG When compared with ECG of 24-JUL-2021 16:53, Vent. rate has decreased BY 53 BPM AV dual-paced rhythm has replaced Atrial fibrillation Referred By: Chris Saxena Electronically Signed By:JENNIFER TUTTLE MD
--- NOTE | 2021-08-10 14:08 | HO.CARDIVERS ---
Cardioversion Procedure Note Cardioversion Date of Procedure: 08/10/2021 Ordering Provider: Myself Performing Provider: Myself Indication for Procedure: Persistent atrial fibrillation with severe LV systolic dysfunction heart failure Pre-Op Diagnosis: Same Post-Op Diagnosis: Normal sinus rhythm Performed with Transesophageal Echo: No History: See my office note from 2 days ago Consent: Verbal and Written consent was obtained from the patient before starting and confirming oral anticoagulation use The patient was made aware of the risk of synchronized cardioversion including risks, benefits, alternatives 2nd open to the procedure Procedure: After consent obtained, cardioversion pads were attached in anteroposterior configuration and the patient was sedated by the anesthesia team. Once adequate sedation achieved, patient was delivered 200 joules of biphasic synchronized energy in anteroposterior configuration. Complications: None Impression: Converted successfully to normal sinus rhythm Recommendations: 1. Twelve lead EKG 2. Continue amiodarone and oral anticoagulation 3. ICD was reprogrammed, see event note 4. Follow-up in 2 weeks
--- NOTE | 2021-08-10 14:10 | PM.EVENT ---
Event Note Date of Service: 08/10/21 Event Note: Biventricular [employer] ICD in place. Reprogrammed from VVIR to the ED DDDR at 60 beats per minute. Atrial and biventricular pacing thresholds excellent and reprogrammed to enhance battery life. Atrial sensing was at 1 mV and reprogrammed to provide adequate sensing. Ventricular sensing is excellent. Pacing and shock lead impedance is stable. Battery life is at 2.8 months
[2021-08-10 14:11] VITALS: BP 104/63; PULSE 60; RESP 17; O2SAT 100
[2021-08-10 14:16] VITALS: BP 104/53; PULSE 60; RESP 17; O2SAT 100
[2021-08-10 14:21] VITALS: BP 104/53; PULSE 60; RESP 17; O2SAT 98
[2021-08-10 14:36] VITALS: BP 109/53; PULSE 60; RESP 17; TEMP 36.7; O2SAT 100
== END 2021-08-10 15:41 | disposition home or self-care (01) ==
PROVIDERS: PCP Internal Medicine; Visit Provider Internal Medicine Cardiovascular Disease
PROC: 5A2204Z Restoration of Cardiac Rhythm, Single (ICD-10-PCS; principal; 2021-08-10 13:30)
DX: I48.19 Other persistent atrial fibrillation (principal); I50.23 Acute on chronic systolic (congestive) heart failure; I42.8 Other cardiomyopathies; Z79.01 Long term (current) use of anticoagulants; Z79.899 Other long term (current) drug therapy; Z95.810 Presence of automatic (implantable) cardiac defibrillator; Z88.1 Allergy status to other antibiotic agents; Z88.2 Allergy status to sulfonamides; Z87.891 Personal history of nicotine dependence
CPT/HCPCS: 92960; 93005

== ENCOUNTER → 2021-08-23 09:29 | Outpatient (BNVA) | payer MEDICARE, MEDICAID, SELFPAY | PROVIDERS: PCP Internal Medicine; Referring Provider Internal Medicine; Visit Provider Internal Medicine Cardiovascular Disease | DX: Z45.02 Encounter for adjustment and management of automatic implantable cardiac defibrillator (principal); I48.19 Other persistent atrial fibrillation; I50.9 Heart failure, unspecified | CPT/HCPCS: 93005; 99212 ==

== ENCOUNTER 2021-09-05 12:39 | Day surgery (SDC) | payer MEDICARE, MEDICAID, SELFPAY ==
[2021-09-05 12:47] VITALS: BMI 29.1
[2021-09-05 13:03] VITALS: BP 113/57; PULSE 82; RESP 16; TEMP 36.3; O2SAT 98
--- NOTE | 2021-09-05 13:12 | P.CONAN_ITS ---
Documented by User: Amarilis Siddiqui MD 09/05/21 13:13 HPI - Anesthesia Eval Consult details Narrative: 66 yo female patient for ICD Generator Change PMF Active Problems Active Problems: All Active Problems (Updated 08/08/21 @ 13:50 by Chris Saxena MD) CHF (congestive heart failure) (Acute) Biventricular ICD (implantable cardioverter-defibrillator) in place (Acute) Persistent atrial fibrillation (Acute) Past Medical History Medical History Atrial fibrillation with RVR Biventricular ICD (implantable cardioverter-defibrillator) in place Blind left eye CAD (coronary artery disease) CHF (congestive heart failure) Congestive heart failure H/O cardiac pacemaker Nonischemic cardiomyopathy Persistent atrial fibrillation Rheumatoid arthritis Family History Family history of problems with anesthesia: No Surgical History Surgical History No pertinent past surgical history History of Problems with Anesthesia: No Social History Social History Household Members: Significant Other Housing: House Do you presently have visiting nurse or other home services: No Patient Tobacco Use Status: Former Tobacco user Quit Date: 2010 Tobacco use type: Cigarette Cigarette Packs Per Day: 1 Cigarettes Per Day: 20.0 Second Hand Smoke Exposure: No Use of substances other than those prescribed or required for medical reasons: No Are you DNR?: No Advance Directives: No Advance Directives Information Provided: Yes Recently lost weight without trying: No Nutrition Risks: No Nutritional Risk Patient : No service: No Current occupational status: retired Meds Allergies Allergy/AdvReac Type Severity Reaction Status Date / Time erythromycin base Allergy Unknown NAUSEA Verified 07/24/21 16:52 [ERYTHROMYCIN BASE] indomethacin [Indomethacin] Allergy Unknown STOMACH Verified 07/24/21 16:52 UPSET & HEADACHE Sulfa (Sulfonamide Allergy Unknown Hives Verified 07/24/21 16:52 Antibiotics) sulfamethoxazole Allergy Unknown HIVES Verified 07/24/21 16:52 [From BACTRIM] trimethoprim [From BACTRIM] Allergy Unknown HIVES Verified 07/24/21 16:52 azithromycin [From Zithromax] AdvReac Unknown NAUSEA & Verified 07/24/21 16:52 VOMITTING Pt states no known food Allergy Unknown Hives Uncoded 07/24/21 16:52 allerg Home Medications Medication Instructions Recorded Confirmed Last Taken Type biotin 125 mg PO DAILY 07/24/21 08/23/21 07/24/21 History calcium carbonate 500 mg calcium 500 mg PO DAILY 07/24/21 08/23/21 07/24/21 History (1,250 mg) tablet (Calcium 500) cholecalciferol (vitamin D3) 125 125 mcg PO BID 07/24/21 08/23/21 07/24/21 History mcg (5,000 unit) tablet (Vitamin D3) folic acid 1 mg tablet 1 mg PO SUMOTUTHFRSA 07/24/21 08/23/21 07/24/21 History methotrexate sodium 2.5 mg tablet 5 tab PO WE 07/24/21 08/23/21 07/18/21 History multivitamin 1 tab PO DAILY 07/24/21 08/23/21 07/24/21 History Exam Exam Date and Time: September 05, 2021 1312 Height,Weight and Vital Signs: Height 5 ft 5 in Weight 79.379 kg Last Vital Signs Temp 97.3 F 09/05/21 13:03 Pulse 82 09/05/21 13:03 Resp 16 09/05/21 13:03 BP 113/57 L 09/05/21 13:03 Pulse Ox 98 09/05/21 13:03 Assessment and Plan Final Anesthetic Review Family History of Problems with Anesthesia: No History of Problems with Anesthesia: No Documented by User: Ebony Keller MD 09/05/21 13:44 [facility]LY [facility] Past Medical History Medical History Atrial fibrillation with RVR Biventricular ICD (implantable cardioverter-defibrillator) in place Blind left eye CAD (coronary artery disease) CHF (congestive heart failure) Congestive heart failure H/O cardiac pacemaker Nonischemic cardiomyopathy Persistent atrial fibrillation Rheumatoid arthritis Surgical History Surgical History No pertinent past surgical history Social History Social History Household Members: Significant Other Housing: House Do you presently have visiting nurse or other home services: No Patient Tobacco Use Status: Former Tobacco user Quit Date: 2010 Tobacco use type: Cigarette Cigarette Packs Per Day: 1 Cigarettes Per Day: 20.0 Second Hand Smoke Exposure: No Use of substances other than those prescribed or required for medical reasons: No Are you DNR?: No Advance Directives: No Advance Directives Information Provided: Yes Recently lost weight without trying: No Nutrition Risks: No Nutritional Risk Patient : No service: No Current occupational status: retired Meds Allergies Allergy/AdvReac Type Severity Reaction Status Date / Time erythromycin base Allergy Unknown NAUSEA Verified 07/24/21 16:52 [ERYTHROMYCIN BASE] indomethacin [Indomethacin] Allergy Unknown STOMACH Verified 07/24/21 16:52 UPSET & HEADACHE Sulfa (Sulfonamide Allergy Unknown Hives Verified 07/24/21 16:52 Antibiotics) sulfamethoxazole Allergy Unknown HIVES Verified 07/24/21 16:52 [From BACTRIM] trimethoprim [From BACTRIM] Allergy Unknown HIVES Verified 07/24/21 16:52 azithromycin [From Zithromax] AdvReac Unknown NAUSEA & Verified 07/24/21 16:52 VOMITTING Pt states no known food Allergy Unknown Hives Uncoded 07/24/21 16:52 allerg Home Medications Medication Instructions Recorded Confirmed Last Taken Type biotin 125 mg PO DAILY 07/24/21 08/23/21 07/24/21 History calcium carbonate 500 mg calcium 500 mg PO DAILY 07/24/21 08/23/21 07/24/21 History (1,250 mg) tablet (Calcium 500) cholecalciferol (vitamin D3) 125 125 mcg PO BID 07/24/21 08/23/21 07/24/21 History mcg (5,000 unit) tablet (Vitamin D3) folic acid 1 mg tablet 1 mg PO SUMOTUTHFRSA 07/24/21 08/23/21 07/24/21 History methotrexate sodium 2.5 mg tablet 5 tab PO WE 07/24/21 08/23/21 07/18/21 History multivitamin 1 tab PO DAILY 07/24/21 08/23/21 07/24/21 History Exam Airway Mallampati Class: II (Caps 2 front top, 2 other caps om the side, upper and lowe r bridge) TM Dist: >3cm Neck ROM: Full Heart: paced Lungs: cta Assessment and Plan Assessment Anesthesia Assessment: Anesthesia Plan Discussed and Chart Reviewed Final Anesthetic Review NPO: Yes ASA Class: III Final Preanesthetic Review: No Changes in Pt Med Stat, Meds/Allgs Chart Reviewed and Consent Obtained/Reviewed Patient Risk: Intermediate Procedure Risk: Intermediate Anesthetic Plan Anesthetic Plan: MAC: Disposition: Standard PACU
[2021-09-05] MEDS: Lactated Ringers 1,000 ML 50 ML IVCONT (13:26)
--- NOTE | 2021-09-05 14:19 | P.HPCA_ITS ---
History of Present Illness History of Present Illness Date of Service: 09/05/21 Chief complaint: pacemaker Narrative: Naz Barrios is a 66 year old female with atrial fibirllation on apixaban, cardiomyopathy s/p [facility] BiV ICD. Here for generator change [facility] Past Medical History Medical History Atrial fibrillation with RVR Biventricular ICD (implantable cardioverter-defibrillator) in place Blind left eye CAD (coronary artery disease) CHF (congestive heart failure) Congestive heart failure H/O cardiac pacemaker Nonischemic cardiomyopathy Persistent atrial fibrillation Rheumatoid arthritis Surgical History Surgical History No pertinent past surgical history Social History Social History Household Members: Significant Other Housing: House Do you presently have visiting nurse or other home services: No Patient Tobacco Use Status: Former Tobacco user Quit Date: 2010 Tobacco use type: Cigarette Cigarette Packs Per Day: 1 Cigarettes Per Day: 20.0 Second Hand Smoke Exposure: No Use of substances other than those prescribed or required for medical reasons: No Are you DNR?: No Advance Directives: No Advance Directives Information Provided: Yes Recently lost weight without trying: No Nutrition Risks: No Nutritional Risk Patient : No service: No Current occupational status: retired Meds Allergies Allergy/AdvReac Type Severity Reaction Status Date / Time erythromycin base Allergy Unknown NAUSEA Verified 07/24/21 16:52 [ERYTHROMYCIN BASE] indomethacin [Indomethacin] Allergy Unknown STOMACH Verified 07/24/21 16:52 UPSET & HEADACHE Sulfa (Sulfonamide Allergy Unknown Hives Verified 07/24/21 16:52 Antibiotics) sulfamethoxazole Allergy Unknown HIVES Verified 07/24/21 16:52 [From BACTRIM] trimethoprim [From BACTRIM] Allergy Unknown HIVES Verified 07/24/21 16:52 azithromycin [From Zithromax] AdvReac Unknown NAUSEA & Verified 07/24/21 16:52 VOMITTING Pt states no known food Allergy Unknown Hives Uncoded 07/24/21 16:52 allerg Active Medications: Current Medications Lactated Ringer's (Lr) 1,000 mls @ 50 mls/hr IVCONT .Q20H CAR Last Admin: 09/05/21 13:26 Dose: 50 mls/hr Documented by: Home Medications Medication Instructions Recorded Confirmed Last Taken Type biotin 125 mg PO DAILY 07/24/21 08/23/21 07/24/21 History calcium carbonate 500 mg calcium 500 mg PO DAILY 07/24/21 08/23/21 07/24/21 History (1,250 mg) tablet (Calcium 500) cholecalciferol (vitamin D3) 125 125 mcg PO BID 07/24/21 08/23/21 07/24/21 History mcg (5,000 unit) tablet (Vitamin D3) folic acid 1 mg tablet 1 mg PO SUMOTUTHFRSA 07/24/21 08/23/21 07/24/21 History methotrexate sodium 2.5 mg tablet 5 tab PO WE 07/24/21 08/23/21 07/18/21 History multivitamin 1 tab PO DAILY 07/24/21 08/23/21 07/24/21 History Physical Exam Vital Signs: Vital Signs: Last Vital Signs Temp 97.3 F 09/05/21 13:03 Pulse 82 09/05/21 13:03 Resp 16 09/05/21 13:03 BP 113/57 L 09/05/21 13:03 Pulse Ox 98 09/05/21 13:03 BMI result Body Mass Index 29.1 Const: Orientation/consciousness: oriented to person Chest: Chest palpation & inspection: normal inspection of the chest Cardio: Jugular venous distension: no JVD Rate: regular rate Rhythm: regular rhythm Heart sounds: S1 normal heart sound present, S2 normal heart sound present and Abnormal heart opening sounds GI: Inspection: Yes normal to inspection and No distended Skin: General skin exam: no rashes or lesions noted Neuro: General: oriented to person Assessment and Plan (1) CHF (congestive heart failure): Status: Acute (2) Biventricular ICD (implantable cardioverter-defibrillator) in place: Status: Acute (3) Persistent atrial fibrillation: Status: Acute BiV ICD at [facility]. Plan for generator change today. Risks benefits and alternatives discussed including bleeding and infection. Patient verbalized agreement and understanding. Questions encouraged and answered. Consent obtained. Quality Stroke Does the patient have a stroke diagnosis?: No VTE Prior VTE?: No VTE Risk Level:: Medical - low VTE Device Contraindication: Treatment Not Indicated VTE Drug Contraindication: Treatment Not Indicated Procedures Date of Service Date of Service: 09/05/21
[2021-09-05 15:50] VITALS: BP 98/45; PULSE 80; RESP 16; TEMP 36.6; O2SAT 100
--- NOTE | 2021-09-05 15:57 | W.PM.OPN ---
Operative Note Operative Note Date of Service: 09/05/21 Narrative: Procedure Date: 09/05/21 Pre-Operative Diagnosis: Elective Replacement Interval Post-Operative Diagnosis: BiV ICD Generator Change (Hdez) Procedure: SERVICE LIAISON REPRESENTATIVE-D Generator Removal SERVICE LIAISON REPRESENTATIVE-D Pacemaker Generator Implantation Pacer/Lead testing Senior Administrator Support: Sukhdev Avery M.D. Pediatrics Hospitalist: None Anesthesia: Anesthesia Service Drains: None Estimated Blood Loss: Minimal Complications: None Indications: Elective Replacement Interval Specimen removed: None Additional Studies ordered: None Drains: None Procedure: Informed consent was obtained. The patient was brought to the EP lab in the fasting state. Perioperative antibiotics were given with cefazolin. She received conscious sedation via the anesthesia service. She was prepped and draped in the usual sterile fashion. After subcutaneous infiltation with lidocaine, a #15 scalpel was used to make a 1.5 incision overlying the original incision. This was dissected down to the device pocket using blunt dissection. The device was isolated and delivered from the pocket without difficulty. It was disconnected from the leads, which were tested visually and electronically and found to be stable. The pocket was copiously irrigated with antibiotic solution. The new device was brought to the field and carefully connected to the leads. Appropriate SERVICE LIAISON REPRESENTATIVE-D function was noted. The entire assembly was inserted into the pocket, which was closed in 3 layers, using 2-0 and 3-0 polysorb and 4-0 monocryl.. Steri-strips and a sterile dressing were applied and the patient returned to the recovery room in good condition. Results Generator: A Lead: 2088 TC 52 cm [id number] As 0.3mV, Ap N/A, 360 ohms RV Lead: 7122q 65 cm [id number] RVs 5mV, RVp 1.25V @ 0.5ms, 360 Ohms Shock: 62 Ohms LV Lead: 1458q 75cm [id number] LVp 1.25V @ 0.5ms, 860 Ohms Final Settings: DDD 60/130 VT > 181 bpm, ATP x 3, 25J, 36J, 40J x 2 VF > 222 bpm, ATP x 1, 36J, 40J x 5 Impression: Successful SERVICE LIAISON REPRESENTATIVE-D generator change Plan: - Hold apixaban for 72 hours and resume on 09/08/21 - No repetitive motion or lifting heavy weight for 3-4 weeks - No driving, alcohol or making legal decisions for 24 hours. - Keep wound completely dry for 7 days; no showers. - No soaking in hot tubs or baths for 10 days. May sponge bath - Remove band-aid/tegaderm in 2 days; allow steristrips underneath to fall off naturally. - Please call our office if you notice any discharge or swelling around incision or fever. - Follow-up with Dr. Saxena within 2 weeks for a wound check or as scheduled.
[2021-09-05 16:05] VITALS: BP 104/61; PULSE 80; RESP 16; O2SAT 100
[2021-09-05 16:21] VITALS: BP 110/50; PULSE 80; RESP 16; TEMP 36.6; O2SAT 100
== END 2021-09-05 16:25 | disposition home or self-care (01) ==
PROVIDERS: PCP Internal Medicine; Visit Provider Internal Medicine Clinical Cardiac Electrophysiology
PROC: 0JPT0PZ Removal of Cardiac Rhythm Related Device from Trunk Subcutaneous Tissue and Fascia, Open Approach (ICD-10-PCS; CPT 33264; principal; 2021-09-05 14:00)
DX: Z45.02 Encounter for adjustment and management of automatic implantable cardiac defibrillator (principal); Z95.810 Presence of automatic (implantable) cardiac defibrillator; I50.9 Heart failure, unspecified; I48.19 Other persistent atrial fibrillation; I42.8 Other cardiomyopathies; I25.10 Atherosclerotic heart disease of native coronary artery without angina pectoris; Z79.01 Long term (current) use of anticoagulants; Z79.899 Other long term (current) drug therapy; Z88.2 Allergy status to sulfonamides; Z88.1 Allergy status to other antibiotic agents; Z87.891 Personal history of nicotine dependence; Z66 Do not resuscitate
CPT/HCPCS: 33264; 99234; C1882; J0690; J1100; J2250; J2370; J2405; J3010; J3370

== ENCOUNTER → 2021-10-05 10:17 | Outpatient (BNVA) | payer MEDICARE, SELFPAY | PROVIDERS: PCP Internal Medicine; Referring Provider Internal Medicine; Visit Provider Internal Medicine Cardiovascular Disease | DX: Z45.02 Encounter for adjustment and management of automatic implantable cardiac defibrillator (principal); I48.19 Other persistent atrial fibrillation; I95.9 Hypotension, unspecified; I50.20 Unspecified systolic (congestive) heart failure | CPT/HCPCS: 99212 ==

== ENCOUNTER → 2021-10-30 13:03 | Outpatient (BNVA) | payer MEDICARE, SELFPAY | PROVIDERS: PCP Internal Medicine; Referring Provider Internal Medicine; Visit Provider Internal Medicine Cardiovascular Disease | DX: I48.19 Other persistent atrial fibrillation (principal); I50.30 Unspecified diastolic (congestive) heart failure; Z79.01 Long term (current) use of anticoagulants; Z45.02 Encounter for adjustment and management of automatic implantable cardiac defibrillator | CPT/HCPCS: 99212 ==

== ENCOUNTER → 2021-11-09 12:48 | Outpatient (REF) | payer MEDICARE, SELFPAY ==
--- NOTE | 2021-11-09 12:52 | CA_ITS ---
Transthoracic Echocardiogram Patient (Last, First, Middle): Naz Barrios, Gender: Female Date of : 1955 Age: 66 Procedure Date: 11/09/2021 Procedure Type: Transthoracic Echocardiogram Location: OP Height: 165.1 cm Weight: 77.11 kg BSA: 1.85 m2 Heart Rate: bpm BP: 90 / 60 mmHg Weir Fisherman: VH/TO Referring MD: Sukhdev Avery MD Epidemiology Investigator: Chris Saxena MD Symptoms: I42.9 CARDIOMYOPATHY Study Quality: Fair ECG Rhythm: Ventriculary paced rhythm Conclusions: - 1. Mildly dilated left ventricle with moderate to severe LV systolic dysfunction LVEF of 30-35% 2. At least moderate biatrial enlargement 3. Weje-my-qcneadke mitral regurgitation 4. Mild aortic regurgitation 5. Mildly dilated ascending aorta at 3.8 cm 6. Normal RV systolic pressure 7. No gross pericardial effusion Findings Left Ventricle Mildly increased left ventricular cavity size. There is normal left ventricular wall thickness. The left ventricular systolic function is moderate to severely decreased. The visually estimated ejection fraction is between 30-35%. Diastolic function is indeterminate on the basis of available data. Right Ventricle Normal right ventricular cavity size. There is borderline right ventricular systolic function. There is an ICD wire seen in the right ventricle. Atria The left atrium is moderately dilated. There is no evidence of interatrial shunt. The right atrium is moderately dilated. A pacemaker wire is identified in the right atrium. Aortic Valve The aortic valve structure and function is likely normal. There is no aortic valve stenosis. There is mild aortic valve regurgitation. Mitral Valve There is mild anterior mitral leaflet thickening. There is mild to moderate mitral valve regurgitation. There is no mitral valve stenosis. Pulmonic Valve The pulmonic valve was not well visualized. Tricuspid Valve Normal tricuspid valve structure. There is mild tricuspid valve regurgitation. The right ventricular systolic pressure is normal. The right ventricular systolic pressure is 20 mmHg. There is no evidence of pulmonary hypertension. Great Vessels The pulmonary artery was not well visualized. There is mild dilatation of the ascending aorta measuring 3.80 cm. Venous The inferior vena cava is normal in size and collapses greater than 50% with inspiration. Pericardium/Pleural There is no evidence of pericardial effusion. Prior Study Comparison Changes noted compared to prior study dated: 07/27/2021. LV systolic function is improved Measurements 2D Linear Measurements IVSd: 1.09 0.6-0.9/0.6-1.0 cm LVIDd: 5.48 3.9-5.3/4.2-5.9 cm LVIDd Index: 2.96 2.4-3.2/2.2-3.1 cm/m2 LVIDs: 3.99 2.0-3.6 cm LVPWd: 0.93 0.7-1.1 cm Ao Root: 3.90 2.1-3.5 cm LA Diam: 4.70 2.7-3.8/3.0-4.0 cm LAIDs Index: 2.54 1.5-2.3 cm/m2 LV Mass: 267.25 67-162/88-224 g LV Mass Index: 144.46 43-95/49-115 g/m2 LVOT Diam: 2.30 3.0+(-)1.3 cm 2D Systolic Function EF 4C: 36.50 >55% EF 2C: 42.10 >55% EF BiP: 39.50 >55% Aortic Valve AoV Pk Ricahrdson: 0.97 AoV Mn Richardson: 0.72 AoV VTI: 0.19 AoV Pk Grad: 4.00 Aov Mn Grad: 2.00 VALENTINO Cont.VTI: 3.28 LVOT LVOT Pk Richardson: 0.87 LVOT Mn Richardson: 0.55 LVOT VTI: 0.15 LVOT Pk Grad: 3.00 LVOT Mn Grad: 1.00 LVOT Diam: 2.30 LVOT Area: 4.15 Right Ventricle TAPSE (mm): 17.00 TVS' Richardson: 7.07 Tricuspid Valve TR Pk Richardson: 2.06 TR Pk Grad: 17.00 RA Press: 3.00 RVSP: 20.00 Great Vessels Aorta Ao Root-2D: 3.90 2.0-3.7 cm Ao Asc: 3.80 2.1-3.4 cm Pulmonary Valve PV Pk Richardson: 0.83 Peak PV Grad: 3.00 Updated in Other Vendor System with Status of Final Chris Saxena MD electronically signed on 11/09/2021 5:13:43 PM with status of Final
== END ==
LOC: HO.CARD 12:48
PROVIDERS: PCP Internal Medicine; Visit Provider Internal Medicine Clinical Cardiac Electrophysiology
DX: Z13.89 Encounter for screening for other disorder (principal)
CPT/HCPCS: 93306

== ENCOUNTER 2021-11-09 14:04 | Outpatient (REF) | payer MEDICARE, SELFPAY ==
[2021-11-09 16:18] LABS: Anion Gap 9 (12-20); Blood Urea Nitrogen 11 mg/dL (9-16); Carbon Dioxide 30 mmol/L (22-29); Chloride 106 mmol/L (96-108); Estimated Glomerular Filt Rate 53; Glucose Random 95 mg/dL (60-115); Magnesium 2.2 mg/dL (1.6-2.6); Potassium 4.9 mmol/L (3.3-5.1); Sodium 140 mmol/L (135-145)
== END 2021-11-09 14:05 | disposition home or self-care (01) ==
LOC: HO.LAB 14:04
PROVIDERS: PCP Internal Medicine; Visit Provider Internal Medicine
DX: N18.9 Chronic kidney disease, unspecified (principal); I48.91 Unspecified atrial fibrillation; I42.9 Cardiomyopathy, unspecified
CPT/HCPCS: 36415; 80048; 83735; 93306

== ENCOUNTER → 2021-12-13 14:38 | Outpatient (BNVA) | payer MEDICARE, MEDICAID, SELFPAY | PROVIDERS: PCP Internal Medicine; Referring Provider Internal Medicine; Visit Provider Internal Medicine Cardiovascular Disease | DX: I48.19 Other persistent atrial fibrillation (principal); I50.30 Unspecified diastolic (congestive) heart failure; Z45.02 Encounter for adjustment and management of automatic implantable cardiac defibrillator; Z79.01 Long term (current) use of anticoagulants; Z79.899 Other long term (current) drug therapy | CPT/HCPCS: 93005; 99212 ==

== ENCOUNTER → 2021-12-19 12:25 | Outpatient (BNVA) | payer MEDICARE, MEDICAID, SELFPAY | PROVIDERS: PCP Internal Medicine; Referring Provider Internal Medicine; Visit Provider Nurse Practitioner Family | DX: Z13.89 Encounter for screening for other disorder (principal) ==

== ENCOUNTER → 2022-01-30 15:56 | Outpatient (BNVA) | payer MEDICARE, MEDICAID, SELFPAY | PROVIDERS: PCP Internal Medicine; Referring Provider Internal Medicine; Visit Provider Internal Medicine Cardiovascular Disease | DX: Z45.02 Encounter for adjustment and management of automatic implantable cardiac defibrillator (principal); I95.9 Hypotension, unspecified; I50.20 Unspecified systolic (congestive) heart failure; I48.0 Paroxysmal atrial fibrillation | CPT/HCPCS: 93005; 93284; 99212 ==

== ENCOUNTER → 2023-06-24 23:59 | Outpatient (BNV) | payer MEDICARE, MEDICAID, SELFPAY ==
--- NOTE | 2023-07-21 14:36 | MHC.OFFVIS ---
Intake Intake Visit Reasons: Remote ICD Check- [facility] Allergies erythromycin base [ERYTHROMYCIN BASE] Allergy (Unknown, Verified 11/23/21 14:49) NAUSEA indomethacin [Indomethacin] Allergy (Unknown, Verified 11/23/21 14:49) STOMACH UPSET & HEADACHE Sulfa (Sulfonamide Antibiotics) Allergy (Unknown, Verified 11/23/21 14:49) Hives sulfamethoxazole [From BACTRIM] Allergy (Unknown, Verified 11/23/21 14:49) HIVES trimethoprim [From BACTRIM] Allergy (Unknown, Verified 11/23/21 14:49) HIVES azithromycin [From Zithromax] Adverse Reaction (Unknown, Verified 11/23/21 14:49) NAUSEA & VOMITTING [facility] Medical History (Updated 01/30/22 @ 17:16 by Chris Saxena MD) Paroxysmal atrial fibrillation History of gastroesophageal reflux (GERD) HTN (hypertension) Heart failure with reduced ejection fraction Persistent atrial fibrillation CAD (coronary artery disease) Nonischemic cardiomyopathy Biventricular ICD (implantable cardioverter-defibrillator) in place Blind left eye Rheumatoid arthritis H/O cardiac pacemaker Atrial fibrillation with RVR Congestive heart failure Surgical History S/P biventricular cardiac pacemaker procedure History of implantable cardioverter-defibrillator (ICD) placement History of blepharoplasty History of repair of right rotator cuff Hx laparoscopic cholecystectomy History of Azeem-en-Y gastric bypass Social History Household Members: Significant Other Housing: House Do you presently have visiting nurse or other home services: No Patient Tobacco Use Status: Former Tobacco user Quit Date: 2010 Tobacco use type: Cigarette Cigarette Packs Per Day: 1 Cigarettes Per Day: 20.0 Second Hand Smoke Exposure: No service: No Current occupational status: retired Office Procedures Cardiac Device Check Cardiac Device Check Details: remote ICD report generated June 222022. Patient is not currently living locally and has moved to another state. Have told her multiple times to seek cardiology care locally. Patient's Bi V pacing 93% which is suboptimal. Intermittent episode of atrial fibrillation noted with total burden of 3%. Otherwise lead parameters and battery life are okay [id number] Cardiac Interrogation, implant defibrillator w/interim Procedure code (CPT) selection complete Coding Level of Care Code Procedure Only CPT Codes Cardiac Device Check - Cardiac Device 13: [id number] Cardiac Interrogation, implant defibrillator w/interim ([id number])
== END ==
PROVIDERS: PCP Internal Medicine; Visit Provider Internal Medicine Cardiovascular Disease
DX: I48.0 Paroxysmal atrial fibrillation (principal); Z95.810 Presence of automatic (implantable) cardiac defibrillator
CPT/HCPCS: 93295

== ENCOUNTER → 2023-09-23 23:59 | Outpatient (BNV) | payer MEDICARE, MEDICAID, SELFPAY ==
--- NOTE | 2023-09-30 16:28 | A.OFFVIS_ITS ---
Intake Intake Visit Reasons: Remote ICD Check- [facility] Allergies erythromycin base [ERYTHROMYCIN BASE] Allergy (Unknown, Verified 11/23/21 14:49) NAUSEA indomethacin [Indomethacin] Allergy (Unknown, Verified 11/23/21 14:49) STOMACH UPSET & HEADACHE Sulfa (Sulfonamide Antibiotics) Allergy (Unknown, Verified 11/23/21 14:49) Hives sulfamethoxazole [From BACTRIM] Allergy (Unknown, Verified 11/23/21 14:49) HIVES trimethoprim [From BACTRIM] Allergy (Unknown, Verified 11/23/21 14:49) HIVES azithromycin [From Zithromax] Adverse Reaction (Unknown, Verified 11/23/21 14:49) NAUSEA & VOMITTING [facility] Medical History (Updated 01/30/22 @ 17:16 by Chris Saxena MD) Paroxysmal atrial fibrillation History of gastroesophageal reflux (GERD) HTN (hypertension) Heart failure with reduced ejection fraction Persistent atrial fibrillation CAD (coronary artery disease) Nonischemic cardiomyopathy Biventricular ICD (implantable cardioverter-defibrillator) in place Blind left eye Rheumatoid arthritis H/O cardiac pacemaker Atrial fibrillation with RVR Congestive heart failure Surgical History S/P biventricular cardiac pacemaker procedure History of implantable cardioverter-defibrillator (ICD) placement History of blepharoplasty History of repair of right rotator cuff Hx laparoscopic cholecystectomy History of Azeem-en-Y gastric bypass Social History Household Members: Significant Other Housing: House Do you presently have visiting nurse or other home services: No Patient Tobacco Use Status: Former Tobacco user Quit Date: 2010 Tobacco use type: Cigarette Cigarette Packs Per Day: 1 Cigarettes Per Day: 20.0 Second Hand Smoke Exposure: No service: No Current occupational status: retired Office Procedures Cardiac Device Check Cardiac Device Check Details: Remote ICD report generated 09/27/2023. Patient is having increasing burden of atrial fibrillation suboptimal Bi V pacing [id number] Cardiac Interrogation, implant defibrillator w/interim Procedure code (CPT) selection complete Assessment & Plan Assessment & Plan (1) Biventricular ICD (implantable cardioverter-defibrillator) in place: Comment: [place] [facility] Code(s): Z95.810 - Presence of automatic (implantable) cardiac defibrillator Plan: See above. Patient has moved away from the area but we are still getting the remote. Will contact the patient to find local phlebotomist lab assistant. Will discontinue her service after making her aware of the results Coding Level of Care Code Procedure Only Diagnoses Biventricular ICD (implantable cardioverter-defibrillator) in place Z95.810 CPT Codes Cardiac Device Check - Cardiac Device 13: [id number] Cardiac Interrogation, implant defibrillator w/interim ([id number])
== END ==
PROVIDERS: PCP Internal Medicine; Visit Provider Internal Medicine Cardiovascular Disease
DX: I42.9 Cardiomyopathy, unspecified (principal); Z95.810 Presence of automatic (implantable) cardiac defibrillator
CPT/HCPCS: 93295